=== PATIENT | female | born 1950 | race Caucasian/White ===

== ENCOUNTER → 2017-06-19 | Outpatient (CLI) | payer MEDICARE ==
[~2017-06-19] MED LIST: BONIVA; CALCIUM/MAG/ZINC PO; DICL-86 PO; FAMO1TAB36 PO; FIBER PO; FISH1000 PO; FOLI1TAB PO; INFL100P IV; LEVE500 PO; LEVE750T8 PO; METH-60 IM; TAB-TAB PO; VITA100T55 OR; VITA200017 OR; [UNRECOGNIZED DRUG - OTHER] PO
--- NOTE | 2017-06-21 09:41 | RSPPFT ---
DATE OF PROCEDURE: 06/19/17 COMMENTS: VOLUMES DYNAMIC: FVC and FEV1 moderately reduced. STATIC: TLC and FRC mildly reduced; RV normal. FLOWS: FEV1% normal, FEF 25-75 severely reduced. DIFFUSION: Severely reduced. FLOW VOLUME LOOP: Pattern of variable intrathoracic airways obstruction. IMPRESSION: Moderate obstructive ventilatory defect with reduction in diffusion consistent with emphysema. Airways resistance is increased. There is minimal change post-bronchodilator.
== END ==
LOC: HRSP 09:01
PROVIDERS: ATTEND Internal Medicine
DX: J44.9 Chronic obstructive pulmonary disease, unspecified (principal)
CPT/HCPCS: 94060; 94620; 94726; 94729; 95012

== ENCOUNTER 2017-08-13 18:56 | Inpatient (IN) | payer MEDICARE ==
[~2017-08-13] VITALS: Ht 167.6 cm; Wt 68.6 kg
[2017-08-13 19:05] VITALS: BP 136/78; PULSE 99; RESP 20; TEMP 98.1; O2SAT 94
--- NOTE | 2017-08-13 19:27 | PD ---
HPI . Altered mental status Chief Complaint: Altered Mental Status Time Seen by Provider: 19:07 Travel History International Travel<30 days: No Contact w/Intl Traveler<30days: No Traveled to known affect area: No History of Present Illness HPI 67-year-old female sent in via EMS secondary to altered mental status. EMS said they may have seen a brief 5 second seizure with overall body rigidity and patient has been having a preferential rightward gaze and did not voluntarily moving her left side of her body including left upper and left lower extremity. Patient does spontaneously move all 4 extremities however, and does look to her left spontaneously. Patient is a poor historian. As per discussion with nurse, family was contacted and stated that this is the patient's normal level of activity. Unclear if the patient's partial focal exam above was communicated to the family. [facility] Past Medical History Narrative Medical Past medical history reviewed Cancer: No Diabetes: No Hepatitis: No Hiatal Hernia: No Thyroid Disease: No Past Surgical History Oral Surgery: Yes (AGE 15 T&A) Pacemaker: No Social History Alcohol Use: No Tobacco Use: No Substance Use: No Allergies-Medications (Allergen,Severity, Reaction): Coded Allergies: bertholletia excelsa (Unverified Allergy, Intermediate, MOUTH SWELLING; RESP PROBLEMS, 08/13/17) diatrizoate meglumine (Unverified Allergy, Intermediate, SEVERE HIVES, 08/13) gadobenic acid (Unverified Allergy, Intermediate, SEVERE HIVES, 08/13/17) gadodiamide (Unverified Allergy, Intermediate, SEVERE HIVES, 08/13/17) gadoteridol (Unverified Allergy, Intermediate, SEVERE HIVES, 08/13/17) iodixanol (Unverified Allergy, Intermediate, SEVERE HIVES, 08/13/17) iohexol (Unverified Allergy, Intermediate, SEVERE HIVES, 08/13/17) risedronate sodium (Unverified Allergy, Intermediate, SEVERE CHILLS, ) tree nut (Unverified Allergy, Intermediate, MOUTH SWELLING; RESP PROBLEMS , 08/13/17) walnut (Unverified Allergy, Intermediate, MOUTH SWELLING; DIFFICULT RESP. , 08/13/17) Reported Meds & Prescriptions Reported Meds & Active Scripts Active Reported [Organic Wheat Grass] PO DAILY [Calcium/Mag/Zinc] 1 Tab PO BID [Fiber Supp] 2 Cap PO BID [Boniva ] DIRECTED I.V. Q 3 MONTHS [Methotrexate] IM WEEKLY 50MG/2ML ; PT USES 0.6 CC ONCE WEEKLY Narrative Medication Allergies and medications reviewed Review of Systems ROS Limitations: Altered Mental Status, Poor Historian Physical Exam Exam Limitations: Altered Mental Status, Poor Historian Narrative GENERAL: Awake and confused, responses slowed SKIN: Warm and dry. HEAD: Atraumatic. Normocephalic. EYES: Pupils equal and round. No scleral icterus. No injection or drainage. ENT: No nasal bleeding or discharge. Mucous membranes pink and moist. NECK: Trachea midline. No JVD. CARDIOVASCULAR: Regular rate and rhythm. RESPIRATORY: No accessory muscle use. Clear to auscultation. Breath sounds equal bilaterally. GASTROINTESTINAL: Abdomen soft, non-tender, nondistended. Hepatic and splenic margins not palpable. MUSCULOSKELETAL: Extremities without clubbing, cyanosis, or edema. No obvious deformities. NEUROLOGICAL: Awake confused. Patient responding more to stimulus on her right side. Patient able to spontaneously and move her left MA left lower extremity, however will not move either to command. No facial droop. Speech is somewhat slurred, difficult to assess for dysarthria or word finding secondary to confusion and probable altered mental status. PSYCHIATRIC: Difficult exam secondary to altered mental status Data Data Last Documented VS Vital Signs Date Time Temp Pulse Resp B/P (MAP) Pulse Ox O2 Delivery O2 Flow Rate FiO2 08/13/17 20:07 110 25 152/81 (104) 96 Nasal Cannula 2.00 08/13/17 19:05 98.1 Orders Orders Electrocardiogram (08/13/17 19:16) Ammonia (08/13/17 19:16) Complete Blood Count With Diff (08/13/17 19:16) Comprehensive Metabolic Panel (08/13/17 19:16) Prothrombin Time / Inr (Pt) (08/13/17 19:16) Act Partial Throm Time (Ptt) (08/13/17 19:16) Troponin I (08/13/17 19:16) Thyroid Stimulating Hormone (08/13/17 19:16) Urinalysis - C+S If Indicated (08/13/17 19:16) Lactic Acid Sepsis Protocol (08/13/17 19:16) Blood Culture (08/13/17 19:16) Chest, Single Ap (08/13/17 19:16) Ct Brain W/O Iv Contrast(Rout) (08/13/17 19:16) Blood Glucose (08/13/17 19:16) Ecg Monitoring (08/13/17 19:16) Iv Access Insert/Monitor (08/13/17 19:16) Oximetry (08/13/17 19:16) Sodium Chloride 0.9% Flush (Ns Flush) (08/13/17 19:30) Drug Screen, Random Urine (08/13/17 19:16) Alcohol (Ethanol) (08/13/17 19:16) Tylenol (Acetaminophen) (08/13/17 19:16) Salicylates (Aspirin) (08/13/17 19:16) Lorazepam Inj (Ativan Inj) (08/13/17 20:00) Lorazepam Inj (Ativan Inj) (08/13/17 19:58) Levetiracetam Inj (Keppra Inj) (08/13/17 20:00) ^ Straight Catheter (08/13/17 20:36) Electrocardiogram (08/13/17 ) Aspirin Supp (Aspirin Supp) (08/13/17 20:45) Prolactin (08/13/17 20:45) Heparin-D5w 25,000 U/250 Ml (Heparin-D5w (08/13/17 21:00) Cbc No Diff, Includes Plts (08/16/17 06:00) Occult Blood (Hemoccult) Stool (08/13/17 20:51) Urine Culture (08/13/17 20:42) Consult Neurology (08/13/17 ) Consult Cardiology (08/13/17 ) Admit Order (Ed Use Only) (08/13/17 21:29) Labs Laboratory Tests Test 08/13/17 19:25 08/13/17 19:48 08/13/17 20:42 08/13/17 21:05 White Blood Count 21.4 TH/MM3 Red Blood Count 3.78 MIL/MM3 Hemoglobin 12.0 GM/DL Hematocrit 35.2 % Mean Corpuscular Volume 93.2 FL Mean Corpuscular Hemoglobin 31.7 PG Mean Corpuscular Hemoglobin Concent 34.0 % Red Cell Distribution Width 15.2 % Platelet Count 339 TH/MM3 Mean Platelet Volume 7.7 FL Neutrophils (%) (Auto) 83.4 % Lymphocytes (%) (Auto) 7.8 % Monocytes (%) (Auto) 8.6 % Eosinophils (%) (Auto) 0.0 % Basophils (%) (Auto) 0.2 % Neutrophils # (Auto) 17.8 TH/MM3 Lymphocytes # (Auto) 1.7 TH/MM3 Monocytes # (Auto) 1.8 TH/MM3 Eosinophils # (Auto) 0.0 TH/MM3 Basophils # (Auto) 0.0 TH/MM3 CBC Comment DIFF FINAL Differential Comment Prothrombin Time 10.7 SEC Prothromb Time International Ratio 1.1 RATIO Activated Partial Thromboplast Time 23.8 SEC Blood Urea Nitrogen 28 MG/DL Creatinine 1.20 MG/DL Random Glucose 100 MG/DL Total Protein 8.5 GM/DL Albumin 3.5 GM/DL Calcium Level 9.5 MG/DL Alkaline Phosphatase 74 U/L Aspartate Amino Transf (AST/SGOT) 112 U/L Alanine Aminotransferase (ALT/SGPT) 40 U/L Total Bilirubin 0.8 MG/DL Sodium Level 132 MEQ/L Potassium Level 3.4 MEQ/L Chloride Level 98 MEQ/L Carbon Dioxide Level 25.5 MEQ/L Anion Gap 9 MEQ/L Estimat Glomerular Filtration Rate 45 ML/MIN Lactic Acid Level 1.9 mmol/L Ammonia 14 MCMOL/L Troponin I 2.35 NG/ML Thyroid Stimulating Hormone 3rd Gen 0.381 uIU/ML Acetaminophen Level LESS THAN 2.0 MCG/ML Ethyl Alcohol Level LESS THAN 3 MG/DL Salicylates Level LESS THAN 1.7 MG/DL Urine Color YELLOW Urine Turbidity CLEAR Urine pH 6.0 Urine Specific [place] 1.027 Urine Protein 100 mg/dL Urine Glucose (UA) NEG mg/dL Urine Ketones 10 mg/dL Urine Occult Blood SMALL Urine Nitrite NEG Urine Bilirubin NEG Urine Urobilinogen 2.0 MG/DL Urine Leukocyte Esterase TRACE Urine RBC 1 /hpf Urine WBC 5 /hpf Urine Squamous Epithelial Cells <1 /hpf Urine Amorphous Sediment RARE Urine Bacteria RARE /hpf Urine Mucus FEW /lpf Microscopic Urinalysis Comment CATH-CULTURE IND Urine Opiates Screen NEG Urine Barbiturates Screen NEG Urine Amphetamines Screen NEG Urine Benzodiazepines Screen POS Urine Cocaine Screen NEG Urine Cannabinoids Screen NEG MDM Medical Decision Making Medical Screen Exam Complete: Yes Emergency Medical Condition: Yes Medical Record Reviewed: Yes Differential Diagnosis Altered metal status, confusion, metabolic disorder, acute CVA, postictal/Georges' s postictal paralysis resolving. Narrative Course Patient had brief seizure activity in ED, general tonic-clonic for proctoscopy 20 seconds followed by generalized rigidity with rightward turning of head and rightward gaze for approximately 10 seconds afterwards. This is followed by post post ictal confusion with slow resolution over the next few minutes. Patient was given Ativan 1 mg IV push, and loaded with Keppra 1 g IV piggyback. Case was discussed with neurology. CT head read as normal as per radiology. The patient's troponin resulted at over 2, with EKG noted at sinus rhythm at 99 bpm, T-wave inversions in limb leads to 3 aVF, as well as in the precordium V5 and V6. Case discussed with cardiology on-call. Multiservice care plan developed. With patient's possible CVA/TIA and waxing and waning focal neurological results, as well as patient's possible acute non-STEMI, patient was given aspirin 300 mg per rectum, as well as heparin protocol no bolus. Plan is for admission, observation, repeat cardiac enzymes with serial EKGs, repeat patient's white blood cell count which is elevated at 21.5, repeat neurological exam. Cardiology and neurology consult, admitted to hospitalist service. Discussed with Dr. Gary, Dr. Sultana neurology, Dr. Dyson cardiology Diagnosis Primary Impression: Non-STEMI (non-ST elevated myocardial infarction) Additional Impressions: Seizure Acute cerebrovascul insuff, transient focal neurologic signs/symptoms Admitting Information Admitting Physician Requests: Admit Jevon Farrell MD Aug 13, 2017 19:27
[2017-08-13] MEDS ORDERED: SODIUM CHLORIDE 0.9% FLUSH 10 ML FLUSH IV FLUSH PRN ×2 (19:30→22:45)
[2017-08-13 19:39] VITALS: RESP 18; O2SAT 94
[2017-08-13 19:58] LABS: AUTOMATED NEUTROPHIL # 17.8 TH/MM3 (1.8-7.7); BASOPHIL % 0.2 % (0.0-2.0); HEMATOCRIT 35.2 % (35.0-46.0); LYMPH % 7.8 % (9.0-44.0); LYMPHOCYTE # 1.7 TH/MM3 (1.0-4.8); MEAN CELL VOLUME 93.2 FL (80.0-100.0); MEAN CORPUSCULAR HEMOGLOBIN 31.7 PG (27.0-34.0); MEAN PLATELET VOLUME 7.7 FL (7.0-11.0); MONO % 8.6 % (0.0-8.0); MONOCYTE # 1.8 TH/MM3 (0-0.9); NEUT % 83.4 % (16.0-70.0); PLATELET COUNT 339 TH/MM3 (150-450); RED BLOOD COUNT 3.78 MIL/MM3 (4.00-5.30); RED CELL DISTRIBUTION WIDTH 15.2 % (11.6-17.2); WHITE BLOOD COUNT 21.4 TH/MM3 (4.0-11.0)
[2017-08-13] MEDS ORDERED: LORazepam 2 MG/ML VIAL ONE (19:58)
[2017-08-13] MEDS ORDERED: levETIRAcetam INJ 100 ML IV ONE (20:00)
[2017-08-13] MEDS ORDERED: LORazepam 2 MG/ML VIAL IV PUSH ONE (20:00)
--- NOTE | 2017-08-13 20:04 | RADRPT ---
EXAM DATE/TIME: 08/13/2017 19:36 [facility] COMPARISON: No previous studies available for comparison. INDICATIONS : Altered mental status,seizure RADIATION DOSE: 32.58 CTDIvol (mGy) MEDICAL HISTORY : None SURGICAL HISTORY : None. ENCOUNTER: Initial ACUITY: 1 day PAIN SCALE: Non-responsive LOCATION: cranial TECHNIQUE: Multiple contiguous axial images were obtained of the head. Using automated exposure control and adj ustment of the mA and/or kV according to patient size, radiation dose was kept as low as reasonably a chievable to obtain optimal diagnostic quality images. DICOM format image data is available electro nically for review and comparison. FINDINGS: CEREBRUM: The ventricles are normal for age. No evidence of midline shift, mass lesion, hemorrhage or acute in farction. No extra-axial fluid collections are seen. POSTERIOR FOSSA: The cerebellum and brainstem are intact. The 4th ventricle is midline. The cerebellopontine angle i s unremarkable. EXTRACRANIAL: The visualized portion of the orbits is intact. SKULL: The calvaria is intact. No evidence of skull fracture. CONCLUSION: Normal examination for a patient of this age. Delbert Neumann MD on August 13, 2017 at 20:01 Board Certified Radiologist. This report was verified electronically.
--- NOTE | 2017-08-13 20:05 | RADRPT ---
EXAM DATE/TIME: 08/13/2017 19:45 [facility] COMPARISON: No previous studies available for comparison. INDICATIONS : Syncope. MEDICAL HISTORY : Unobtainable. SURGICAL HISTORY : Unobtainable. ENCOUNTER: Initial ACUITY: 1 day PAIN SCORE: Non-responsive. LOCATION: Bilateral chest FINDINGS: A single view of the chest demonstrates some scattered infiltrates in both lung bases suggestive of a telectasis. The upper lung green are grossly clear. There are no pleural effusions or pulmonary jt a. The heart size is within normal limits. The bony structures are grossly intact.. CONCLUSION: Scattered infiltrates in both lung bases suggestive of atelectasis. Delbert Neumann MD on August 13, 2017 at 20:02 Board Certified Radiologist. This report was verified electronically.
[2017-08-13 20:07] VITALS: BP 152/81; PULSE 110; RESP 25; O2SAT 96
[2017-08-13 20:08] LABS: INTERNATIONAL NORMALIZED RATIO 1.1 RATIO; PROTHROMBIN TIME - PATIENT 10.7 SEC (9.8-11.6)
[2017-08-13 20:18] LABS: ALBUMIN 3.5 GM/DL (3.4-5.0); AST (GOT) 112 U/L (15-37); BICARBONATE 25.5 MEQ/L (21.0-32.0); BLOOD UREA NITROGEN 28 MG/DL (7-18); CALCIUM 9.5 MG/DL (8.5-10.1); CHLORIDE 98 MEQ/L (98-107); GLOMERULAR FILTRATION RATE 45 ML/MIN (>89); GLUCOSE,RANDOM 100 MG/DL (74-106); SODIUM (NA) 132 MEQ/L (136-145)
[2017-08-13 20:19] LABS: ALT (GPT) 40 U/L (10-53)
[2017-08-13 20:22] LABS: ACETAMINOPHEN LESS THAN 2.0 MCG/ML (10.0-30.0)
[2017-08-13 20:29] LABS: ALKALINE PHOSPHATASE 74 U/L (45-117); TOTAL BILIRUBIN ADULT 0.8 MG/DL (0.2-1.0); TOTAL PROTEIN 8.5 GM/DL (6.4-8.2)
[2017-08-13 20:35] LABS: TROPONIN I 2.35 NG/ML (0.02-0.05)
[2017-08-13] MEDS ORDERED: HEPARIN SODIUM - IV 10,000 UNITS/10 ML VIAL IV PUSH ONE (20:45)
[2017-08-13] MEDS ORDERED: HEPARIN-D5W 25,000 U/250 ML 250 ML IV PRN ×3 (20:45→23:00)
[2017-08-13] MEDS ORDERED: ASPIRIN 300 MG SUPP RECTAL ONE (20:45)
[2017-08-13] MEDS ORDERED: ASPIRIN 325 MG TAB PO ONE (20:45)
[2017-08-13 21:01] LABS: AMORPHOUS SEDIMENT, URINE RARE; BACTERIA, URINE RARE /hpf; BILIRUBIN, URINE NEG (NEG); BLOOD, URINE SMALL (NEG); GLUCOSE,URINE NEG (NEG); KETONE, URINE 10 mg/dL (NEG); MUCUS URINE FEW /lpf (OCC); NITRITE,URINE NEG (NEG); SQUAMOUS EPITHELIAL CELL URINE <1 /hpf (0-5); URINE COLOR YELLOW (YELLW/STRAW); URINE LEUKOCYTE ESTERASE TRACE (NEG)
[2017-08-13 21:47] VITALS: BP 137/79; PULSE 103; RESP 23; O2SAT 97
[2017-08-13] MEDS ORDERED: NALOXONE HCL 0.4 MG/ML AMP IV PUSH PRN (22:45)
[2017-08-13] MEDS ORDERED: HEPARIN SODIUM - IV 10,000 UNITS/10 ML VIAL IV PUSH PRN ×2 (23:00)
--- NOTE | 2017-08-13 23:49 | HHI.HP ---
[facility] Joy Gonzalez M.D. Admission Diagnosis Seizure, CVATIA, Non-STEMI Diagnoses: Travel History International Travel<30 Days: No Contact w/Intl Traveler <30 Da: No Traveled to Known Affected Are: No History of Present Illness 67-year-old female with a past medical history significant for seizure disorder was brought to the emergency department for evaluation of altered mental status. The patient was being evaluated in the emergency department when she was noted to have a generalized clonic tonic seizure lasting approximately 30 seconds. She was started on Keppra and given Ativan. At the time of her interview, the patient arouses only to sternal rub and does not answer questions. Review of Systems ROS Limitations: Clinical Condition Unable to obtain secondary to clinical condition Past Family Social History Past Medical History Seizure disorder Past Surgical History Unable to obtain Reported Medications Reported Meds & Active Scripts Active Reported [Organic Wheat Grass] PO DAILY [Calcium/Mag/Zinc] 1 Tab PO BID [Fiber Supp] 2 Cap PO BID [Boniva ] DIRECTED I.V. Q 3 MONTHS [Methotrexate] IM WEEKLY 50MG/2ML ; PT USES 0.6 CC ONCE WEEKLY Allergies: Coded Allergies: bertholletia excelsa (Unverified Allergy, Intermediate, MOUTH SWELLING; RESP PROBLEMS, 08/13/17) diatrizoate meglumine (Unverified Allergy, Intermediate, SEVERE HIVES, 08/13) gadobenic acid (Unverified Allergy, Intermediate, SEVERE HIVES, 08/13/17) gadodiamide (Unverified Allergy, Intermediate, SEVERE HIVES, 08/13/17) gadoteridol (Unverified Allergy, Intermediate, SEVERE HIVES, 08/13/17) iodixanol (Unverified Allergy, Intermediate, SEVERE HIVES, 08/13/17) iohexol (Unverified Allergy, Intermediate, SEVERE HIVES, 08/13/17) risedronate sodium (Unverified Allergy, Intermediate, SEVERE CHILLS, ) tree nut (Unverified Allergy, Intermediate, MOUTH SWELLING; RESP PROBLEMS , 08/13/17) walnut (Unverified Allergy, Intermediate, MOUTH SWELLING; DIFFICULT RESP. , 08/13/17) Family History Unable to obtain Social History Unable to obtain Physical Exam Vital Signs Vital Signs Date Time Temp Pulse Resp B/P (MAP) Pulse Ox O2 Delivery O2 Flow Rate FiO2 08/13/17 21:47 103 23 137/79 (98) 97 Nasal Cannula 2.00 08/13/17 20:07 110 25 152/81 (104) 96 Nasal Cannula 2.00 08/13/17 19:39 18 94 Room Air 08/13/17 19:28 99 18 94 Room Air 08/13/17 19:05 98.1 99 20 136/78 (97) 94 Physical Exam GENERAL: female lying in bed, snoring. Arouses only to sternal rub. SKIN: No rashes, ecchymoses or lesions. Cool and dry. HEAD: Atraumatic. Normocephalic. EYES: Pupils pinpoint. No injection or drainage. ENT: Nose without bleeding, purulent drainage or septal hematoma. Airway patent. NECK: Trachea midline. No JVD or lymphadenopathy. CARDIOVASCULAR: Regular rate and rhythm without murmurs, gallops, or rubs. RESPIRATORY: Clear to auscultation. Breath sounds equal bilaterally in the anterior green. No wheezes, rales, or rhonchi. GASTROINTESTINAL: Abdomen soft, nondistended. No hepato-splenomegaly, or palpable masses. MUSCULOSKELETAL: Extremities without clubbing, cyanosis, or edema. NEUROLOGICAL: Unable to assess secondary to patient's clinical condition Laboratory Laboratory Tests Test 08/13/17 19:25 08/13/17 19:48 08/13/17 20:42 08/13/17 21:05 White Blood Count 21.4 Red Blood Count 3.78 Hemoglobin 12.0 Hematocrit 35.2 Mean Corpuscular Volume 93.2 Mean Corpuscular Hemoglobin 31.7 Mean Corpuscular Hemoglobin Concent 34.0 Red Cell Distribution Width 15.2 Platelet Count 339 Mean Platelet Volume 7.7 Neutrophils (%) (Auto) 83.4 Lymphocytes (%) (Auto) 7.8 Monocytes (%) (Auto) 8.6 Eosinophils (%) (Auto) 0.0 Basophils (%) (Auto) 0.2 Neutrophils # (Auto) 17.8 Lymphocytes # (Auto) 1.7 Monocytes # (Auto) 1.8 Eosinophils # (Auto) 0.0 Basophils # (Auto) 0.0 CBC Comment DIFF FINAL Differential Comment Prothrombin Time 10.7 Prothromb Time International Ratio 1.1 Activated Partial Thromboplast Time 23.8 Blood Urea Nitrogen 28 Creatinine 1.20 Random Glucose 100 Total Protein 8.5 Albumin 3.5 Calcium Level 9.5 Alkaline Phosphatase 74 Aspartate Amino Transf (AST/SGOT) 112 Alanine Aminotransferase (ALT/SGPT) 40 Total Bilirubin 0.8 Sodium Level 132 Potassium Level 3.4 Chloride Level 98 Carbon Dioxide Level 25.5 Anion Gap 9 Estimat Glomerular Filtration Rate 45 Lactic Acid Level 1.9 Ammonia 14 Troponin I 2.35 Thyroid Stimulating Hormone 3rd Gen 0.381 Acetaminophen Level LESS THAN 2.0 Ethyl Alcohol Level LESS THAN 3 Salicylates Level LESS THAN 1.7 Urine Color YELLOW Urine Turbidity CLEAR Urine pH 6.0 Urine Specific [place] 1.027 Urine Protein 100 Urine Glucose (UA) NEG Urine Ketones 10 Urine Occult Blood SMALL Urine Nitrite NEG Urine Bilirubin NEG Urine Urobilinogen 2.0 Urine Leukocyte Esterase TRACE Urine RBC 1 Urine WBC 5 Urine Squamous Epithelial Cells <1 Urine Amorphous Sediment RARE Urine Bacteria RARE Urine Mucus FEW Microscopic Urinalysis Comment CATH-CULTURE IND Urine Opiates Screen NEG Urine Barbiturates Screen NEG Urine Amphetamines Screen NEG Urine Benzodiazepines Screen POS Urine Cocaine Screen NEG Urine Cannabinoids Screen NEG Date/Time Source Procedure Growth Status 08/13/17 19:25 Blood Peripheral Aerobic Blood Culture Pending Received 08/13/17 19:25 Blood Peripheral Anaerobic Blood Culture Pending Received 08/13/17 20:42 Urine Catheterized Urine Urine Culture Pending Received Result Diagram: 08/13/17192408/13/171924 Caprini VTE Risk Assessment Caprini VTE Risk Assessment: Mod/High Risk (score >= 2) Caprini Risk Assessment Model Point Value = 1 Point Value = 2 Point Value = 3 Point Value = 5 Age 41-60 Minor surgery BMI > 25 kg/m2 Swollen legs Varicose veins or History of unexplained or recurrent spontaneous Oral contraceptives or hormone replacement Sepsis (< 1 month) Serious lung disease, including pneumonia (< 1 month) Abnormal pulmonary function Acute myocardial infarction Congestive heart failure (< 1 month) History of inflammatory bowel disease Medical patient at bed rest Age 61-74 Arthroscopic surgery Major open surgery (> 45 min) Laparoscopic surgery (> 45 min) Malignancy Confined to bed (> 72 hours) Immobilizing plaster cast Central venous access Age >= 75 History of VTE Family history of VTE Factor V Leiden Prothrombin [id number] Lupus anticoagulant Anticardiolipin antibodies Elevated serum homocysteine Heparin-induced thrombocytopenia Other congenital or acquired thrombophilia Stroke (< 1 month) Elective arthroplasty Hip, pelvis, or leg fracture Acute spinal cord injury (< 1 month) Prophylaxis Regimen Total Risk Factor Score Risk Level Prophylaxis Regimen 0-1 Low Early ambulation 2 Moderate Order ONE of the following: *Sequential Compression Device (SCD) *Heparin 5000 units SQ BID 3-4 Higher Order ONE of the following medications: *Heparin 5000 units SQ TID *Enoxaparin/Lovenox 40 mg SQ daily (WT < 150 kg, CrCl > 30 mL/min) *Enoxaparin/Lovenox 30 mg SQ daily (WT < 150 kg, CrCl > 10-29 mL/min) *Enoxaparin/Lovenox 30 mg SQ BID (WT < 150 kg, CrCl > 30 mL/min) AND/OR *Sequential Compression Device (SCD) 5 or more Highest Order ONE of the following medications: *Heparin 5000 units SQ TID (Preferred with Epidurals) *Enoxaparin/Lovenox 40 mg SQ daily (WT < 150 kg, CrCl > 30 mL/min) *Enoxaparin/Lovenox 30 mg SQ daily (WT < 150 kg, CrCl > 10-29 mL/min) *Enoxaparin/Lovenox 30 mg SQ BID (WT < 150 kg, CrCl > 30 mL/min) AND *Sequential Compression Device (SCD) Assessment and Plan Assessment and Plan Assessment/plan: 1. NSTEMI Troponin 2.35 EKG significant for T-wave inversion in II, III, aVF and V6, personally reviewed. No ST segment elevations or depressions Heparin drip Cardiology consulted, appreciate assistance 2. Seizure disorder Patient status post Ativan and loaded with Keppra Continue Keppra Unclear what home medications the patient takes Neurology consulted, appreciate recommendations EEG pending 3. UTI UA significant for rare bacteria, trace leukocyte esterase Rocephin Or culture pending FEN NPO Electrolytes: monitor and replete prn Heparin ggt Physician Certification 2 Midnight Certification Type: Admission for Inpatient Services Order for Inpatient Services The services are ordered in accordance with Medicare regulations or non- Medicare payer requirements, as applicable. In the case of services not specified as inpatient-only, they are appropriately provided as inpatient services in accordance with the 2-midnight benchmark. Estimated LOS (days): 2 2 days is the estimated time the patient will need to remain in the hospital, assuming treatment plan goals are met and no additional complications. Post-Hospital Plan: Not yet determined Tory Gary MD Aug 13, 2017 23:49
[2017-08-14] VITALS (8 sets, daily range): BP systolic 110–138; BP diastolic 67–82; PULSE 87–100; RESP 16–21; TEMP 98–98.6; O2SAT 94–98
[2017-08-14] MEDS: HEPARIN-D5W 25,000 U/250 ML 250 ML IV PRN (00:03)
[2017-08-14] MEDS: cefTRIAXone INJ 1,000 MG in SODIUM CHLORIDE 0.9% INJ 100 ML IV SCH ×2 (01:03→23:19)
[2017-08-14 02:57] LABS: TROPONIN I 1.52 NG/ML (0.02-0.05)
[2017-08-14] MEDS ORDERED: HEPARIN SODIUM - IV 10,000 UNITS/10 ML VIAL IV PUSH PRN ×2 (05:00)
--- NOTE | 2017-08-14 07:51 | PD.CONS ---
HPI Service cardiology Consult Requested By Reason for Consult NSTEMI Primary Care Physician Joy Gonzalez M.D. History of Present Illness This is a 67 yo WF who was brought to ED last night for altered mental status and apparently had a witnessed seizure in by medics. patient currently is arousable but is a poor historian. she does state she's had a seizure disorder since her 20's and denies cardiac history. Troponin levels are elevated as high as 2.35 with ECG showing T wave inversion inferiorly. She denies chest pain or sob. (Radha Russo) Review of Systems Consitutional: DENIES: Fatigue, Fever, Chills, Weight gain, Weight loss Respiratory: DENIES: Cough, Snoring, Shortness of breath, Wheezing, Sputum production Cardiovascular: DENIES: Chest pain, Palpitations, Syncope, Tachycardia Gastrointestinal: DENIES: Nausea, Vomiting, Change in bowel habits, Reflux, Bloody stools, Melena (Radha Russo) Past Family Social History Allergies: Coded Allergies: bertholletia excelsa (Unverified Allergy, Intermediate, MOUTH SWELLING; RESP PROBLEMS, 08/13/17) diatrizoate meglumine (Unverified Allergy, Intermediate, SEVERE HIVES, 08/13) gadobenic acid (Unverified Allergy, Intermediate, SEVERE HIVES, 08/13/17) gadodiamide (Unverified Allergy, Intermediate, SEVERE HIVES, 08/13/17) gadoteridol (Unverified Allergy, Intermediate, SEVERE HIVES, 08/13/17) iodixanol (Unverified Allergy, Intermediate, SEVERE HIVES, 08/13/17) iohexol (Unverified Allergy, Intermediate, SEVERE HIVES, 08/13/17) risedronate sodium (Unverified Allergy, Intermediate, SEVERE CHILLS, ) tree nut (Unverified Allergy, Intermediate, MOUTH SWELLING; RESP PROBLEMS , 08/13/17) walnut (Unverified Allergy, Intermediate, MOUTH SWELLING; DIFFICULT RESP. , 08/13/17) Past Medical History seizure disorder Past Surgical History unknown Reported Medications Reported Meds & Active Scripts Active Reported [Organic Wheat Grass] PO DAILY [Calcium/Mag/Zinc] 1 Tab PO BID [Fiber Supp] 2 Cap PO BID [Boniva ] DIRECTED I.V. Q 3 MONTHS [Methotrexate] IM WEEKLY 50MG/2ML ; PT USES 0.6 CC ONCE WEEKLY Active Ordered Medications Current Medications Medications (Trade) Dose Ordered Sig/Zander Route Start Time Stop Time Status Last Admin (NS Flush) 2 ml UNSCH PRN IV FLUSH 08/13/17 22:45 (NS Flush) 2 ml BID IV FLUSH 08/14/17 09:00 (Narcan Inj) 0.4 mg UNSCH PRN IV PUSH 08/13/17 22:45 Heparin Sodium/ Dextrose 250 ml @ 8 mls/hr TITRATE PRN IV 08/13/17 23:00 08/14/17 00:03 (Heparin Inj) 5,000 units UNSCH PRN IV PUSH 08/13/17 23:00 (Heparin Inj) 2,500 units UNSCH PRN IV PUSH 08/13/17 23:00 Ceftriaxone Sodium 1000 mg/ Sodium Chloride 100 ml @ 200 mls/hr Q24H IV 08/13/17 23:45 08/14/17 01:03 Levetriacetam 500 mg/Sodium Chloride 105 ml @ 420 mls/hr Q12HR IV 08/14/17 09:00 Family History non-contributory Social History former smoker, denies etoh use (Radha Russo) Physical Exam Vital Signs Vital Signs Date Time Temp Pulse Resp B/P (MAP) Pulse Ox O2 Delivery O2 Flow Rate FiO2 08/14/17 04:00 87 08/14/17 04:00 98.4 93 18 122/70 (87) 98 08/14/17 00:15 08/14/17 00:00 98.6 95 21 132/74 (93) 98 08/13/17 21:47 103 23 137/79 (98) 97 Nasal Cannula 2.00 08/13/17 20:07 110 25 152/81 (104) 96 Nasal Cannula 2.00 08/13/17 19:39 18 94 Room Air 08/13/17 19:28 99 18 94 Room Air 08/13/17 19:05 98.1 99 20 136/78 (97) 94 Physical Exam GENERAL: SKIN: Warm and dry. HEAD: Atraumatic. Normocephalic. EYES: Pupils equal and round. No scleral icterus. No injection or drainage. ENT: No nasal bleeding or discharge. Mucous membranes pink and moist. NECK: Trachea midline. No JVD. CARDIOVASCULAR: Regular rate and rhythm. no murmurs RESPIRATORY: No accessory muscle use. Clear to auscultation. Breath sounds equal bilaterally. GASTROINTESTINAL: Abdomen soft, non-tender, nondistended. Hepatic and splenic margins not palpable. MUSCULOSKELETAL: Extremities without clubbing, cyanosis, or edema. No obvious deformities. NEUROLOGICAL: Awake and alert but appears sedated. Normal speech. PSYCHIATRIC: Appropriate mood, Laboratory Laboratory Tests Test 08/13/17 19:25 08/13/17 19:48 08/13/17 20:42 08/13/17 21:05 White Blood Count 21.4 Red Blood Count 3.78 Hemoglobin 12.0 Hematocrit 35.2 Mean Corpuscular Volume 93.2 Mean Corpuscular Hemoglobin 31.7 Mean Corpuscular Hemoglobin Concent 34.0 Red Cell Distribution Width 15.2 Platelet Count 339 Mean Platelet Volume 7.7 Neutrophils (%) (Auto) 83.4 Lymphocytes (%) (Auto) 7.8 Monocytes (%) (Auto) 8.6 Eosinophils (%) (Auto) 0.0 Basophils (%) (Auto) 0.2 Neutrophils # (Auto) 17.8 Lymphocytes # (Auto) 1.7 Monocytes # (Auto) 1.8 Eosinophils # (Auto) 0.0 Basophils # (Auto) 0.0 CBC Comment DIFF FINAL Differential Comment Prothrombin Time 10.7 Prothromb Time International Ratio 1.1 Activated Partial Thromboplast Time 23.8 Blood Urea Nitrogen 28 Creatinine 1.20 Random Glucose 100 Total Protein 8.5 Albumin 3.5 Calcium Level 9.5 Alkaline Phosphatase 74 Aspartate Amino Transf (AST/SGOT) 112 Alanine Aminotransferase (ALT/SGPT) 40 Total Bilirubin 0.8 Sodium Level 132 Potassium Level 3.4 Chloride Level 98 Carbon Dioxide Level 25.5 Anion Gap 9 Estimat Glomerular Filtration Rate 45 Lactic Acid Level 1.9 Ammonia 14 Troponin I 2.35 Thyroid Stimulating Hormone 3rd Gen 0.381 Acetaminophen Level LESS THAN 2.0 Ethyl Alcohol Level LESS THAN 3 Salicylates Level LESS THAN 1.7 Urine Color YELLOW Urine Turbidity CLEAR Urine pH 6.0 Urine Specific Anton 1.027 Urine Protein 100 Urine Glucose (UA) NEG Urine Ketones 10 Urine Occult Blood SMALL Urine Nitrite NEG Urine Bilirubin NEG Urine Urobilinogen 2.0 Urine Leukocyte Esterase TRACE Urine RBC 1 Urine WBC 5 Urine Squamous Epithelial Cells <1 Urine Amorphous Sediment RARE Urine Bacteria RARE Urine Mucus FEW Microscopic Urinalysis Comment CATH-CULTURE IND Urine Opiates Screen NEG Urine Barbiturates Screen NEG Urine Amphetamines Screen NEG Urine Benzodiazepines Screen POS Urine Cocaine Screen NEG Urine Cannabinoids Screen NEG Test 08/14/17 01:52 08/14/17 05:25 Total Creatine Kinase 3345 Creatine Kinase MB 3.8 Creatine Kinase MB % 0.1 Troponin I 1.52 Activated Partial Thromboplast Time 24.0 Date/Time Source Procedure Growth Status 08/13/17 19:25 Blood Peripheral Aerobic Blood Culture Pending Received 08/13/17 19:25 Blood Peripheral Anaerobic Blood Culture Pending Received 08/13/17 20:42 Urine Catheterized Urine Urine Culture Pending Received (Radha Russo) Result Diagram: 08/13/17192408/13/171924 Imaging Last [address] 08/13/171915 Signed Impressions: Service Date/Time: Sunday, August 13, 2017 19:36 - CONCLUSION: Normal examination for a patient of this age. Delbert Neumann MD Chest X-Ray 08/13/171915 Signed Impressions: Service Date/Time: Sunday, August 13, 2017 19:45 - CONCLUSION: Scattered infiltrates in both lung bases suggestive of atelectasis. Delbert Neumann MD (Radha Russo) Assessment and Plan Problem List: (1) Non-STEMI (non-ST elevated myocardial infarction) ICD Codes: I21.4 - Non-ST elevation (NSTEMI) myocardial infarction Status: Acute Assessment and Plan This is a 67 yo WF who was brought to ED last night for altered mental status and apparently had a witnessed seizure in by medics. patient currently is arousable but is a poor historian and appears sedated. she does state she's had a seizure disorder since her 20's and denies cardiac history. Troponin levels are elevated as high as 2.35 with ECG showing T wave inversion inferiorly. NSTEMI- will require cardiac catheterization once mental status improves. (Radha Russo) Assessment and Plan Mental status seems to be improved can compared to yesterday. Electrocardiogram and troponin both suggest acute coronary syndrome although the patient has been chest pain-free. We discussed several options, I think cardiac catheterization would likely be the most appropriate and definitive test. At this point given the patient's just made a mental recovery will hold off doing anything invasive. Potentially plan for possible cardiac catheterization tomorrow if the patient continues to show improvement in her mental status and is agreeable. Does look like she has a potential dye allergy and so we may need to proceed with pretreatment. Alternatively it could entertain the thought of stress test given that she has been asymptomatic to determine the severity of ischemic defect (Saturnino Dyson MD) Radha Russo Aug 14, 2017 07:51 Saturnino Dyson MD Aug 14, 2017 13:52
[2017-08-14] MEDS: SODIUM CHLORIDE 0.9% FLUSH 10 ML FLUSH IV FLUSH SCH ×2 (07:54→20:55)
[2017-08-14] MEDS: levETIRAcetam INJ 500 MG in SODIUM CHLORIDE 0.9% INJ 100 ML IV SCH ×2 (07:54→20:55)
[2017-08-14 08:29] LABS: ALBUMIN 2.8 GM/DL (3.4-5.0); AST (GOT) 79 U/L (15-37); BICARBONATE 23.9 MEQ/L (21.0-32.0); BLOOD UREA NITROGEN 26 MG/DL (7-18); CALCIUM 8.7 MG/DL (8.5-10.1); CHLORIDE 103 MEQ/L (98-107); CREATININE 0.91 MG/DL (0.50-1.00); GLOMERULAR FILTRATION RATE 61 ML/MIN (>89); GLUCOSE,RANDOM 91 MG/DL (74-106); SODIUM (NA) 137 MEQ/L (136-145)
[2017-08-14 08:34] LABS: ALKALINE PHOSPHATASE 62 U/L (45-117); ALT (GPT) 33 U/L (10-53); TOTAL BILIRUBIN ADULT 0.5 MG/DL (0.2-1.0); TOTAL PROTEIN 7.1 GM/DL (6.4-8.2)
--- NOTE | 2017-08-14 12:29 | MB ---
cc: DAGMAR JOHNSON M.D. DATE OF CONSULTATION 08/14/2017 REASON FOR CONSULTATION This is a 67-year-old seen in neurological consultation. She follows with Dr. Sultana and apparently takes Briviact for seizures. She had been doing well, but yesterday apparently had multiple seizures. In the emergency room, she was treated with Keppra and Ativan. She admits to missing some of her seizure medication recently. The patient has been lethargic, but awakens and seems to be reasonably oriented overall here in the hospital. I spoke with her nurse. She had a CT brain yesterday showing no abnormalities. PHYSICAL EXAM Exam shows the patient to be alert intermittently, she was able to remain alert for the exam. She was oriented and grossly though initially had difficulty with the specific date. She knew the initial level of her seizure medication and through further discussion, we discovered what medications she has been taking at home. She is moving all four extremities without any focal deficits. The ocular movements and visual green were full. The neck is supple. Reflexes were diminished, nearly absent throughout. Plantar responses were flexor. LABORATORY DATA White count 21.4, hemoglobin 12.0, platelets 339. BUN 26, glucose 91, sodium and potassium normal. CPK elevated to 3345. ASSESSMENT Multiple seizures yesterday. She may have missed her medication. She seemed to be doing well on the Briviact and she may have had problems with Keppra in the past. We are checking to see if her Briviact is available to resume medication and if not we will continue the Keppra for the time being and then this could be switched back on an outpatient basis. She follows with Dr. Sultana. We will monitor and if she remains stable, she might be discharged tomorrow. Thank you for asking us to assist in her care. MD MICAELA Cerna/CARMELINA /12:04 PM /12:18 PM
[2017-08-14] MEDS ORDERED: CALCIUM CARBONATE 500 MG CHEWABLE TAB CHEW PRN (12:45)
[2017-08-14] MEDS ORDERED: ONDANSETRON HCL 4 MG/2 ML VIAL IV PUSH PRN (12:45)
[2017-08-14] MEDS ORDERED: ACETAMINOPHEN 325 MG TAB PO PRN (12:45)
--- NOTE | 2017-08-14 12:47 | HHI.PR ---
Subjective Remarks Follow-up non-ST elevation ND/seizure disorder 08/14/17-patient seen and examined, alert and oriented 2. Denies any chest pain or shortness of breath. No seizure activity since admission. Decreased urine output Objective Vitals Vital Signs Date Time Temp Pulse Resp B/P (MAP) Pulse Ox O2 Delivery O2 Flow Rate FiO2 08/14/17 11:00 95 08/14/17 09:42 89 08/14/17 08:00 98.6 93 16 116/68 (84) 96 08/14/17 04:00 87 08/14/17 04:00 98.4 93 18 122/70 (87) 98 08/14/17 00:15 08/14/17 00:00 98.6 95 21 132/74 (93) 98 08/13/17 21:47 103 23 137/79 (98) 97 Nasal Cannula 2.00 08/13/17 20:07 110 25 152/81 (104) 96 Nasal Cannula 2.00 08/13/17 19:39 18 94 Room Air 08/13/17 19:28 99 18 94 Room Air 08/13/17 19:05 98.1 99 20 136/78 (97) 94 I/O 08/13/17 08/13/17 08/13/17 08/14/17 08/14/17 08/14/17 07:00 15:00 23:00 07:00 15:00 23:00 Intake Total 100 ml 105 ml Balance 100 ml 105 ml Intake IV Total 100 ml 105 ml Result Diagram: 08/13/17192408/14/17 0741 Imaging Last Impressions Head CT 08/13/171915 Signed Impressions: Service Date/Time: Sunday, August 13, 2017 19:36 - CONCLUSION: Normal examination for a patient of this age. Delbert Neumann MD Chest X-Ray 08/13/171915 Signed Impressions: Service Date/Time: Sunday, August 13, 2017 19:45 - CONCLUSION: Scattered infiltrates in both lung bases suggestive of atelectasis. Delbert Neumann MD Objective Remarks GENERAL: NAD SKIN: Warm and dry. HEAD: Normocephalic. EYES: No scleral icterus. No injection or drainage. NECK: Supple, trachea midline. No JVD or lymphadenopathy. CARDIOVASCULAR: Regular rate and rhythm without murmurs, gallops, or rubs. RESPIRATORY: Breath sounds equal bilaterally. No accessory muscle use. GASTROINTESTINAL: Abdomen soft, non-tender, nondistended. MUSCULOSKELETAL: No cyanosis, or edema. BACK: Nontender without obvious deformity. No CVA tenderness. A/P Problem List: (1) Non-STEMI (non-ST elevated myocardial infarction) ICD Code: I21.4 - Non-ST elevation (NSTEMI) myocardial infarction Status: Acute (2) Seizure ICD Code: R56.9 - Unspecified convulsions Status: Acute Assessment and Plan 67-year-old female with Non-ST elevation ND Appreciate input from cardiology Plan for possible nuclear stress test versus left heart catheterization pending improvement of encephalopathy Continue heparin drip, ASA 2D echo pending Seizure disorder Head CT noted and reviewed by me without any intracranial abnormality Check EEG Neurology consultation pending Currently on Keppra Seizure precaution Abnormal UA Leukocytosis CXR noted and reviewed by me with finding of atelectasis Currently on Rocephin pending urine culture Decreased urine output Bladder scan ordered NS with IVF DVT prophylaxis: Bilateral SCDs Chilo Galvan MD Aug 14, 2017 12:47
[2017-08-14 13:47] LABS: TROPONIN I 0.72 NG/ML (0.02-0.05)
--- NOTE | 2017-08-14 14:18 | MG ---
cc: RUTH SULTANA M.D., JENNIFER L. MD Lab No: [id number] Date: 08/14/2017 : 1950 Age: 67 Sex: F Room 1509. Photic stimulation only. Awake, drowsy, asleep study. CT normal. INDICATION Admitted with possible seizure, change in mental status, history of epilepsy. Current medicines are ceftriaxone and heparin listed. DESCRIPTION OF RECORD Eyes are closed. There is some background of 6-8 Hz at times. She tends to drift off. There is some minor attenuation in the background. The EKG looks sinus. There is a lot of eye movement artifact unfortunately. At times it almost appears that there is some beta frequency. Photic stimulation with minimal driving response, more myogenic artifact from eye movement. There is no epileptiform features in this recording. IMPRESSION Overall there is normal background rhythm with some beta frequency, may be medicine effect. However, no appreciable epileptiform features are seen. Clinical correlation. Ruth Sultana MD DF/MIR /1:53 PM /2:06 PM
--- NOTE | 2017-08-14 14:31 | EKG ---
Date Performed: 08/13/2017 Time Performed: 20:00:26 PTAGE: 67 years EKG: SINUS TACHYCARDIA INFERIOR MYOCARDIAL INFARCTION ACUTE NE Compared to PREVIOUS TRACING there is now an acute inferior infarction PREVIOUS TRACIN10/07/10 DOCTOR: Edilberto Juárez Interpretating Date/Time 08/14/2017 14:29:31
--- NOTE | 2017-08-14 14:36 | EKG ---
Date Performed: 08/13/2017 Time Performed: 20:45:00 PTAGE: 67 years EKG: SINUS TACHYCARDIA ST DEVIATION AND MODERATE T-WAVE ABNORMALITY, CONSIDER LATERAL ISCHEMIA S T DEVIATION AND MODERATE T-WAVE ABNORMALITY, CONSIDER INFERIOR ISCHEMIA ABNORMAL ECG Compared to PREVIOUS TRACING inferior infarction changes continue to evolve PREVIOUS TRACIN2017 20.01 DOCTOR: Edilberto Juárez Interpretating Date/Time 08/14/2017 14:30:50
--- NOTE | 2017-08-14 14:38 | EKG ---
Date Performed: 08/14/2017 Time Performed: 07:09:37 PTAGE: 67 years EKG: ECTOPIC ATRIAL RHYTHM LEFT ATRIAL ENLARGEMENT INFERIOR MYOCARDIAL INFARCTION , OF INDETERMI KYLE AGE ABNORMAL ECG Compared to PREVIOUS TRACING inferior infarction continues to evolve PREVIOUS TRACIN08/13/2017 20 .45 DOCTOR: Edilberto Juárez Interpretating Date/Time 08/14/2017 14:31:17
[2017-08-15] VITALS (9 sets, daily range): BP systolic 116–137; BP diastolic 63–81; PULSE 74–100; RESP 18–20; TEMP 97–98.9; O2SAT 94–97
[2017-08-15] MEDS ORDERED: HYDR50TA94 PO (00:36)
[2017-08-15] MEDS ORDERED: DOXY100C PO (00:40)
[2017-08-15] MEDS ORDERED: BENZ1CAP54 PO (00:40)
[2017-08-15] MEDS ORDERED: LAMO200T PO (00:40)
[2017-08-15 03:08] LABS: AUTOMATED NEUTROPHIL # 12.4 TH/MM3 (1.8-7.7); BASOPHIL # 0.1 TH/MM3 (0-0.2); BASOPHIL % 0.6 % (0.0-2.0); EOSINOPHIL # 0.2 TH/MM3 (0-0.4); EOSINOPHIL % 1.2 % (0.0-4.0); HEMATOCRIT 31.3 % (35.0-46.0); HEMOGLOBIN 10.4 GM/DL (11.6-15.3); LYMPH % 15.1 % (9.0-44.0); LYMPHOCYTE # 2.5 TH/MM3 (1.0-4.8); MEAN CELL VOLUME 93.9 FL (80.0-100.0); MEAN CORPUSCULAR HEMOGLOBIN 31.2 PG (27.0-34.0); MEAN CORPUSCULAR HGB CONC 33.2 % (32.0-36.0); MEAN PLATELET VOLUME 7.4 FL (7.0-11.0); MONOCYTE # 1.3 TH/MM3 (0-0.9); NEUT % 75.1 % (16.0-70.0); PLATELET COUNT 265 TH/MM3 (150-450); RED BLOOD COUNT 3.34 MIL/MM3 (4.00-5.30); RED CELL DISTRIBUTION WIDTH 15.1 % (11.6-17.2); WHITE BLOOD COUNT 16.6 TH/MM3 (4.0-11.0)
[2017-08-15] MEDS: HEPARIN-D5W 25,000 U/250 ML 250 ML IV PRN (03:28)
[2017-08-15 03:32] LABS: CHOLESTEROL 143 MG/DL (120-200); TRIGLYCERIDES 93 MG/DL (42-150)
[2017-08-15 03:34] LABS: HDL CHOLESTEROL 57.1 MG/DL (40.0-60.0); LDL CHOLESTEROL 67 MG/DL (0-99)
[2017-08-15] MEDS: levETIRAcetam INJ 500 MG in SODIUM CHLORIDE 0.9% INJ 100 ML IV SCH ×2 (07:59→21:35)
[2017-08-15] MEDS: SODIUM CHLORIDE 0.9% FLUSH 10 ML FLUSH IV FLUSH SCH ×2 (07:59→21:00)
[2017-08-15] MEDS: ASPIRIN EC 81 MG TABEC PO SCH (07:59)
--- NOTE | 2017-08-15 08:38 | HHI.PR ---
Review/Management Daily Summary 08/15 doing well looks well possibly d/c to resume breviact home dose and follow with dr Sultana Subjective Subjective Comments No acute events reported No headache No chest pain No dyspnea Active Medications Current Medications Medications (Trade) Dose Ordered Sig/Zander Route Start Time Stop Time Status Last Admin (NS Flush) 2 ml UNSCH PRN IV FLUSH 08/13/17 22:45 (NS Flush) 2 ml BID IV FLUSH 08/14/17 09:00 08/15/17 07:59 (Narcan Inj) 0.4 mg UNSCH PRN IV PUSH 08/13/17 22:45 Heparin Sodium/ Dextrose 250 ml @ 8 mls/hr TITRATE PRN IV 08/13/17 23:00 08/15/17 03:28 (Heparin Inj) 5,000 units UNSCH PRN IV PUSH 08/13/17 23:00 (Heparin Inj) 2,500 units UNSCH PRN IV PUSH 08/13/17 23:00 08/15/17 03:53 Ceftriaxone Sodium 1000 mg/ Sodium Chloride 100 ml @ 200 mls/hr Q24H IV 08/13/17 23:45 08/14/17 23:19 Levetriacetam 500 mg/Sodium Chloride 105 ml @ 420 mls/hr Q12HR IV 08/14/17 09:00 08/15/17 07:59 (Ecotrin Ec) 81 mg DAILY PO 08/15/17 09:00 08/15/17 07:59 (Tylenol) 650 mg Q4H PRN PO 08/14/17 12:45 08/15/17 03:36 (Zofran Inj) 4 mg Q6H PRN IV PUSH 08/14/17 12:45 (Tums Chew) 1,000 mg TID PRN CHEW 08/14/17 12:45 Allergies Allergies Coded Allergies bertholletia excelsa (Unverified Allergy, Intermediate, MOUTH SWELLING; RESP PROBLEMS, 08/13/17) diatrizoate meglumine (Unverified Allergy, Intermediate, SEVERE HIVES, 08/13/17) gadobenic acid (Unverified Allergy, Intermediate, SEVERE HIVES, 08/13/17) gadodiamide (Unverified Allergy, Intermediate, SEVERE HIVES, 08/13/17) gadoteridol (Unverified Allergy, Intermediate, SEVERE HIVES, 08/13/17) iodixanol (Unverified Allergy, Intermediate, SEVERE HIVES, 08/13/17) iohexol (Unverified Allergy, Intermediate, SEVERE HIVES, 08/13/17) risedronate sodium (Unverified Allergy, Intermediate, SEVERE CHILLS, 08/13/17) tree nut (Unverified Allergy, Intermediate, MOUTH SWELLING; RESP PROBLEMS, 08/13) walnut (Unverified Allergy, Intermediate, MOUTH SWELLING; DIFFICULT RESP., 08/13) Exam I&O / VS Vital Signs Date Time Temp Pulse Resp B/P (MAP) Pulse Ox O2 Delivery O2 Flow Rate FiO2 08/15/17 08:01 98.3 76 19 116/64 (81) 95 08/15/17 04:00 98.9 74 20 121/63 (82) 95 08/15/17 01:00 97.0 87 20 134/81 (98) 97 08/15/17 00:00 98 08/14/17 20:00 98 08/14/17 20:00 98.4 100 18 138/82 (100) 96 08/14/17 16:00 98.0 90 16 110/67 (81) 94 08/14/17 12:00 98.3 92 16 134/72 (92) 96 08/14/17 11:00 95 08/14/17 09:42 89 Objective Micro and Labs Laboratory Tests Test 08/14/17 12:23 08/14/17 12:25 08/14/17 20:15 08/15/17 02:52 Total Creatine Kinase 2641 Creatine Kinase MB 2.3 Creatine Kinase MB % 0.1 Troponin I 0.72 Activated Partial Thromboplast Time 27.8 32.2 36.4 White Blood Count 16.6 Red Blood Count 3.34 Hemoglobin 10.4 Hematocrit 31.3 Mean Corpuscular Volume 93.9 Mean Corpuscular Hemoglobin 31.2 Mean Corpuscular Hemoglobin Concent 33.2 Red Cell Distribution Width 15.1 Platelet Count 265 Mean Platelet Volume 7.4 Neutrophils (%) (Auto) 75.1 Lymphocytes (%) (Auto) 15.1 Monocytes (%) (Auto) 8.0 Eosinophils (%) (Auto) 1.2 Basophils (%) (Auto) 0.6 Neutrophils # (Auto) 12.4 Lymphocytes # (Auto) 2.5 Monocytes # (Auto) 1.3 Eosinophils # (Auto) 0.2 Basophils # (Auto) 0.1 CBC Comment DIFF FINAL Differential Comment Triglycerides Level 93 Cholesterol Level 143 LDL Cholesterol 67 HDL Cholesterol 57.1 Cholesterol/HDL Ratio 2.50 Date/Time Source Procedure Growth Status 08/13/17 19:25 Blood Peripheral Aerobic Blood Culture - Preliminary NO GROWTH IN 1 DAY Resulted 08/13/17 19:25 Blood Peripheral Anaerobic Blood Culture - Preliminary NO GROWTH IN 1 DAY Resulted 08/13/17 20:42 Urine Catheterized Urine Urine Culture - Preliminary NO GROWTH IN 24 HOURS. Resulted Lorraine Ellis MD Aug 15, 2017 08:38
--- NOTE | 2017-08-15 09:44 | PD.CARD.PN ---
Subjective Subjective Remarks No chest pain. Awake and alert. Confused as to date Objective Medications Current Medications Medications (Trade) Dose Ordered Sig/Zander Route Start Time Stop Time Status Last Admin (NS Flush) 2 ml UNSCH PRN IV FLUSH 08/13/17 22:45 (NS Flush) 2 ml BID IV FLUSH 08/14/17 09:00 08/15/17 07:59 (Narcan Inj) 0.4 mg UNSCH PRN IV PUSH 08/13/17 22:45 Heparin Sodium/ Dextrose 250 ml @ 8 mls/hr TITRATE PRN IV 08/13/17 23:00 08/15/17 03:28 (Heparin Inj) 5,000 units UNSCH PRN IV PUSH 08/13/17 23:00 (Heparin Inj) 2,500 units UNSCH PRN IV PUSH 08/13/17 23:00 08/15/17 03:53 Ceftriaxone Sodium 1000 mg/ Sodium Chloride 100 ml @ 200 mls/hr Q24H IV 08/13/17 23:45 08/14/17 23:19 Levetriacetam 500 mg/Sodium Chloride 105 ml @ 420 mls/hr Q12HR IV 08/14/17 09:00 08/15/17 07:59 (Ecotrin Ec) 81 mg DAILY PO 08/15/17 09:00 08/15/17 07:59 (Tylenol) 650 mg Q4H PRN PO 08/14/17 12:45 08/15/17 03:36 (Zofran Inj) 4 mg Q6H PRN IV PUSH 08/14/17 12:45 (Tums Chew) 1,000 mg TID PRN CHEW 08/14/17 12:45 Vital Signs / I&O Vital Signs Date Time Temp Pulse Resp B/P (MAP) Pulse Ox O2 Delivery O2 Flow Rate FiO2 08/15/17 08:01 98.3 76 19 116/64 (81) 95 08/15/17 04:00 98.9 74 20 121/63 (82) 95 08/15/17 01:00 97.0 87 20 134/81 (98) 97 08/15/17 00:00 98 08/14/17 20:00 98 08/14/17 20:00 98.4 100 18 138/82 (100) 96 08/14/17 16:00 98.0 90 16 110/67 (81) 94 08/14/17 12:00 98.3 92 16 134/72 (92) 96 08/14/17 11:00 95 I/O 08/14/17 08/14/17 08/14/17 08/15/17 08/15/17 08/15/17 07:00 15:00 23:00 07:00 15:00 23:00 Intake Total 159 ml 105 ml 225 ml 244 ml Output Total 550 ml Balance 159 ml -445 ml 225 ml 244 ml Intake IV Total 159 ml 105 ml 225 ml 244 ml Output Urine Total 550 ml # Voids 2 Physical Exam Lungs clear RRR no murmur Laboratory Laboratory Tests Test 08/14/17 12:23 08/14/17 12:25 08/14/17 20:15 08/15/17 02:52 Total Creatine Kinase 2641 U/L Creatine Kinase MB 2.3 NG/ML Creatine Kinase MB % 0.1 % Troponin I 0.72 NG/ML Activated Partial Thromboplast Time 27.8 SEC 32.2 SEC 36.4 SEC White Blood Count 16.6 TH/MM3 Red Blood Count 3.34 MIL/MM3 Hemoglobin 10.4 GM/DL Hematocrit 31.3 % Mean Corpuscular Volume 93.9 FL Mean Corpuscular Hemoglobin 31.2 PG Mean Corpuscular Hemoglobin Concent 33.2 % Red Cell Distribution Width 15.1 % Platelet Count 265 TH/MM3 Mean Platelet Volume 7.4 FL Neutrophils (%) (Auto) 75.1 % Lymphocytes (%) (Auto) 15.1 % Monocytes (%) (Auto) 8.0 % Eosinophils (%) (Auto) 1.2 % Basophils (%) (Auto) 0.6 % Neutrophils # (Auto) 12.4 TH/MM3 Lymphocytes # (Auto) 2.5 TH/MM3 Monocytes # (Auto) 1.3 TH/MM3 Eosinophils # (Auto) 0.2 TH/MM3 Basophils # (Auto) 0.1 TH/MM3 CBC Comment DIFF FINAL Differential Comment Triglycerides Level 93 MG/DL Cholesterol Level 143 MG/DL LDL Cholesterol 67 MG/DL HDL Cholesterol 57.1 MG/DL Cholesterol/HDL Ratio 2.50 RATIO Assessment and Plan Problem List: (1) Non-STEMI (non-ST elevated myocardial infarction) ICD Codes: I21.4 - Non-ST elevation (NSTEMI) myocardial infarction Status: Acute Plan: Dr. Dyson has planned cath for tomorrow. Will premedicate with prednisone tonight and tomorrow AM Sam Figueroa MD Aug 15, 2017 09:44
--- NOTE | 2017-08-15 13:04 | HHI.PR ---
Subjective Remarks awake and alert feeling better moving joints better awake and alert History of RA- on Methotrexate and Remicaide History of sounds like Interstitial lung disease from RA vs suspected Pulmonary fibrosis- work up in progress by Dr. Macias- per family was supposed to go for a test tomorrow- unusre what it is Objective Vitals Vital Signs Date Time Temp Pulse Resp B/P (MAP) Pulse Ox O2 Delivery O2 Flow Rate FiO2 08/15/17 11:56 97.9 100 20 122/69 (86) 96 08/15/17 10:11 77 08/15/17 08:01 98.3 76 19 116/64 (81) 95 08/15/17 04:00 98.9 74 20 121/63 (82) 95 08/15/17 01:00 97.0 87 20 134/81 (98) 97 08/15/17 00:00 98 08/14/17 20:00 98 08/14/17 20:00 98.4 100 18 138/82 (100) 96 08/14/17 16:00 98.0 90 16 110/67 (81) 94 I/O 08/14/17 08/14/17 08/14/17 08/15/17 08/15/17 08/15/17 07:00 15:00 23:00 07:00 15:00 23:00 Intake Total 159 ml 105 ml 225 ml 244 ml 105 ml Output Total 550 ml Balance 159 ml -445 ml 225 ml 244 ml 105 ml Intake IV Total 159 ml 105 ml 225 ml 244 ml 105 ml Output Urine Total 550 ml # Voids 2 Result Diagram: 08/15/17 0252 08/14/17 0741 Imaging Last Impressions Head CT 08/13/171915 Signed Impressions: Service Date/Time: Sunday, August 13, 2017 19:36 - CONCLUSION: Normal examination for a patient of this age. Delbert Neumann MD Chest X-Ray 08/13/171915 Signed Impressions: Service Date/Time: Sunday, August 13, 2017 19:45 - CONCLUSION: Scattered infiltrates in both lung bases suggestive of atelectasis. Delbert Neumann MD Objective Remarks awake and alert oral cavity- dry sores- tongue no rales regular rhythm abdomen soft extremities no edema A/P Problem List: (1) Non-STEMI (non-ST elevated myocardial infarction) ICD Code: I21.4 - Non-ST elevation (NSTEMI) myocardial infarction Status: Acute (2) Seizure ICD Code: R56.9 - Unspecified convulsions Status: Acute Assessment and Plan 67-year-old female with Non-ST elevation NC Appreciate input from cardiology plan for cath tomorrow Continue heparin drip, ASA 2D echo pending Seizure disorder Head CT noted and reviewed by me without any intracranial abnormality Check EEG Neurology ff Currently on Keppra IV Seizure precaution ? Interstitial lung disease Recent Flu as OP consult Dr. Tono Macias- known to him- work up in progress History of RA on Remicaide and Mtx as OP- was recently held due to Flu Leukocytosis- ? ff CBC- patient states she is not on any chornic steroids for RA DVT prophylaxis: Bilateral SCDs Stewart Marx MD Aug 15, 2017 13:04
[2017-08-15] MEDS: ACETAMINOPHEN/HYDROcodone 325 MG/5 MG TAB PO PRN ×2 (14:47→22:13)
[2017-08-15] MEDS: NYSTATIN SUSP 500,000 U/5 ML CUP SWISH-SWAL SCH ×2 (17:02→21:42)
--- NOTE | 2017-08-15 19:33 | ECHRPT ---
Indication: CONCLUSIONS The left ventricular systolic function is normal with an estimated ejection fraction in the range of 60-65%. Doppler parameters are consistent with impaired left ventricular relaxtion (grade 1 diastolic dysfun ction). There is mild tricuspid valve regurgitation. Trivial pulmonary valve regurgitation. BP: 134 / 72 HR: 92 Rhythm: Sinus MEASUREMENTS (Male / Female) Normal Values Technical Quality:Good 2D ECHO LV Diastolic Diameter PLAX 4.3 cm 4.2 - 5.9 / 3.9 - 5.3 cm LV Systolic Diameter PLAX 2.9 cm IVS Diastolic Thickness 1.1 cm 0.6 - 1.0 / 0.6 - 0.9 cm LVPW Diastolic Thickness 0.8 cm 0.6 - 1.0 / 0.6 - 0.9 cm LV Relative Wall Thickness 0.4 RV Internal Dim ED PLAX 2.1 cm LA Systolic Diameter LX 3.5 cm 3.0 - 4.0 / 2.7 - 3.8 cm M-MODE Aortic Root Diameter MM 3.5 cm AV Cusp Separation MM 1.8 cm DOPPLER Mitral E Point Velocity 56.5 cm/s Mitral A Point Velocity 84.5 cm/s Mitral E to A Ratio 0.7 TR Peak Velocity 331.0 cm/s TR Peak Gradient 43.8 mmHg FINDINGS LEFT VENTRICLE The left ventricular systolic function is normal with an estimated ejection fraction in the range of 60-65%. Normal left ventricular size. Wall thickness is normal. No regional wall motion abnormalities are present. Doppler parameters are consistent with impaired left ventricular relaxtion (grade 1 diastolic dysfun ction). RIGHT VENTRICLE Normal right ventricular size and systolic function. LEFT ATRIUM The left atrial size is normal. RIGHT ATRIUM The right atrial size is normal. ATRIAL SEPTUM Normal atrial septal thickness without atrial level shunting by limited color doppler interrogation. AORTA The aortic root and proximal ascending aorta are normal in size on limited imaging. MITRAL VALVE Structurally normal mitral valve. No mitral valve stenosis or regurgitation. AORTIC VALVE Trileaflet aortic valve. Aortic valve sclerosis is present. No aortic valve stenosis. TRICUSPID VALVE Structurally normal tricuspid valve. There is mild tricuspid valve regurgitation. The estimated pulmonary arterial pressure is 54 mmHg. PULMONARY VALVE Trivial pulmonary valve regurgitation. VESSELS The inferior vena cava is normal in size. PERICARDIUM No pericardial effusion. Kurt Hirsch DO (Electronically Signed) Final Date:15 August 2017 19:32
[2017-08-15] MEDS ORDERED: predniSONE 50 MG TAB PO ONE (20:00)
[2017-08-16 00:44] VITALS: BP 128/64; PULSE 79; RESP 18; TEMP 98.3; O2SAT 93
[2017-08-16] MEDS: cefTRIAXone INJ 1,000 MG in SODIUM CHLORIDE 0.9% INJ 100 ML IV SCH (02:03)
[2017-08-16] MEDS: HEPARIN-D5W 25,000 U/250 ML 250 ML IV PRN (02:05)
[2017-08-16 04:56] VITALS: BP 135/70; PULSE 76; RESP 18; TEMP 98; O2SAT 93
[2017-08-16] MEDS ORDERED: predniSONE 50 MG TAB PO ONE (06:00)
[2017-08-16] MEDS: ACETAMINOPHEN/HYDROcodone 325 MG/5 MG TAB PO PRN ×3 (06:07→17:55)
[2017-08-16 08:12] VITALS: PULSE 77
[2017-08-16] MEDS: SODIUM CHLORIDE 0.9% FLUSH 10 ML FLUSH IV FLUSH SCH (08:15)
[2017-08-16] MEDS: ASPIRIN EC 81 MG TABEC PO SCH (08:15)
[2017-08-16] MEDS: NYSTATIN SUSP 500,000 U/5 ML CUP SWISH-SWAL SCH ×3 (08:15→17:55)
--- NOTE | 2017-08-16 08:15 | PD.CARD.PN ---
Subjective Subjective Remarks denies chest pain or sob, resting comfortably (Radha Russo) Objective Medications Current Medications Medications (Trade) Dose Ordered Sig/Zander Route Start Time Stop Time Status Last Admin (NS Flush) 2 ml UNSCH PRN IV FLUSH 08/13/17 22:45 (NS Flush) 2 ml BID IV FLUSH 08/14/17 09:00 08/15/17 21:00 (Narcan Inj) 0.4 mg UNSCH PRN IV PUSH 08/13/17 22:45 Heparin Sodium/ Dextrose 250 ml @ 8 mls/hr TITRATE PRN IV 08/13/17 23:00 08/16/17 02:05 (Heparin Inj) 5,000 units UNSCH PRN IV PUSH 08/13/17 23:00 (Heparin Inj) 2,500 units UNSCH PRN IV PUSH 08/13/17 23:00 08/15/17 03:53 Ceftriaxone Sodium 1000 mg/ Sodium Chloride 100 ml @ 200 mls/hr Q24H IV 08/13/17 23:45 08/16/17 02:03 Levetriacetam 500 mg/Sodium Chloride 105 ml @ 420 mls/hr Q12HR IV 08/14/17 09:00 08/15/17 21:35 (Ecotrin Ec) 81 mg DAILY PO 08/15/17 09:00 08/15/17 07:59 (Tylenol) 650 mg Q4H PRN PO 08/14/17 12:45 08/15/17 03:36 (Zofran Inj) 4 mg Q6H PRN IV PUSH 08/14/17 12:45 (Tums Chew) 1,000 mg TID PRN CHEW 08/14/17 12:45 ([place] 5-325 Mg) 1 tab Q4H PRN PO 08/15/17 14:45 08/16/17 06:07 (Protonix) 40 mg DAILY PO 08/16/17 09:00 (Mycostatin Liq) 5 ml QID SWISH-SWAL 08/15/17 18:00 08/15/17 21:42 Vital Signs / I&O Vital Signs Date Time Temp Pulse Resp B/P (MAP) Pulse Ox O2 Delivery O2 Flow Rate FiO2 08/16/17 04:56 98.0 76 18 135/70 (91) 93 08/16/17 00:44 98.3 79 18 128/64 (85) 93 08/15/17 20:48 98.0 94 18 137/76 (96) 94 08/15/17 15:39 97.3 98 20 131/64 (86) 95 08/15/17 12:00 96 08/15/17 11:56 97.9 100 20 122/69 (86) 96 08/15/17 10:11 77 I/O 08/15/17 08/15/17 08/15/17 08/16/17 08/16/17 08/16/17 07:00 15:00 23:00 07:00 15:00 23:00 Intake Total 244 ml 105 ml 600 ml 100 ml Balance 244 ml 105 ml 600 ml 100 ml Intake Oral 600 ml IV Total 244 ml 105 ml 100 ml # Voids 2 2 2 # Bowel Movements 1 Physical Exam GENERAL: SKIN: Warm and dry. HEAD: Atraumatic. Normocephalic. EYES: Pupils equal and round. No scleral icterus. No injection or drainage. ENT: No nasal bleeding or discharge. Mucous membranes pink and moist. NECK: Trachea midline. No JVD. CARDIOVASCULAR: Regular rate and rhythm. no murmurs RESPIRATORY: No accessory muscle use. Clear to auscultation. Breath sounds equal bilaterally. GASTROINTESTINAL: Abdomen soft, non-tender, nondistended. Hepatic and splenic margins not palpable. MUSCULOSKELETAL: Extremities without clubbing, cyanosis, or edema. No obvious deformities. NEUROLOGICAL: Awake and alert. No obvious cranial nerve deficits. Normal speech. PSYCHIATRIC: Appropriate mood and affect; insight and judgment normal. Laboratory Laboratory Tests Test 08/15/17 11:36 08/15/17 20:53 08/16/17 03:49 Activated Partial Thromboplast Time 39.0 SEC 38.5 SEC 44.0 SEC (Radha Russo) Assessment and Plan Problem List: (1) Non-STEMI (non-ST elevated myocardial infarction) ICD Codes: I21.4 - Non-ST elevation (NSTEMI) myocardial infarction Status: Acute Assessment and Plan 67 yo WF with history of seizure disorder admitted for altered mental status and apparently had a witnessed seizure by medics. Troponin levels continues to increase with ECG abnormal EKG. echo shows normal EF. leukocytosis improving NSTEMI- plan for [facility] this morning. . (Radha Russo) Assessment and Plan C - mild-mod nonobstructive CAD. med mgt normal ef demand mediated NSTEMI asa statin OK for DC from cardio standpoint call with questions will sign off (Saturnino Dyson MD) Radha Russo Aug 16, 2017 08:15 Saturnino Dyson MD Aug 16, 2017 10:26
[2017-08-16] MEDS: levETIRAcetam INJ 500 MG in SODIUM CHLORIDE 0.9% INJ 100 ML IV SCH (08:16)
[2017-08-16 08:19] VITALS: BP 137/72; PULSE 83; RESP 18; TEMP 98.1; O2SAT 96
[2017-08-16] MEDS ORDERED: PANTOPRAZOLE SOD 40 MG DELAYED RELEASE TAB PO SCH (09:00)
--- NOTE | 2017-08-16 09:40 | MB ---
cc: Brynn SANTIAGO M.D. DATE OF CONSULTATION: 08/16/2017 HISTORY OF PRESENT ILLNESS Ms. Pierre is a 66-year-old white female with a history of pulmonary fibrosis. I have followed her on several occasions since 2014 and recent follow-up revealed no progression in disease by CT scan but her pulmonary functions were diminishing. It is complicated by the fact that she has been on methotrexate, has underlying rheumatoid arthritis and the precise etiology of the fibrosis is not clear. She actually had an appointment to be seen in the [facility] at [facility] in [place] today but she was admitted with seizures and possible coronary ischemia. I saw her this morning, she is awake, alert, comfortable. She is having no respiratory difficulty and her chest x-ray is really unchanged. Seizures have been controlled. She has been seen by neurology. She has had seizures for years but not one recently. There is also a question of whether or not she had a non ST-segment myocardial event, so she is being catheterized today. I spoke to Dr. Marx, the hospitalist, there really is no further intervention necessary with her lung at this point. We called and notified the [facility], she will not be able to make the appointment today and we can reschedule that when she is stable and discharged from the hospital. I will not see her routinely here in the hospital but if I can be of any further assistance during this hospitalization, please reconsult me. RMD ALEJANDRA Ojeda/JOCE /9:02 AM /9:24 AM
[2017-08-16] MEDS ORDERED: NITROGLYCERIN INJ 5 ML ONE (09:45)
[2017-08-16] MEDS ORDERED: MIDAZOLAM HCL 2 MG/2 ML VIAL ONE (09:45)
[2017-08-16] MEDS ORDERED: HEPARIN SODIUM - IV 10,000 UNITS/10 ML VIAL ONE (09:45)
[2017-08-16] MEDS ORDERED: MISC INFORMATION XX ONE (10:30)
--- NOTE | 2017-08-16 10:32 | CATHPROC ---
[facility] HIS Report Study Information Study Number Admission Scheduled Start Study Start [id number] Aug 13 2017 9:31PM 08/16/2017 Aug 16 2017 9:45AM [place] Service Cardiac Catheterization Admit Source Facility Department Other [facility] Physician and Clinical Staff Initial Saturnino Sal Commander Internal Affairs Tory Mari,RN Other cathlab, cathlab Recorder Muna Cho,RT(R) Scrub Ray Rodriguez RCIS(BS) Procedures Performed Procedure Location (Site) Vessel Name Coronary Angiograms LCA Left Coronary Coronary Angiograms RCA Right Coronary L Heart Cath Wire insertion Radial (right) Radial Art. Equipment Time Make Up Girl Description Size Mfg Part Number Used/Scraped TRANSDUCER, TRUWAVE [id number] 09:52 PENA ANGLIN * Used W/STOCKCOCK *[id number] *[id number] *[id number] 09:52 [employer] PACK, CCL CUSTOM * Used *[id number] 09:52 [employer] SUPPORT, ARTERIAL ADULT 14404 *[id number] Used [id number] 09:52 [employer] PACER PEN, SKIN DUAL W/ RULER * Used *[id number] BAND, RADIAL COMPRESSION TR [id number] 10:23 [employer] MEDICAL 24CM Used SHORT 24 *[id number] SHEATH, FR6 RADIAL PRELUDE 09:52 [employer] FR 6 [id number] Used EASE 11CM [id number] 09:52 [employer] WIRE, EXCHANGE 260CM 3MMJ 260CM Used *[id number] 09:46 [employer] OMNIPAQUE, 350 MG, 150ML 150ML [id number] Used 09:52 [employer] OMNIPAQUE, 350 MG, 150ML 150ML [id number] Used [id number] 09:52 [place] [employer] BLANKET,WARM AIR CCL * Used *[id number] History: Current Medications Medication Dosage/Unit Route Frequency Last Date/Time Taken ASA HEPARIN History: Allergies Allergy Reaction iohexol SEVERE HIVES diatrizoate meglumine SEVERE HIVES gadoteridol SEVERE HIVES gadodiamide SEVERE HIVES iodixanol SEVERE HIVES risedronate sodium SEVERE CHILLS gadobenic acid SEVERE HIVES tree nut MOUTH SWELLING; RESP PROBLEMS bertholletia excelsa MOUTH SWELLING; RESP PROBLEMS walnut MOUTH SWELLING; DIFFICULT RESP. History: Risk Factors Family History of Hypertension Dyslipidemia Previous NV Previous Heart Failure Premature CAD No No Yes No No Prior Valve Prior PCI Prior CABG Surgery No No No Cerebrovascular Peripheral Artery Chronic Lung On Dialysis Diabetes Disease Disease Disease No No No Yes No History: Symptoms/Diagnosis Selection Items SOB History: Stress Tests Stress or Imaging Studies Performed No History: Other Current Smoker Method Quit No Cigarettes 13 Years Ago Labs Hgb (g/dl) Hct (%) WBC (l/cumm) Platelets (thousands) 11.60-17.00 35.00-51.00 4.00-11.00 150.00-450.00 10.4 31.3 16.6 265 Glucose (mg/dl) BUN (mg/dl) Creatinine (mg/dl) BUN:Creatinine (1:x) 74.00-106.00 7.00-18.00 0.50-1.30 10.00-20.00 91 26 0.9 28.9 Na (meq/l) K (meq/l) 136.00-145.00 3.50-5.10 137 3.6 INR (PTT:PT) 0.90-1.10 1.1 Troponin I (ng/ml) CPK (u/l) CPK-MB (ng/ML) 0.02-0.05 26.00-308.00 0.50-3.60 0.72 2641 2.3 Medication Medication Total Dose (Bolus/Oral) Medication Total Dosage/Unit 1% XYLOCAINE 20 mL FENTANYL 50 mcg HEPARIN 3000 units OXYGEN 2 l/min RADIAL COCKTAIL 5 mL (Bolus) VERSED 2 mg Medications (Bolus/Oral) Medication Time Given Dosage/Unit Administered By Reason OXYGEN 08/16/2017 9:58:40 AM 2 l/min Tory Mari 2 l/min OXYGEN given in lab by Tory Mari, WILLY via Nasal. VERSED 08/16/2017 10:11:50 AM 2 mg Tory Mari 2 mg VERSED given in lab by Tory Mari, WILLY via Peripheral IV. FENTANYL 08/16/2017 10:12:58 AM 50 mcg Tory Mari 50 mcg FENTANYL given in lab by Tory Mari, WILLY via Peripheral IV. 1% XYLOCAINE 08/16/2017 10:15:27 AM 20 mL Saturnino Dyson 20 mL 1% XYLOCAINE given in lab by Saturnino Dyson in Right Radial via Subcutaneous. HEPARIN 08/16/2017 10:16:45 AM 3000 units Tory Mari 3000 units HEPARIN given in lab by Tory Mari, WILLY via Peripheral IV. RADIAL COCKTAIL 08/16/2017 10:16:50 AM 5 mL (Bolus) Tory Mari 5 mL (Bolus) RADIAL COCKTAIL given in lab by Tory Mari, WILLY via Radial. Using [Solution Name]. 1 000 nitro Medication (Drip) Medication Time Given Dosage/Unit Concentration/Unit Diluent (ml) Solutio n IV Solutions 08/16/2017 9:47:03 AM 0 mL (IV) 500 NaCl .9 Patient arrived on IV Solutions in Right Antecubital via Peripheral IV. Pump/Drip Flow = 20 ml/hr usi ng NaCl .9. Initial Case Assessment Cardiovascular HR Rhythm NIBP Chest Pain 87 REG 163/91 0 Edema Present Skin color Skin None Normal Warm Circulatory - Right Pulses Dorsalis Pedis Femoral 1 2 Scale (0,1,2,3,4,d) Circulatory - Left Pulses Dorsalis Pedis Femoral 1 2 Scale (0,1,2,3,4,d) Circulatory - Lower Extremities Color Lower Right Color Lower Left Normal Normal Neurological State Oriented to time-place- Alert Moves all extremities person Respiration - General Respiration Rate SpO2 (%) (B/min) 22 96 Final Case Assessment Cardiovascular HR Rhythm NIBP Chest Pain 85 reg 134/72 0 Edema Present Skin color Skin None Normal Warm Circulatory - Right Pulses Dorsalis Pedis Femoral 1 2 Scale (0,1,2,3,4,d) Circulatory - Left Pulses Dorsalis Pedis Femoral 1 2 Scale (0,1,2,3,4,d) Circulatory - Lower Extremities Color Lower Right Color Lower Left Normal Normal Neurological State Oriented to time-place- Alert Moves all extremities person Respiration - General Respiration Rate SpO2 (%) O2 (lpm) (B/min) 12 95 2 Chronological Log Time Study Chronological Log 9:44:38 Patient arrived via Bed. 9:44:39 Patient Name, D.O.B, / Armband Verified By R.N. 9:44:40 Consent signed by the physician and the patient and verified by the [facility] staff. 9:44:41 Pre-op and post- op instructions given; patient acknowledges understanding of instructions. 9:44:42 Verbal Stimulation=2 Physical Stimulation=2 Airway=2 Respiration=2 TOTAL=8. (0=absent, 1=li mited, 2=present) 9:46:48 Patient has been NPO for More than 6Hrs. 9:46:51 Allens test performed on the right radial and ulnar artery. 9:46:57 Skin Breakdown-NONE 9:46:59 Louie Prominences Protected 9:47:02 A # 20 IV was noted in the Antecubital (right). Grade = 0 9:47:03 Patient arrived on IV Solutions in Right Antecubital via Peripheral IV. Pump/Drip Flow = 20 ml/hr using NaCl .9. 9:47:04 History and physical on the chart or being dictated. 9:47:32 A # 20 IV was noted in the Antecubital (left). Grade = 0 Vitals capture started with the following parameters, Patient=Adult, Interval=5 min, Initial Pr vamtlz=390 mmHg, 9:48:00 Deflation Rate=5 mmHg, Cuff placed on Left Arm 9:49:10 HR=92 bpm, RFZQ=356/91 mmhg, SpO2=95.0 %, Resp=20 B/min, Pain=0, Christa=10, Molina=2 9:50:08 Reference ECG taken Assessment: Initial Case, HR=87 BPM, Rhythm=REG, ZVRY=337/91 mmhg, Chest Pain=0, Edema=None, Color=Normal, Skin = Warm Right Pulses: Madi Ped=1, Femoral=2 Left Pulses: Madi Ped=1, Femoral=2 9:51:05 Lower Right Extremities: Color=Normal Lower Left Extremities: Color=Normal Neurological: State=Alert, Ox3, DONG Respiration: Resp=22 B/min, SpO2=96 % 9:51:35 Bilateral groins prepped with 2% chlorhexidine, and draped after a 3 minute waiting time. 9:51:39 MD paged 9:53:39 HR=91 bpm, AXWA=448/84 mmhg, SpO2=95.0 %, Resp=20 B/min, Pain=0, Christa=10, Molina=2 9:56:50 Pressure channel 1 zeroed. 9:58:36 HR=86 bpm, JJHG=073/79 mmhg, SpO2=93.0 %, Resp=18 B/min, Pain=0, Christa=10, Molina=2 9:58:40 2 l/min OXYGEN given in lab by Tory Mari RN via Nasal. 10:03:35 HR=79 bpm, PNRM=130/87 mmhg, SpO2=96.0 %, Resp=17 B/min, Pain=0, Christa=10, Molina=2 10:08:32 HR=86 bpm, IDMF=887/93 mmhg, SpO2=96 %, Resp=18 B/min, Pain=0, Christa=10, Molina=2 10:11:30 MD arrived. 10:11:50 2 mg VERSED given in lab by Tory Mari RN via Peripheral IV. 10:12:58 50 mcg FENTANYL given in lab by Tory Mari RN via Peripheral IV. 10:13:35 HR=84 bpm, DBJG=189/79 mmhg, SpO2=94.0 %, Resp=15 B/min, Pain=0, Christa=10, Molina=2 Time Out. Correct patient, correct procedure, correct physician, power injector not loaded with contrast with surgical 10:14:37 team present. Time Out Concurred by MD and individual staff in procedure. 10:14:48 Case Start 10:14:52 pt premedicated for iodine allergy with multiple doses of prednisone 10:15:27 20 mL 1% XYLOCAINE given in lab by Saturnino Dyson in Right Radial via Subcutaneous. 10:16:04 Access site was Radial [email or web address].rt 10:16:10 A wire was inserted via Radial (right). 10:16:45 3000 units HEPARIN given in lab by Tory Mari RN via Peripheral IV. 10:16:50 5 mL (Bolus) RADIAL COCKTAIL given in lab by Tory Mari RN via Radial. Using [Solutio n Name]. 1000 nitro Recorded Pressure: LV, HR=86, Condition=Condition 1 10:18:11 (Left Ventricle) LV 130/4/9 Recorded Pressure: LV, Ao, HR=86, Condition=Condition 1 10:18:21 (Left Ventricle) LV 133/8/10, (Aorta) Ao 129/71/96 10:18:32 HR=84 bpm, MUHW=918/85 mmhg, SpO2=90.0 %, Resp=17 B/min, Pain=0, Christa=10, Molina=2 Recorded Pressure: Ao, HR=86, Condition=Condition 1 10:18:45 (Aorta) Ao 126/70/96 10:19:11 The RCA was injected and visualized at various angles. OMNIPAQUE, 350 MG, 150ML 150ML used . After removing the current catheter a JL 3.5 INFINITI CATHETER FR 5 was advanced over a WIRE, E XCHANGE 260CM 10:20:02 3MMJ 260CM. 10:21:15 The LCA was injected and visualized at various angles. OMNIPAQUE, 350 MG, 150ML 150ML used . 10:22:59 Catheter was removed 10:23:01 Case End 10:23:03 Sterile dressing applied to site 10:23:04 No case complications noted. 10:23:04 Cine recording checked. 10:23:06 Bedside Report will be given. 10:23:10 Contrast Scanned 10:23:14 A Left Heart Cath was performed. 10:23:[facility] Clinical correlaton risk stratification. 10:23:37 HR=82 bpm, WGUP=378/72 mmhg, SpO2=89.0 %, Resp=17 B/min, Pain=0, Christa=10, Molina=2 Assessment: Final Case, HR=85 BPM, Rhythm=reg, KVEB=551/72 mmhg, Chest Pain=0, Edema=None, Col or=Normal, Skin = Warm Right Pulses: Madi Ped=1, Femoral=2 Left Pulses: Madi Ped=1, Femoral=2 10:23:47 Lower Right Extremities: Color=Normal Lower Left Extremities: Color=Normal Neurological: State=Alert, Ox3, DONG Respiration: Resp=12 B/min, SpO2=95 %, O2=2 lpm 10:28:36 UCGV=522/80 mmhg, SpO2=97.0 %, Pain=0, Christa=10, Molina=2 10:28:55 Vitals capture stopped. End Study - Contrast Media Used In Study Contrast Total Opened (mL) Total Used (mL) Total Wasted (mL) Omnipaque 25 25 0 End Study - Maximum Contrast Load Max Contrast Load (mL) 381.1 End Study - Radiation Exposure Fluoro Time (minutes) 1.8 End Study - Sheaths Sheaths Pulled By Sheath Hold Time (min) Ray Rodriguez End Study - Patient Disposition Complications Transferred To No [facility]
--- NOTE | 2017-08-16 11:06 | MA ---
cc: BRYAN LOGAN MD DATE: 08/16/2017 INDICATION [id number] myocardial infarction. PROCEDURE PERFORMED 1. Fluoroscopy with interpretation. 2. Coronary angiography. 3. Left heart catheterization. METHOD The risks, benefits and alternatives were discussed with the patient. The patient understood and consented to the procedure. The patient was brought into the catheterization lab and placed on the catheterization table. Right wrist was prepped and draped in sterile fashion. Right wrist was anesthetized with 2% lidocaine. Right radial artery was cannulated and a 6-Amharic 7 cm sheath was placed without difficulty. LEFT HEART CATHETERIZATION Intraventricular hemodynamics is 133/8 mmHg. CORONARY ANGIOGRAPHY 1. Left main coronary is long but angiographically normal. 2. Left anterior descending coronary has moderate calcium present in the mid segment with 30-40% stenosis. There is a steep angulated takeoff of a diagonal branch with a 50% ostial stenosis, small to moderate caliber size. Remainder of left anterior descending coronary has minor luminal irregularities. 3. Left circumflex gives rise to a small obtuse marginal branch, angiographically normal. 4. Right coronary is a dominant vessel giving rise to a posterior descending branch. Mid-right coronary has 30% stenosis present. CONCLUSION 1. Mild to moderate nonobstructive branch vessel coronary artery disease. 2. Normal left-sided filling pressure. PLAN The patient's elevated troponin is demand mediated. There is no fixed severe obstructive coronary disease requiring intervention. Will continue with medical management. The patient's echocardiogram shows normal left ventricular systolic function. Okay for discharge from a cardiovascular perspective. Call with any further questions. MD THIEN Ramos/TLL /10:27 AM /10:34 AM
[2017-08-16] MEDS ORDERED: IOHEXOL 350 MG/ML 50 ML BTL (for Cath Lab) OTHER ONE (12:37)
--- NOTE | 2017-08-16 13:46 | HHI.PR ---
Subjective Remarks back from cath- no complains po 100% no headaches Objective Vitals Vital Signs Date Time Temp Pulse Resp B/P (MAP) Pulse Ox O2 Delivery O2 Flow Rate FiO2 08/16/17 10:44 92 Room Air 08/16/17 08:19 98.1 83 18 137/72 (93) 96 08/16/17 08:12 77 08/16/17 08:11 16 08/16/17 04:56 98.0 76 18 135/70 (91) 93 08/16/17 00:44 98.3 79 18 128/64 (85) 93 08/15/17 20:48 98.0 94 18 137/76 (96) 94 08/15/17 15:39 97.3 98 20 131/64 (86) 95 I/O 08/15/17 08/15/17 08/15/17 08/16/17 08/16/17 08/16/17 07:00 15:00 23:00 07:00 15:00 23:00 Intake Total 244 ml 105 ml 600 ml 100 ml Balance 244 ml 105 ml 600 ml 100 ml Intake Oral 600 ml IV Total 244 ml 105 ml 100 ml # Voids 2 2 2 # Bowel Movements 1 Result Diagram: 08/15/17 0252 08/14/17 0741 Imaging Last Impressions Head CT 08/13/171915 Signed Impressions: Service Date/Time: Sunday, August 13, 2017 19:36 - CONCLUSION: Normal examination for a patient of this age. Delbert Neumann MD Chest X-Ray 08/13/171915 Signed Impressions: Service Date/Time: Sunday, August 13, 2017 19:45 - CONCLUSION: Scattered infiltrates in both lung bases suggestive of atelectasis. Delbert Neumann MD Objective Remarks awake and alert oral cavity- dry sores- tongue no rales regular rhythm abdomen soft extremities no edema, no calf tenderness wrist- cath site- no hematoma Procedures 08/16- cardiac cath- non obstructive CAD A/P Problem List: (1) Non-STEMI (non-ST elevated myocardial infarction) ICD Code: I21.4 - Non-ST elevation (NSTEMI) myocardial infarction Status: Acute (2) Seizure ICD Code: R56.9 - Unspecified convulsions Status: Acute Assessment and Plan 67-year-old female with Non-ST elevation PA- no significant CAD on cath- ASA echo- good EF Seizure disorder Head CT noted and review-without any intracranial abnormality Neurology ff Currently on Keppra IV - change to po Seizure precaution OP ff up with Dr. Sultana Interstitial lung disease Recent Flu as OP d/w Dr. Macias - OP referral to [facility] History of RA on Remicaide and Mtx as OP- was recently held due to Flu Leukocytosis- on empiric rocephin- change to po levaquin on DC rhabdomyolysis- from SZ advised - encourage po fluids DVT prophylaxis: Bilateral SCDs DC home planning Stewart Marx MD Aug 16, 2017 13:46
[2017-08-16 14:33] VITALS: RESP 16
[2017-08-16] MEDS ORDERED: Nystatin Liq SWISH-SWAL (14:51)
[2017-08-16] MEDS ORDERED: LEVA500T33 PO (14:52)
--- NOTE | 2017-08-16 14:56 | HHI.DS ---
Discharge Summary Admission Date Aug 13, 2017 at 21:31 Discharge Date: Aug 16, 2017 Admitting Diagnosis Seizure, CVATIA, Non-STEMI (1) Non-STEMI (non-ST elevated myocardial infarction) ICD Code: I21.4 - Non-ST elevation (NSTEMI) myocardial infarction Diagnosis: Principal Status: Acute (2) Seizure ICD Code: R56.9 - Unspecified convulsions Diagnosis: Principal Status: Acute (3) ILD (interstitial lung disease) ICD Code: J84.9 - Interstitial pulmonary disease, unspecified Diagnosis: Secondary Status: Chronic Procedures 08/16- cardiac cath- non obstructive CAD Brief History - From Admission 67-year-old female with a past medical history significant for seizure disorder was brought to the emergency department for evaluation of altered mental status. The patient was being evaluated in the emergency department when she was noted to have a generalized clonic tonic seizure lasting approximately 30 seconds. She was started on Keppra and given Ativan. At the time of her interview, the patient arouses only to sternal rub and does not answer questions. CBC/BMP: 08/15/17 0252 08/14/17 0741 Significant Findings Laboratory Tests Test 08/13/17 19:25 08/13/17 19:48 08/13/17 20:42 08/13/17 21:05 White Blood Count 21.4 TH/MM3 (4.0-11.0) Red Blood Count 3.78 MIL/MM3 (4.00-5.30) Neutrophils (%) (Auto) 83.4 % (16.0-70.0) Lymphocytes (%) (Auto) 7.8 % (9.0-44.0) Monocytes (%) (Auto) 8.6 % (0.0-8.0) Neutrophils # (Auto) 17.8 TH/MM3 (1.8-7.7) Monocytes # (Auto) 1.8 TH/MM3 (0-0.9) Activated Partial Thromboplast Time 23.8 SEC (24.3-30.1) Blood Urea Nitrogen 28 MG/DL (7-18) Creatinine 1.20 MG/DL (0.50-1.00) Total Protein 8.5 GM/DL (6.4-8.2) Aspartate Amino Transf (AST/SGOT) 112 U/L (15-37) Sodium Level 132 MEQ/L (136-145) Potassium Level 3.4 MEQ/L (3.5-5.1) Estimat Glomerular Filtration Rate 45 ML/MIN (>89) Troponin I 2.35 NG/ML (0.02-0.05) Acetaminophen Level LESS THAN 2.0 MCG/ML Salicylates Level LESS THAN 1.7 MG/DL Urine Protein 100 mg/dL (NEG-TRACE) Urine Ketones 10 mg/dL (NEG) Urine Occult Blood SMALL (NEG) Urine Leukocyte Esterase TRACE (NEG) Urine Bacteria RARE /hpf (NONE) Urine Mucus FEW /lpf (OCC) Urine Benzodiazepines Screen POS (NEG) Test 08/14/17 01:52 08/14/17 05:25 08/14/17 07:41 08/14/17 12:23 Total Creatine Kinase 3345 U/L (26-192) 2641 U/L (26-192) Creatine Kinase MB 3.8 NG/ML (0.5-3.6) Troponin I 1.52 NG/ML (0.02-0.05) 0.72 NG/ML (0.02-0.05) Activated Partial Thromboplast Time 24.0 SEC (24.3-30.1) Blood Urea Nitrogen 26 MG/DL (7-18) Albumin 2.8 GM/DL (3.4-5.0) Aspartate Amino Transf (AST/SGOT) 79 U/L (15-37) Estimat Glomerular Filtration Rate 61 ML/MIN (>89) Test 08/14/17 12:25 08/14/17 20:15 08/15/17 02:52 08/15/17 11:36 Activated Partial Thromboplast Time 32.2 SEC (24.3-30.1) 36.4 SEC (24.3-30.1) 39.0 SEC (24.3-30.1) White Blood Count 16.6 TH/MM3 (4.0-11.0) Red Blood Count 3.34 MIL/MM3 (4.00-5.30) Hemoglobin 10.4 GM/DL (11.6-15.3) Hematocrit 31.3 % (35.0-46.0) Neutrophils (%) (Auto) 75.1 % (16.0-70.0) Neutrophils # (Auto) 12.4 TH/MM3 (1.8-7.7) Monocytes # (Auto) 1.3 TH/MM3 (0-0.9) Test 08/15/17 20:53 08/16/17 03:49 Activated Partial Thromboplast Time 38.5 SEC (24.3-30.1) 44.0 SEC (24.3-30.1) Imaging Last Impressions Head CT 08/13/171915 Signed Impressions: Service Date/Time: Sunday, August 13, 2017 19:36 - CONCLUSION: Normal examination for a patient of this age. Delbert Neumann MD Chest X-Ray 08/13/171915 Signed Impressions: Service Date/Time: Sunday, August 13, 2017 19:45 - CONCLUSION: Scattered infiltrates in both lung bases suggestive of atelectasis. Delbert Neumann MD PE at Discharge awake and alert oral cavity- dry sores- tongue- improved no rales regular rhythm abdomen soft extremities no edema, no calf tenderness wrist- cath site- no hematoma gait steady Pt update on day of discharge awake and alert, afebrile good po no headaches gait steady Hospital Course 67-year-old female with Non-ST elevation NH- no significant CAD on cath- ASA echo- good EF Seizure disorder Head CT noted and review-without any intracranial abnormality Neurology ff Currently on Keppra IV - change to po Seizure precaution OP ff up with Dr. Sultana Interstitial lung disease Recent Flu as OP d/w Dr. Macias - OP referral to [facility] History of RA on Remicaide and Mtx as OP- was recently held due to Flu Leukocytosis- on empiric rocephin- change to po levaquin on DC Rhabdomyolysis from SZ encrouage po fluids DVT prophylaxis: Bilateral SCDs DC home advise- no driving for 6 months, avoid heights, adequate sleep, med compliance Pt Condition on Discharge: Stable Discharge Disposition: Discharge Home Discharge Time: > 30 minutes Discharge Instructions DIET: Follow Instructions for: Heart Healthy Diet Speech Therapy-Diet Recommends: Regular Activities you can perform: Weight Bearing as Valente Activities to Avoid: Strenuous Activity, Driving Other Activity Instructions: no driving for 6 months Follow up Referrals: Neurology - 1 Week with Kayy PCP Follow-up - 2-3 Days with [facility] Pulmonology - 2 Weeks with Brynn Macias MD New Medications: Levofloxacin (Levaquin) 500 Mg Tablet 500 MG PO DAILY for Infection for 5 Days, #5 TAB 0 Refills [Nystatin Liq] () 5 ML SUSP 5 ML SWISH-SWAL QID for oral for 5 Days Continued Medications: Hydroxyzine HCl (Hydroxyzine HCl) 50 Mg Tab 50 MG PO TID, TAB 0 Refills Lamotrigine (Lamotrigine) 200 Mg Tab 200 MG PO BID for Control Seizures, #60 TAB 0 Refills [Boniva ] () DIRECTED I.V. Q 3 MONTHS [Calcium/Mag/Zinc] () 1 TAB PO BID [Fiber Supp] () 2 CAP PO BID [Methotrexate] () IM WEEKLY 50MG/2ML ; PT USES 0.6 CC ONCE WEEKLY [Organic Wheat Grass] () PO DAILY Discontinued Medications: Benzonatate (Benzonatate) 100 Mg Cap 100 MG PO TID PRN for COUGH, CAP 0 Refills Stewart Marx MD Aug 16, 2017 14:56
[2017-08-16 16:52] LABS: HEMOGLOBIN A1C 5.4 % (4.3-6.0)
[2017-08-16 17:57] VITALS: O2SAT 92
[2017-08-16] MEDS ORDERED: levETIRAcetam 500 MG TAB PO SCH (21:00)
== END 2017-08-16 19:30 | disposition home or self-care (01) | DRG 281 ==
LOC: NEPC 18:56 → NEDA 21:31 → N05A 23:36
PROVIDERS: ADMIT Internal Medicine; ATTEND Internal Medicine
PROC: B2111ZZ Fluoroscopy of Multiple Coronary Arteries using Low Osmolar Contrast (ICD-10-PCS; 2017-08-16)
PROC: 4A023N7 Measurement of Cardiac Sampling and Pressure, Left Heart, Percutaneous Approach (ICD-10-PCS; principal; 2017-08-16 09:30)
DX: I21.4 Non-ST elevation (NSTEMI) myocardial infarction (principal); N39.0 Urinary tract infection, site not specified; J84.9 Interstitial pulmonary disease, unspecified; M62.82 Rhabdomyolysis; J98.11 Atelectasis; I25.10 Atherosclerotic heart disease of native coronary artery without angina pectoris; G40.909 Epilepsy, unspecified, not intractable, without status epilepticus; M06.9 Rheumatoid arthritis, unspecified; Z87.891 Personal history of nicotine dependence
CPT/HCPCS: 70450; 71045; 80053; 80061; 80307; 81001; 82140; 82550; 82552; 83036; 83605; 84146; 84443; 84484; 85025; 85610; 85730; 87040; 87086; 93005; 93306; 93458; 95819; 96365; 96375; 99152; C1769; C1893; J0696; J1644; J1953; J2060; J2250; J3010; J7512; Q9967

== ENCOUNTER 2017-12-02 16:30 | Inpatient (IN) | payer MEDICARE ==
[~2017-12-02] VITALS: Ht 154.9 cm; Wt 74.0 kg
[~2017-12-02 16:30] MED LIST changes: -DICL-86 PO; +DOXY100C PO; -FAMO1TAB36 PO; -FISH1000 PO; -FOLI1TAB PO; +HYDR50TA94 PO; -INFL100P IV; +LAMO200T PO; +LEVA500T33 PO; -LEVE500 PO; -LEVE750T8 PO; +Nystatin Liq SWISH-SWAL; -TAB-TAB PO; -VITA100T55 OR; -VITA200017 OR
[2017-12-02] MEDS ORDERED: SODIUM CHLOR 0.9% 1000 ML INJ 1,000 ML IV ONE ×3 (16:45→20:45)
[2017-12-02] MEDS ORDERED: PIPERACIL-TAZO 3.375 GM PREMIX 50 ML IV ONE (16:45)
[2017-12-02] MEDS ORDERED: VANCOMYCIN INJ 1,000 MG in SODIUM CHLOR 0.9% 250 ML INJ 250 ML IV ONE (16:45)
[2017-12-02 16:50] VITALS: BP 143/75; PULSE 125; RESP 24; TEMP 101.2; O2SAT 97
[2017-12-02] MEDS ORDERED: ACETAMINOPHEN 325 MG TAB PO ONE (17:00)
[2017-12-02] MEDS ORDERED: KETOROLAC TROMETHAMINE 30 MG/ML (IVP) VIAL IV PUSH ONE (17:00)
--- NOTE | 2017-12-02 17:26 | RADRPT ---
EXAM DATE: 12/02/2017 5:08 PM EDT AGE/SEX: 67 years / Female INDICATIONS: Shortness of breath and fever. CLINICAL DATA: This is the patient's initial encounter. Patient reports that signs and symptoms have been present for 2 days and indicates a pain score of 0/10. MEDICAL/SURGICAL HISTORY: None. None. COMPARISON: Chest x-ray September 02, 2017. FINDINGS: A single portable frontal view of the chest shows chronic interstitial markings. Intra-alveolar opaci ties are seen within both lung bases. No effusions. Heart is normal in size. Prominence of the pulmon breanne outflow tract suggesting pulmonary hypertension. Prior cement augmentation involving thoracic lawson tebral body. 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 CONCLUSION: Bibasilar pulmonary infiltrates with suspected pulmonary hypertension. Electronically signed by: Brad Reyes MD 12/02/2017 5:25 PM EDT
[2017-12-02 17:30] LABS: AUTOMATED NEUTROPHIL # 9.2 TH/MM3 (1.8-7.7); BASOPHIL % 0.3 % (0.0-2.0); EOSINOPHIL % 0.3 % (0.0-4.0); HEMATOCRIT 30.7 % (35.0-46.0); HEMOGLOBIN 10.3 GM/DL (11.6-15.3); LYMPHOCYTE # 0.4 TH/MM3 (1.0-4.8); MEAN CELL VOLUME 95.6 FL (80.0-100.0); MEAN CORPUSCULAR HEMOGLOBIN 31.9 PG (27.0-34.0); MEAN CORPUSCULAR HGB CONC 33.4 % (32.0-36.0); MEAN PLATELET VOLUME 7.8 FL (7.0-11.0); MONO % 5.1 % (0.0-8.0); MONOCYTE # 0.5 TH/MM3 (0-0.9); NEUT % 90.3 % (16.0-70.0); PLATELET COUNT 304 TH/MM3 (150-450); RED BLOOD COUNT 3.22 MIL/MM3 (4.00-5.30); WHITE BLOOD COUNT 10.2 TH/MM3 (4.0-11.0)
[2017-12-02] MEDS ORDERED: LORazepam 2 MG/ML VIAL IV PUSH ONE (17:30)
[2017-12-02] MEDS ORDERED: LORA-474 PO (17:32)
[2017-12-02] MEDS ORDERED: BENZ100 PO (17:32)
[2017-12-02] MEDS ORDERED: BRIV1TAB4 PO (17:32)
[2017-12-02 17:52] LABS: ALBUMIN 3.1 GM/DL (3.4-5.0); ALT (GPT) 13 U/L (10-53); AST (GOT) 15 U/L (15-37); BICARBONATE 19.6 MEQ/L (21.0-32.0); BLOOD UREA NITROGEN 23 MG/DL (7-18); CALCIUM 8.1 MG/DL (8.5-10.1); CHLORIDE 109 MEQ/L (98-107); CREATININE 1.48 MG/DL (0.50-1.00); GLOMERULAR FILTRATION RATE 35 ML/MIN (>89); GLUCOSE,RANDOM 109 MG/DL (74-106); MAGNESIUM 1.6 MG/DL (1.5-2.5); SODIUM (NA) 138 MEQ/L (136-145)
[2017-12-02 18:02] LABS: ALKALINE PHOSPHATASE 66 U/L (45-117); TOTAL BILIRUBIN ADULT 0.5 MG/DL (0.2-1.0); TOTAL PROTEIN 7.9 GM/DL (6.4-8.2); TROPONIN I LESS THAN 0.02 NG/ML (0.02-0.05)
[2017-12-02 18:18] VITALS: PULSE 112; RESP 24; TEMP 100.7; O2SAT 94
[2017-12-02] MEDS ORDERED: VANCOMYCIN INJ 1,000 MG in SODIUM CHLOR 0.9% 250 ML INJ 250 ML IV SCH (18:30)
[2017-12-02] MEDS ORDERED: BISACODYL 10 MG SUPP RECTAL PRN (18:30)
[2017-12-02] MEDS ORDERED: SODIUM CHLORIDE 0.9% FLUSH 10 ML FLUSH IV FLUSH PRN (18:30)
[2017-12-02] MEDS ORDERED: METOCLOPRAMIDE HCL 10 MG/2 ML VIAL IV PUSH PRN (18:30)
[2017-12-02] MEDS ORDERED: NALOXONE HCL 0.4 MG/ML AMP IV PUSH PRN (18:30)
[2017-12-02] MEDS ORDERED: LACTULOSE SYRUP 20 GM/30 ML CUP PO PRN (18:30)
[2017-12-02] MEDS ORDERED: Vancomycin Consult Pharmacy 1 EA OTHER SCH (18:30)
[2017-12-02] MEDS ORDERED: SENNOSIDES 8.6 MG TAB PO PRN (18:30)
[2017-12-02] MEDS ORDERED: MAGNESIUM HYDROXIDE SUSP 30 ML CUP PO PRN (18:30)
--- NOTE | 2017-12-02 18:44 | PD ---
HPI Chief Complaint: Altered Mental Status Time Seen by Provider: 16:36 Travel History International Travel<30 days: No Contact w/Intl Traveler<30days: No Traveled to known affect area: No History of Present Illness HPI 67-year-old female that presents to the ED for evaluation of altered mental status and fever. Patient came here by ambulance for evaluation of this. Patient was apparently at home and family noticed that she was been very out there. They noted that she complained of being very cold. She actually had a heater as well as multiple blankets on her. The noted that she had a high temperature 104. She states that she was having some cough ongoing for a couple of weeks. She states that this morning she was doing fine until she started developing "coldness." History is a little bit limited from the patient as she does appear to be somewhat confused. She is able to answer some questions but then goes back into what appears to be delirium. She denies any chest pain. No shortness of breath. She does states that she has rheumatoid arthritis and takes medications for this. She takes methotrexate as well as a biologic. She states that she has pain all over her joints. She denies any back or neck pain. No urinary or bowel movement issues. No diarrhea. Nausea or vomiting. No headache. No ear pain. No sore throat. She has been coughing multiple times during my examination is the only positive finding that I can get from her other than the body aches. She was given IV fluids by ambulance but no Tylenol given. PFSH Past Medical History Arthritis: Yes Anxiety: Yes Cancer: No Diabetes: No Hepatitis: No Hiatal Hernia: No Medical other: Yes (GASTRIC ULCERS; RHEUMATOID ARTHRITIS;SEIZURE) Respiratory: No Seizures: Yes Thyroid Disease: No Past Surgical History Oral Surgery: Yes (AGE 15 T&A) Pacemaker: No Other Surgery: Yes Social History Alcohol Use: No Tobacco Use: No Substance Use: Yes Allergies-Medications (Allergen,Severity, Reaction): Coded Allergies: bertholletia excelsa (Unverified Allergy, Intermediate, MOUTH SWELLING; RESP PROBLEMS, 12/02/17) diatrizoate meglumine (Unverified Allergy, Intermediate, SEVERE HIVES, ) gadobenic acid (Unverified Allergy, Intermediate, SEVERE HIVES, 12/02/17) gadodiamide (Unverified Allergy, Intermediate, SEVERE HIVES, 12/02/17) gadoteridol (Unverified Allergy, Intermediate, SEVERE HIVES, 12/02/17) iodixanol (Unverified Allergy, Intermediate, SEVERE HIVES, 12/02/17) iohexol (Unverified Allergy, Intermediate, SEVERE HIVES, 12/02/17) risedronate sodium (Unverified Allergy, Intermediate, SEVERE CHILLS, ) tree nut (Unverified Allergy, Intermediate, MOUTH SWELLING; RESP PROBLEMS , 12/02/17) walnut (Unverified Allergy, Intermediate, MOUTH SWELLING; DIFFICULT RESP. , 12/02/17) Reported Meds & Prescriptions Reported Meds & Active Scripts Active Reported Ativan (Lorazepam) 1 Mg Tab 1 Mg PO HS Tessalon Perles (Benzonatate) 100 Mg Cap 100 Mg PO TID PRN Briviact (Brivaracetam) 50 Mg Tab 50 Mg PO HS Hydroxyzine HCl 50 Mg Tab 50 Mg PO TID Review of Systems Except as stated in HPI: all other systems reviewed are Neg Physical Exam Narrative GENERAL: Well-nourished, well-developed patient in no apparent distress. SKIN: Warm and dry. HEAD: Atraumatic. Normocephalic. EYES: Pupils equal and round reactive to light and accommodation. No scleral icterus. No injection or drainage. ENT: No nasal bleeding or discharge. Mucous membranes pink and moist. TMs are clear with no sign of infection or perforation. No mastoid tenderness. Ear canals are intact bilaterally. No lymphadenopathy. Nostril mucosa is red and moist with clear mucus noted. No sinus tenderness to palpation noted. Tonsils are not enlarged or swollen. No ulvua Deviation. Tongue is midline. NECK: Trachea midline. No JVD. No meningeal signs noted CARDIOVASCULAR: Regular rate and rhythm. RESPIRATORY: No accessory muscle use. Clear to auscultation. Breath sounds equal bilaterally. GASTROINTESTINAL: Abdomen soft, non-tender, nondistended. Hepatic and splenic margins not palpable. MUSCULOSKELETAL: Extremities without clubbing, cyanosis, or edema. No obvious deformities. Full range of motion of the upper and lower extremities. 2+ pulses bilaterally. NEUROLOGICAL: Awake and alert. No obvious cranial nerve deficits. Motor grossly within normal limits. Five out of 5 muscle strength in the arms and legs. Normal speech. PSYCHIATRIC: Appropriate mood and affect; insight and judgment normal. Data Data Last Documented VS Vital Signs Date Time Temp Pulse Resp B/P (MAP) Pulse Ox O2 Delivery O2 Flow Rate FiO2 12/02/17 18:18 100.7 112 24 94 Room Air Orders Orders Electrocardiogram (12/02/17 16:43) Complete Blood Count With Diff (12/02/17 16:43) Comprehensive Metabolic Panel (12/02/17 16:43) Troponin I (12/02/17 16:43) Blood Culture (12/02/17 16:43) Lipase (12/02/17 16:43) Urinalysis - C+S If Indicated (12/02/17 16:43) Cath For Specimen (12/02/17 16:43) Magnesium (Mg) (12/02/17 16:43) Thyroid Stimulating Hormone (12/02/17 16:43) Chest, Single Ap (12/02/17 16:43) Iv Access Insert/Monitor (12/02/17 16:43) Ecg Monitoring (12/02/17 16:43) Oximetry (12/02/17 16:43) Ct Brain W/O Iv Contrast(Rout) (12/02/17 ) Influenzae A/B Antigen (12/02/17 16:43) Sodium Chlor 0.9% 1000 Ml Inj (Ns 1000 M (12/02/17 16:45) Piperacil-Tazo 3.375 Gm Premix (Zosyn 3. (12/02/17 16:45) Vancomycin Inj (Vancomycin Inj) (12/02/17 16:45) Ketorolac Inj (Toradol Inj) (12/02/17 17:00) Acetaminophen (Tylenol) (12/02/17 17:00) Sodium Chlor 0.9% 1000 Ml Inj (Ns 1000 M (12/02/17 17:00) Lorazepam Inj (Ativan Inj) (12/02/17 17:30) Sepsis Workup Initiated (12/02/17 ) Lactic Acid Sepsis Protocol (12/02/17 17:26) Admit Order (Ed Use Only) (12/02/17 18:33) Admit To Inpatient (12/02/17 ) Vital Signs (Adult) Q4H (12/02/17 18:30) Neuro Checks Q4H (12/02/17 18:30) Activity Oob With Assistance (12/02/17 18:30) Intake + Output ZANE.QSHIFT (12/02/17 18:30) Diet Heart Healthy (12/02/17 Dinner) Sodium Chlor 0.9% 1000 Ml Inj (Ns 1000 M (12/02/17 18:30) Sodium Chloride 0.9% Flush (Ns Flush) (12/02/17 18:30) Sodium Chloride 0.9% Flush (Ns Flush) (12/02/17 21:00) Metoclopramide Inj (Reglan Inj) (12/02/17 18:30) Basic Metabolic Panel (Bmp) (12/03/17 06:00) Complete Blood Count With Diff (12/03/17 06:00) Naloxone Inj (Narcan Inj) (12/02/17 18:30) Docusate Sodium-Senna (Caren-Colace) (12/02/17 21:00) Magnesium Hydroxide Liq (Milk Of Magnesi (12/02/17 18:30) Sennosides (Senokot) (12/02/17 18:30) Bisacodyl Supp (Dulcolax Supp) (12/02/17 18:30) Lactulose Liq (Lactulose Liq) (12/02/17 18:30) Inpatient Certification (12/02/17 ) Heparin Inj (Heparin Inj) (12/02/17 21:00) Vancomycin Inj (Vancomycin Inj) (12/02/17 18:30) Piperacil-Tazo 3.375 Gm Premix (Zosyn 3. (12/02/17 18:30) Vancomycin Consult Pharmacy (Vancomycin (12/02/17 18:30) Labs Laboratory Tests Test 12/02/17 17:00 12/02/17 17:45 White Blood Count 10.2 TH/MM3 Red Blood Count 3.22 MIL/MM3 Hemoglobin 10.3 GM/DL Hematocrit 30.7 % Mean Corpuscular Volume 95.6 FL Mean Corpuscular Hemoglobin 31.9 PG Mean Corpuscular Hemoglobin Concent 33.4 % Red Cell Distribution Width 14.0 % Platelet Count 304 TH/MM3 Mean Platelet Volume 7.8 FL Neutrophils (%) (Auto) 90.3 % Lymphocytes (%) (Auto) 4.0 % Monocytes (%) (Auto) 5.1 % Eosinophils (%) (Auto) 0.3 % Basophils (%) (Auto) 0.3 % Neutrophils # (Auto) 9.2 TH/MM3 Lymphocytes # (Auto) 0.4 TH/MM3 Monocytes # (Auto) 0.5 TH/MM3 Eosinophils # (Auto) 0.0 TH/MM3 Basophils # (Auto) 0.0 TH/MM3 CBC Comment DIFF FINAL Differential Comment Blood Urea Nitrogen 23 MG/DL Creatinine 1.48 MG/DL Random Glucose 109 MG/DL Total Protein 7.9 GM/DL Albumin 3.1 GM/DL Calcium Level 8.1 MG/DL Magnesium Level 1.6 MG/DL Alkaline Phosphatase 66 U/L Aspartate Amino Transf (AST/SGOT) 15 U/L Alanine Aminotransferase (ALT/SGPT) 13 U/L Total Bilirubin 0.5 MG/DL Sodium Level 138 MEQ/L Potassium Level 3.8 MEQ/L Chloride Level 109 MEQ/L Carbon Dioxide Level 19.6 MEQ/L Anion Gap 9 MEQ/L Estimat Glomerular Filtration Rate 35 ML/MIN Troponin I LESS THAN 0.02 NG/ML Lipase 113 U/L Thyroid Stimulating Hormone 3rd Gen 0.332 uIU/ML Lactic Acid Level 1.0 mmol/L [facility] Medical Decision Making Medical Screen Exam Complete: Yes Emergency Medical Condition: Yes Medical Record Reviewed: Yes Interpretation(s) CBC & BMP Diagram 12/02/17 17:00 Total Protein 7.9, Albumin 3.1 L, Calcium Level 8.1 L, Magnesium Level 1.6, Alkaline Phosphatase 66, Aspartate Amino Transf (AST/SGOT) 15, Alanine Aminotransferase (ALT/SGPT) 13, Total Bilirubin 0.5 Last Impressions Chest X-Ray 12/02/17 1643 Signed Impressions: CONCLUSION: Bibasilar pulmonary infiltrates with suspected pulmonary hypertension. Differential Diagnosis Pneumonia versus sepsis versus altered mental status versus tachycardia versus infection versus interstitial lung disease versus syncope Narrative Course 67-year-old female that presents to the ED for evaluation of altered mental status and fever. Patient was properly examined and was found to have signs and symptoms which appear to be consistent with sepsis. History is limited because patient does appear to be somewhat delirious likely from the sepsis. Patient was given IV fluids and I started patient on Zosyn and vancomycin as there is no obvious source at this time I suspect that it could be related to pneumonia versus upper respiratory infection. She complains of being very cold but she does have a high fever 102 by ambulance. Patient was started on Tylenol , Toradol, IV fluids labs and imaging were ordered. Labs and imaging did show what appears to be possible pneumonia on chest x-ray with infiltrates noted. She also has interstitial lung disease per report. Case was discussed with my attending Dr. Salamanca who agrees the patient should be admitted. Case discussed with Dr. Ordoñez who agrees to admission for sepsis. Sepsis Criteria SIRS Criteria (2 or more): Temp > 100.9 or < 96.8, Heart rate over 90 Sepsis Criteria (SIRS+source): Infect source susp/known Criteria Outcome: Meets sepsis criteria Diagnosis Primary Impression: Sepsis Qualified Codes: A41.9 - Sepsis, unspecified organism Additional Impressions: Pneumonia Qualified Codes: J18.1 - Lobar pneumonia, unspecified organism Altered mental status Qualified Codes: R41.82 - Altered mental status, unspecified Admitting Information Admitting Physician Requests: Admit Arolod Thornton December 02, 2017 18:44
--- NOTE | 2017-12-02 19:00 | HHI.HP ---
HPI Service [facility] Primary Care Physician Joy Gonzalez M.D. Admission Diagnosis acute sespis, pneumonia, altered mental status Diagnoses: (1) Sepsis Diagnosis: Principal (2) PNA (pneumonia) Diagnosis: Principal (3) Encephalopathy Diagnosis: Principal (4) BARB (acute kidney injury) Diagnosis: Principal Travel History International Travel<30 Days: No Contact w/Intl Traveler <30 Da: No Traveled to Known Affected Are: No History of Present Illness This is a 67-year-old female with a PMH of Rheumatoid Arthritis, Seizure Disorder and Anxiety was brought to the ER by EMS for AMS and fever. Per report , patient was noted to be confused w/ temp of 104. On arrival, patient significantly agitated, not answering questions appropriately, requiring Ativan 0.5mg IV. On arrival, BP 143/75, HR 125, O2 sat 97% on RA, Temp 101.2. WBC 10.2. Creatinine 1.48, previously 0.91 on 08/14/2017. Troponin negative. Lactic Acid 1.0. UA with small LE. CXR with bibasilar pulmonary infiltrates with suspected pulmonary hypertension. CT Head with no acute findings. S/p Vanc/Zosyn in ER. While in ER, pt w/ improved mentation, now states she had gone for a walk and when she returned home felt dizzy, took her BP which was in the 80's systolic. Pt w/ episode of hypotension in the ER requiring IVF bolus. No mental status change. Review of Systems Except as stated in HPI: all other systems reviewed are Neg ROS: 14 point review of systems otherwise negative. Past Family Social History Past Medical History PMH: Rheumatoid Arthritis, Seizure Disorder and Anxiety Past Surgical History PAST SURGICAL HISTORY: Right Wrist ORIF, Tonsillectomy Allergies: Coded Allergies: bertholletia excelsa (Unverified Allergy, Intermediate, MOUTH SWELLING; RESP PROBLEMS, 12/02/17) diatrizoate meglumine (Unverified Allergy, Intermediate, SEVERE HIVES, ) gadobenic acid (Unverified Allergy, Intermediate, SEVERE HIVES, 12/02/17) gadodiamide (Unverified Allergy, Intermediate, SEVERE HIVES, 12/02/17) gadoteridol (Unverified Allergy, Intermediate, SEVERE HIVES, 12/02/17) iodixanol (Unverified Allergy, Intermediate, SEVERE HIVES, 12/02/17) iohexol (Unverified Allergy, Intermediate, SEVERE HIVES, 12/02/17) risedronate sodium (Unverified Allergy, Intermediate, SEVERE CHILLS, ) tree nut (Unverified Allergy, Intermediate, MOUTH SWELLING; RESP PROBLEMS , 12/02/17) walnut (Unverified Allergy, Intermediate, MOUTH SWELLING; DIFFICULT RESP. , 12/02/17) Family History PAST FAMILY HISTORY: Reviewed. No h/o DM or CAD Social History PAST SOCIAL HISTORY: Negative for alcohol, tobacco or drugs Physical Exam Vital Signs Vital Signs Date Time Temp Pulse Resp B/P (MAP) Pulse Ox O2 Delivery O2 Flow Rate FiO2 12/02/17 18:18 100.7 112 24 94 Room Air 12/02/17 16:50 101.2 125 24 143/75 (97) 97 Room Air 12/02/17 16:49 Room Air 12/02/17 16:45 125 24 95 Room Air Physical Exam PE: GENERAL: Middle-aged white female in no acute distress. HEENT: PERRLA, EOMI. No scleral icterus or conjunctival pallor. No lid lag or facial droop. CARDIOVASCULAR: Regular rate and rhythm. No obvious murmurs to auscultation. No chest tenderness to palpation. RESPIRATORY: No obvious rhonchi or wheezing. Clear to auscultation. Breath sounds equal bilaterally. GASTROINTESTINAL: Abdomen soft, non-tender, nondistended. BS normal. MUSCULOSKELETAL: Extremities without clubbing, cyanosis, or edema. No obvious deformities. NEUROLOGICAL: Awake, alert and oriented x4. No focal neurologic deficits. Moving both upper and lower extremities spontaneously. Laboratory Laboratory Tests Test 12/02/17 17:00 12/02/17 17:45 White Blood Count 10.2 Red Blood Count 3.22 Hemoglobin 10.3 Hematocrit 30.7 Mean Corpuscular Volume 95.6 Mean Corpuscular Hemoglobin 31.9 Mean Corpuscular Hemoglobin Concent 33.4 Red Cell Distribution Width 14.0 Platelet Count 304 Mean Platelet Volume 7.8 Neutrophils (%) (Auto) 90.3 Lymphocytes (%) (Auto) 4.0 Monocytes (%) (Auto) 5.1 Eosinophils (%) (Auto) 0.3 Basophils (%) (Auto) 0.3 Neutrophils # (Auto) 9.2 Lymphocytes # (Auto) 0.4 Monocytes # (Auto) 0.5 Eosinophils # (Auto) 0.0 Basophils # (Auto) 0.0 CBC Comment DIFF FINAL Differential Comment Blood Urea Nitrogen 23 Creatinine 1.48 Random Glucose 109 Total Protein 7.9 Albumin 3.1 Calcium Level 8.1 Magnesium Level 1.6 Alkaline Phosphatase 66 Aspartate Amino Transf (AST/SGOT) 15 Alanine Aminotransferase (ALT/SGPT) 13 Total Bilirubin 0.5 Sodium Level 138 Potassium Level 3.8 Chloride Level 109 Carbon Dioxide Level 19.6 Anion Gap 9 Estimat Glomerular Filtration Rate 35 Troponin I LESS THAN 0.02 Lipase 113 Thyroid Stimulating Hormone 3rd Gen 0.332 Lactic Acid Level 1.0 Date/Time Source Procedure Growth Status 12/02/17 17:00 Blood Peripheral Aerobic Blood Culture Pending Received 12/02/17 17:00 Blood Peripheral Anaerobic Blood Culture Pending Received 12/02/17 17:10 Nasal Washing Influenza Types A,B Antigen (LIZ) Pending Received Result Diagram: 12/02/17 1700 12/02/17 1700 Caprini VTE Risk Assessment Caprini VTE Risk Assessment: No/Low Risk (score <= 1) Caprini Risk Assessment Model Point Value = 1 Point Value = 2 Point Value = 3 Point Value = 5 Age 41-60 Minor surgery BMI > 25 kg/m2 Swollen legs Varicose veins or History of unexplained or recurrent spontaneous Oral contraceptives or hormone replacement Sepsis (< 1 month) Serious lung disease, including pneumonia (< 1 month) Abnormal pulmonary function Acute myocardial infarction Congestive heart failure (< 1 month) History of inflammatory bowel disease Medical patient at bed rest Age 61-74 Arthroscopic surgery Major open surgery (> 45 min) Laparoscopic surgery (> 45 min) Malignancy Confined to bed (> 72 hours) Immobilizing plaster cast Central venous access Age >= 75 History of VTE Family history of VTE Factor V Leiden Prothrombin [id number] Lupus anticoagulant Anticardiolipin antibodies Elevated serum homocysteine Heparin-induced thrombocytopenia Other congenital or acquired thrombophilia Stroke (< 1 month) Elective arthroplasty Hip, pelvis, or leg fracture Acute spinal cord injury (< 1 month) Prophylaxis Regimen Total Risk Factor Score Risk Level Prophylaxis Regimen 0-1 Low Early ambulation 2 Moderate Order ONE of the following: *Sequential Compression Device (SCD) *Heparin 5000 units SQ BID 3-4 Higher Order ONE of the following medications: *Heparin 5000 units SQ TID *Enoxaparin/Lovenox 40 mg SQ daily (WT < 150 kg, CrCl > 30 mL/min) *Enoxaparin/Lovenox 30 mg SQ daily (WT < 150 kg, CrCl > 10-29 mL/min) *Enoxaparin/Lovenox 30 mg SQ BID (WT < 150 kg, CrCl > 30 mL/min) AND/OR *Sequential Compression Device (SCD) 5 or more Highest Order ONE of the following medications: *Heparin 5000 units SQ TID (Preferred with Epidurals) *Enoxaparin/Lovenox 40 mg SQ daily (WT < 150 kg, CrCl > 30 mL/min) *Enoxaparin/Lovenox 30 mg SQ daily (WT < 150 kg, CrCl > 10-29 mL/min) *Enoxaparin/Lovenox 30 mg SQ BID (WT < 150 kg, CrCl > 30 mL/min) AND *Sequential Compression Device (SCD) Assessment and Plan Problem List: (1) Sepsis ICD Code: A41.9 - Sepsis, unspecified organism Status: Acute (2) PNA (pneumonia) ICD Code: J18.9 - Pneumonia, unspecified organism (3) Encephalopathy ICD Code: G93.40 - Encephalopathy, unspecified (4) BARB (acute kidney injury) ICD Code: N17.9 - Acute kidney failure, unspecified Assessment and Plan A/P: 1. Sepsis: Severe, w/ hypotension, BP 80's systolic while in ER requiring IVF bolus, s/p 2L IVF w/ BP now 90's, will monitor closely, admit to IMC, discussed w/ patient possibility of central line/pressors should she have persistent hypotension, she is agreeable. Temp 101.2, HR 125, Source-PNA, continue w/ IV Vanc/Zosyn, follow up cultures. 2. PNA: CXR w/ bilateral infiltrates, s/p Vanc/Zosyn, will continue w/ IV Abx , follow up cultures, DuoNeb prn. 3. Encephalopathy: secondary to Sepsis, now resolved, CT Head w/ no acute findings, images reviewed by me. 4. BARB: Creatinine 1.48, previously 0.91 on 08/14/2017. IVF for hydration, repeat labs in a.m., monitor I/O closely. 5. DVT Prophylaxis: SCD/Teds 6. Social work for d/c planning as needed 7. Case discussed w/ ER physician at length, labs/records/imaging reviewed by me. Physician Certification 2 Midnight Certification Type: Admission for Inpatient Services Order for Inpatient Services The services are ordered in accordance with Medicare regulations or non- Medicare payer requirements, as applicable. In the case of services not specified as inpatient-only, they are appropriately provided as inpatient services in accordance with the 2-midnight benchmark. Estimated LOS (days): 2 days is the estimated time the patient will need to remain in the hospital, assuming treatment plan goals are met and no additional complications. Post-Hospital Plan: Not yet determined Problem Qualifiers (1) Sepsis: Qualified Codes: A41.9 - Sepsis, unspecified organism Jada Zamora MD December 02, 2017 19:00
[2017-12-02 19:22] LABS: BILIRUBIN, URINE NEG (NEG); BLOOD, URINE NEG (NEG); GLUCOSE,URINE NEG (NEG); HYALINE CAST, URINE 3 /lpf (RARE); KETONE, URINE 10 mg/dL (NEG); MUCUS URINE FEW /lpf (OCC); NITRITE,URINE NEG (NEG); PH, URINE 5.5 (5.0-8.5); URINE COLOR YELLOW (YELLW/STRAW); URINE LEUKOCYTE ESTERASE SMALL (NEG)
--- NOTE | 2017-12-02 19:28 | RADRPT ---
EXAM DATE: 12/02/2017 7:25 PM EDT AGE/SEX: 67 years / Female INDICATIONS: Altered mental status and general weakness today. CLINICAL DATA: This is the patient's initial encounter. Patient reports that signs and symptoms have been present for 1 day and indicates a pain score of 0/10. MEDICAL/SURGICAL HISTORY: Rheumatoid arthritis. None. RADIATION DOSE: 41.02 CTDI (mGy) COMPARISON: [facility] [place], 08/13/2017. . TECHNIQUE: CT of the head without contrast. Using automated exposure control and adjustment of the mA and/or kV according to patient size, radiation dose was kept as low as reasonably achievable to ob tain optimal diagnostic quality images. FINDINGS: Cerebrum: The ventricles are normal for age. No evidence of midline shift, mass lesion, hemorrhage or acute infarction. No extraaxial fluid collections are seen. Posterior Fossa: The cerebellum and brainstem are intact. The 4th ventricle is midline. The cerebe llopontine angle is unremarkable. Extracranial: The visualized portion of the orbits is intact. Skull: The calvaria is intact. No evidence of skull fracture. CONCLUSION: 1. Stable exam 2. No evidence of acute infarct, hemorrhage, mass or edema. Electronically signed by: Gennaro Castorena MD 12/02/2017 7:27 PM EDT
[2017-12-02] MEDS: SODIUM CHLOR 0.9% 1000 ML INJ 1,000 ML IV SCH (19:40)
[2017-12-02 19:43] VITALS: BP 99/52; PULSE 93; RESP 16; TEMP 99.7; O2SAT 95
[2017-12-02] MEDS ORDERED: VANCOMYCIN INJ 750 MG in SODIUM CHLOR 0.9% 250 ML INJ 250 ML IV ONE (20:00)
[2017-12-02] MEDS ORDERED: SODIUM CHLOR 0.9% 250 ML INJ 250 ML IV ONE ×2 (20:15→21:00)
[2017-12-02] MEDS ORDERED: SODIUM CHLORID 0.9% 500 ML INJ 500 ML IV ONE (20:15)
[2017-12-02] MEDS ORDERED: NURSING INFORMATION XX SCH (20:45)
[2017-12-02] MEDS ORDERED: CHLORHEXIDINE GLUCONATE 2 % 1 PACK (2 CLOTHS) TOP PRN (20:45)
[2017-12-02] MEDS: SODIUM CHLORIDE 0.9% FLUSH 10 ML FLUSH IV FLUSH SCH (21:00)
[2017-12-02] MEDS ORDERED: HEPARIN SODIUM - SQ 10,000 UNITS/ML VIAL SQ SCH (21:00)
[2017-12-02 21:20] VITALS: BP 94/54; PULSE 92; RESP 16; O2SAT 98
--- NOTE | 2017-12-02 21:28 | EKG ---
Date Performed: 12/02/2017 Time Performed: 17:09:16 PTAGE: 67 years EKG: SINUS TACHYCARDIA POSSIBLE RIGHT VENTRICULAR CONDUCTION DELAY ABNORMAL RHYTHM ECG PREVIOUS TRACING : 08/14/2017 07.09 Compared to previous tracing, inferior T wave inversion is no longer evident. DOCTOR: Sandeep Reynoso Interpretating Date/Time 12/02/2017 21:26:54
[2017-12-02 22:00] VITALS: BP 94/53; PULSE 82; RESP 20; TEMP 98; O2SAT 99
[2017-12-02] MEDS: DOCUSATE SODIUM 50 MG/SENNA 8.6 MG TAB PO SCH (22:32)
[2017-12-03] VITALS (17 sets, daily range): BP systolic 90–149; BP diastolic 52–72; PULSE 65–101; RESP 18–44; TEMP 97.5–98.4; O2SAT 93–100
[2017-12-03] MEDS: PIPERACIL-TAZO 3.375 GM PREMIX 50 ML IV SCH ×3 (01:00→16:21)
[2017-12-03] MEDS: CHLORHEXIDINE GLUCONATE 2 % 1 PACK (2 CLOTHS) TOP SCH (04:00)
[2017-12-03] MEDS: SODIUM CHLOR 0.9% 1000 ML INJ 1,000 ML IV SCH (04:30)
[2017-12-03 08:07] LABS: AUTOMATED NEUTROPHIL # 9.3 TH/MM3 (1.8-7.7); BASOPHIL # 0.1 TH/MM3 (0-0.2); BASOPHIL % 0.5 % (0.0-2.0); EOSINOPHIL # 0.1 TH/MM3 (0-0.4); EOSINOPHIL % 0.6 % (0.0-4.0); HEMATOCRIT 25.9 % (35.0-46.0); HEMOGLOBIN 8.5 GM/DL (11.6-15.3); LYMPH % 12.1 % (9.0-44.0); LYMPHOCYTE # 1.4 TH/MM3 (1.0-4.8); MEAN CELL VOLUME 95.6 FL (80.0-100.0); MEAN CORPUSCULAR HEMOGLOBIN 31.2 PG (27.0-34.0); MEAN CORPUSCULAR HGB CONC 32.7 % (32.0-36.0); MEAN PLATELET VOLUME 7.7 FL (7.0-11.0); MONO % 8.2 % (0.0-8.0); NEUT % 78.6 % (16.0-70.0); PLATELET COUNT 257 TH/MM3 (150-450); RED BLOOD COUNT 2.71 MIL/MM3 (4.00-5.30); RED CELL DISTRIBUTION WIDTH 14.5 % (11.6-17.2); WHITE BLOOD COUNT 11.8 TH/MM3 (4.0-11.0)
[2017-12-03] MEDS: HEPARIN SODIUM - SQ 10,000 UNITS/ML VIAL SQ SCH ×2 (08:38→19:34)
[2017-12-03] MEDS: DOCUSATE SODIUM 50 MG/SENNA 8.6 MG TAB PO SCH ×2 (08:38→19:32)
[2017-12-03] MEDS: SODIUM CHLORIDE 0.9% FLUSH 10 ML FLUSH IV FLUSH SCH ×2 (08:38→19:33)
[2017-12-03 08:44] LABS: BICARBONATE 19.3 MEQ/L (21.0-32.0); CREATININE 1.09 MG/DL (0.50-1.00)
[2017-12-03 09:13] LABS: TOTAL PROTEIN 6.3 GM/DL (6.4-8.2)
[2017-12-03 09:20] LABS: CALCIUM-PROTEIN CORRECTED 7.4 MG/DL (8.5-10.1)
[2017-12-03] MEDS: RESP: ALBUTEROL 2.5 MG/IPRATROPIUM 0.5 MG NEB (SCH) NEB ×3 (09:30→20:07)
[2017-12-03] MEDS ORDERED: CALCIUM GLUCONATE INJ 2 GM in DEXTROSE 5% IN WATER 100ML INJ 100 ML IV ONE ×2 (09:45)
--- NOTE | 2017-12-03 09:54 | HHI.PR ---
Subjective Remarks The patient said she was feeling a lot better and wanted to go home. She said that her right great toe has been infected for the past 3 days. She says that there has been pus coming out of it. She says she has interstitial lung disease and her breathing is always poor but she is not on home oxygen. 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 She has pain from broken ribs and broken vertebrae. Discussed with nursing. Objective Vitals Vital Signs Date Time Temp Pulse Resp B/P (MAP) Pulse Ox O2 Delivery O2 Flow Rate FiO2 12/03/17 08:00 97.7 85 44 127/67 (87) 99 12/03/17 08:00 85 12/03/17 07:00 73 12/03/17 06:00 65 12/03/17 04:05 96 Nasal Cannula 4.00 12/03/17 04:00 69 12/03/17 04:00 97.8 69 19 90/54 (66) 97 12/03/17 02:00 65 12/03/17 00:00 97.5 66 19 91/52 (65) 100 12/03/17 00:00 66 12/02/17 22:00 82 12/02/17 22:00 98.0 82 20 94/53 (67) 99 12/02/17 21:55 12/02/17 21:20 92 16 94/54 (67) 98 Nasal Cannula 3.00 12/02/17 19:43 99.7 93 16 99/52 (68) 95 Nasal Cannula 2.00 12/02/17 18:18 100.7 112 24 94 Room Air 12/02/17 16:50 101.2 125 24 143/75 (97) 97 Room Air 12/02/17 16:49 Room Air 12/02/17 16:45 125 24 95 Room Air I/O 12/02/17 12/02/17 12/02/17 12/03/17 12/03/17 12/03/17 06:59 14:59 22:59 06:59 14:59 22:59 Intake Total 2300 ml Balance 2300 ml Intake IV Total 2300 ml # Voids 0 # Bowel Movements 0 Result Diagram: 12/03/17 0715 12/03/17 0715 Imaging Last Impressions Chest X-Ray 12/02/17 1643 Signed Impressions: CONCLUSION: Bibasilar pulmonary infiltrates with suspected pulmonary hypertension. Head CT 12/02/17 0000 Signed Impressions: CONCLUSION: 1. Stable exam 2. No evidence of acute infarct, hemorrhage, mass or edema. Objective Remarks GENERAL: No distress. HEENT: PERRLA, EOMI. No scleral icterus or conjunctival pallor. No lid lag or facial droop. CARDIOVASCULAR: Regular rate and rhythm. No obvious murmurs to auscultation. No chest tenderness to palpation. RESPIRATORY: Bilateral coarse breath sounds. GASTROINTESTINAL: Abdomen soft, non-tender, nondistended. BS normal. MUSCULOSKELETAL: Extremities without clubbing, cyanosis, or edema. No obvious deformities. NEUROLOGICAL: Awake, alert and oriented x4. No focal neurologic deficits. Moving both upper and lower extremities spontaneously. A/P Problem List: (1) Sepsis ICD Code: A41.9 - Sepsis, unspecified organism Status: Acute (2) PNA (pneumonia) ICD Code: J18.9 - Pneumonia, unspecified organism (3) Encephalopathy ICD Code: G93.40 - Encephalopathy, unspecified (4) BARB (acute kidney injury) ICD Code: N17.9 - Acute kidney failure, unspecified Assessment and Plan Sepsis Severe, w/ hypotension. BP 80's systolic while in ER requiring IVF boluses. Temp 101.2, HR 125. Source-PNA vs. right foot infection. - continue w/ IV Vanc/Zosyn. - follow blood and toe cultures. - IVFs. - telemetry. - x ray right foot to rule out infection. Acute on chronic respiratory failure The pt has ILD/ COPD. She is not on home oxygen. CXR w/ bilateral infiltrates. - will continue w/ IV Abx. - standing DuoNebs. - short course of prednisone. - encourage ambulation. - home oxygen walk test prior to discharge. Encephalopathy Secondary to sepsis, now resolved. CT Head w/ no acute findings. - treatment as above. BARB Creatinine 1.48 on admission. S/t sepsis. Improved. - IVF for hydration. - avoid nephrotoxins. RA On Remicade and methotrexate as an outpt. - continue outpt regimen. Broken ribs/ vertebrae The pt has osteoporosis. The pt recently had a kyphoplasty and is in chronic pain. - pain control. - PT eval. Anemia S/t RA. - follow CBC and transfuse as needed. DVT Prophylaxis: SCD/Teds Discharge Planning Transfer to floor. Anticipate d/c in 1 day if remains afebrile. Problem Qualifiers (1) Sepsis: Qualified Codes: A41.9 - Sepsis, unspecified organism Thomas Campos DO December 03, 2017 09:54
[2017-12-03] MEDS: ACETAMINOPHEN/HYDROcodone 325 MG/7.5 MG TAB PO PRN ×2 (11:43→19:42)
[2017-12-03] MEDS: predniSONE 20 MG TAB PO SCH (11:48)
[2017-12-03] MEDS: SODIUM CHLOR 0.45% 1000 ML INJ 1,000 ML IV SCH ×2 (13:15→19:45)
--- NOTE | 2017-12-03 14:27 | RADRPT ---
EXAM DATE: 12/03/2017 2:25 PM EDT AGE/SEX: 67 years / Female INDICATIONS: Evaluate inflammation in right foot 1st digit. CLINICAL DATA: This is the patient's subsequent encounter. Patient reports that signs and symptoms h ave been present for 2 days and indicates a pain score of 0/10. MEDICAL/SURGICAL HISTORY: None. None. COMPARISON: No prior [place] [facility] exams available for comparison. FINDINGS: Views of the right foot obtained. Severe arthritic changes of the first metatarsophalangeal joint. Th ere are erosions. Soft tissue prominence. No fracture or periosteal reaction. No radiopaque foreign bodies seen. CONCLUSION: Extensive erosive arthritic changes first metatarsophalangeal joint, likely gout. Electronically signed by: Chilo Estrada MD 12/03/2017 2:26 PM EDT
[2017-12-03] MEDS: VANCOMYCIN INJ 1,250 MG in SODIUM CHLOR 0.9% 250 ML INJ 250 ML IV SCH (19:33)
[2017-12-03] MEDS: LORazepam 1 MG TAB PO PRN (19:41)
[2017-12-03] MEDS: BRIVARACETAM PO SCH (21:17)
[2017-12-04] VITALS (8 sets, daily range): BP systolic 128–160; BP diastolic 62–80; PULSE 85–110; RESP 18–28; TEMP 97.4–98.2; O2SAT 94–98
[2017-12-04] MEDS: PIPERACIL-TAZO 3.375 GM PREMIX 50 ML IV SCH ×2 (00:45→07:35)
[2017-12-04] MEDS: CHLORHEXIDINE GLUCONATE 2 % 1 PACK (2 CLOTHS) TOP SCH (04:00)
[2017-12-04] MEDS: ACETAMINOPHEN/HYDROcodone 325 MG/7.5 MG TAB PO PRN ×2 (06:03→16:15)
[2017-12-04] MEDS: HEPARIN SODIUM - SQ 10,000 UNITS/ML VIAL SQ SCH ×2 (07:29→21:00)
[2017-12-04] MEDS: SODIUM CHLORIDE 0.9% FLUSH 10 ML FLUSH IV FLUSH SCH ×2 (07:29→21:00)
[2017-12-04] MEDS: predniSONE 20 MG TAB PO SCH (07:34)
[2017-12-04] MEDS: DOCUSATE SODIUM 50 MG/SENNA 8.6 MG TAB PO SCH ×2 (07:36→21:00)
[2017-12-04] MEDS: RESP: ALBUTEROL 2.5 MG/IPRATROPIUM 0.5 MG NEB (SCH) NEB ×3 (08:09→19:52)
[2017-12-04] MEDS: BENZONATATE 100 MG CAP PO SCH ×2 (12:31→21:00)
[2017-12-04 12:59] LABS: HEMATOCRIT 26.3 % (35.0-46.0); HEMOGLOBIN 8.7 GM/DL (11.6-15.3); MEAN CELL VOLUME 95.2 FL (80.0-100.0); MEAN CORPUSCULAR HEMOGLOBIN 31.6 PG (27.0-34.0); MEAN CORPUSCULAR HGB CONC 33.2 % (32.0-36.0); MEAN PLATELET VOLUME 7.9 FL (7.0-11.0); PLATELET COUNT 314 TH/MM3 (150-450); RED BLOOD COUNT 2.76 MIL/MM3 (4.00-5.30); RED CELL DISTRIBUTION WIDTH 14.6 % (11.6-17.2); WHITE BLOOD COUNT 11.3 TH/MM3 (4.0-11.0)
--- NOTE | 2017-12-04 16:00 | HHI.PR ---
Subjective Remarks RN reports pt wanting to go home. she is obviouly dyspneic even conversively and she does admit she's more winded then at the time of admission but she say thinks it's due to her hb begin at 8.5; when offered a transfusion she says she wants to go home and get this done as an outpatient. She's also very worried about missing her pulm and rheumatology appts both of which are tomorwo. RN denies any medical deterioration since last night. lab called to report MRSA on blood culture. Objective Vital Signs Date Time Temp Pulse Resp B/P (MAP) Pulse Ox O2 Delivery O2 Flow Rate FiO2 12/04/17 12:00 97.4 98 20 128/70 (89) 98 12/04/17 08:00 97.6 99 24 130/72 (91) 96 12/04/17 04:07 85 12/04/17 04:00 98.2 109 19 133/67 (89) 96 12/04/17 00:00 98.0 110 19 135/62 (86) 97 12/03/17 23:55 96 12/03/17 20:42 17 12/03/17 20:08 93 12/03/17 20:00 98.1 101 19 137/66 (89) 96 12/03/17 16:00 97.6 95 18 149/72 (97) 93 I/O 12/03/17 12/03/17 12/03/17 12/04/17 12/04/17 12/04/17 07:00 15:00 23:00 07:00 15:00 23:00 Intake Total 620 ml 552.5 ml 290 ml 50 ml Output Total 250 ml 900 ml Balance 620 ml 302.5 ml -610 ml 50 ml Intake Oral 240 ml 240 ml IV Total 620 ml 312.5 ml 50 ml 50 ml Output Urine Total 250 ml 900 ml # Voids 0 2 # Bowel Movements 0 0 0 Result Diagram: 12/04/17 1240 12/03/17 0715 Objective Remarks obvious dyspnea at rest and conversive dyspnea slightly diminshed BS at the bases, no wheezing well nourished elderly female who appears wide awake, very histrionic, and talkative A/P Assessment and Plan Sepsis - 2/2 PNA and likely bacteremia -sepsis element resolved - x ray right foot suggestive of gout PNA -continue vanc/zosyn MRSA bacteremia -/ bottles so far; - will consult ID - continue w/ IV Vanc Acute on chronic respiratory failure The pt has ILD/ COPD. She is not on home oxygen. CXR w/ bilateral infiltrates. 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 - short course of prednisone. - encourage ambulation. - home oxygen walk test prior to discharge. Encephalopathy resolved BARB -improving w/ IVFs RA On Remicade and methotrexate as an outpt. - continue outpt regimen. Broken ribs/ vertebrae The pt has osteoporosis. The pt recently had a kyphoplasty and is in chronic pain. - pain control. - PT eval. Anemia S/t RA. -holding stable Dylan Smith MD December 04, 2017 16:00
--- NOTE | 2017-12-04 16:15 | MB ---
cc: Brynn Macias MD DATE: 12/04/2017 HISTORY OF PRESENT ILLNESS: Ms. Pierre is a 67-year-old white female known to me with interstitial fibrosis related to several different co-factors including a prior smoking history, rheumatoid disease and the use of methotrexate. She also has chronic reflux, which may be a contributing factor. She has been recently seen at the [facility] because of the complexity of the problems and they agree with the current diagnosis of the interstitial lung disease. The patient is followed by a sample taker operator. She was admitted to the hospital with probable MRSA sepsis. One aerobic blood culture was positive. She had toenail work done and actually had an infection in the toenail of her great toe. She had expressed some purulent material over the course of 2-3 days before admission. She thought it was getting better, but then she developed a temperature to 104. She had shaking chills and became confused and her family brought her to the emergency room. Initial chest x-ray revealed chronic interstitial changes at the bases, really nothing that appeared significantly different than previous. One aerobic blood culture was positive for MRSA. Influenza A and B were negative. White count was 10,000. O2 saturations were low on presentation, but today she insists that they have been in the 90s even when she walks around in the hallway. I do not see that she has had a formal walk test. She had no cough or congestion or shortness of breath out of the ordinary leading up to this admission and she says her lungs are back at baseline, although she is a little weaker than usual. ADDITIONAL PAST MEDICAL HISTORY: 1. Seizure disorder. 2. Right wrist surgery. ALLERGIES: LISTED IN THE EMR. CURRENT MEDICATIONS: Listed in the EMR. SOCIAL HISTORY: She is not currently a smoker nor does she drink alcohol. REVIEW OF SYSTEMS: She has had no chest pain, no hemoptysis. No change in bowel habits. No swelling in her legs. PHYSICAL EXAMINATION: GENERAL: She is awake, alert, comfortable at rest, in no distress, 97 degrees, respirations 16-18, pulse is 90, O2 saturation 98%. HEENT: Sclerae are anicteric. Mucous membranes are moist. NECK: Neck veins are not distended. CHEST: Fine basilar rales, but no congestion or wheezing. HEART: Regular rhythm. No harsh murmur. ABDOMEN: Soft. EXTREMITIES: No peripheral edema. The toe that she said was infected looks slightly inflammatory, but not terribly so. DISCUSSION: Ms. Pierre presents with a chronic interstitial lung disease/fibrosis related to multiple factors as noted above. That appears to be currently stable. Current problem appears to have been due to an infection in her toe. Infectious Disease has been consulted. I will order a walk test to ensure that her O2 saturations are normal. If so, her pulmonary status would be stable for discharge. As I explained to her, however, the important thing is to be certain that she treats this infection correctly and well, particularly because she is immunocompromised with her medications. R. MD ALEJANDRA Boone/AKANKSHA , 03:52 PM , 04:14 PM
[2017-12-04] MEDS ORDERED: PIPERACIL-TAZO 2.25 GM PREMIX 50 ML IV SCH (17:00)
--- NOTE | 2017-12-04 17:49 | PD.ID.CON ---
History of Present Illness Service ID Consult Requested By Dr Hutson Reason for Consult sepsis Primary Care Physician Joy Gonzalez M.D. Diagnoses: History of Present Illness 67 yo female with RA, immunosuppressed, on remicade presented yday with 1 day of fever up to 103-104 and altered mental status Blood clx with MRSA growth in 1/4 bottles , @ 48 hrs Also had some R hallux paranichium CXR with some infiltrates Review of Systems Constitutional: COMPLAINS OF: Fever, Chills Respiratory: COMPLAINS OF: Cough, Shortness of breath Cardiovascular: COMPLAINS OF: Dyspnea on Exertion Musculoskeletal: COMPLAINS OF: Joint pain, Back pain Except as stated in HPI: all other systems reviewed are Neg Past Family Social History Allergies: Coded Allergies: bertholletia excelsa (Unverified Allergy, Intermediate, MOUTH SWELLING; RESP PROBLEMS, 12/02/17) diatrizoate meglumine (Unverified Allergy, Intermediate, SEVERE HIVES, ) gadobenic acid (Unverified Allergy, Intermediate, SEVERE HIVES, 12/02/17) gadodiamide (Unverified Allergy, Intermediate, SEVERE HIVES, 12/02/17) gadoteridol (Unverified Allergy, Intermediate, SEVERE HIVES, 12/02/17) iodixanol (Unverified Allergy, Intermediate, SEVERE HIVES, 12/02/17) iohexol (Unverified Allergy, Intermediate, SEVERE HIVES, 12/02/17) risedronate sodium (Unverified Allergy, Intermediate, SEVERE CHILLS, ) tree nut (Unverified Allergy, Intermediate, MOUTH SWELLING; RESP PROBLEMS , 12/02/17) walnut (Unverified Allergy, Intermediate, MOUTH SWELLING; DIFFICULT RESP. , 12/02/17) Past Medical History Rheumatoid Arthritis, Seizure Disorder and Anxiety Past Surgical History sp kyphoplast T 7-8 Right Wrist ORIF, Tonsillectomy R total knee arthroplasty Active Ordered Medications Medications where reviewed in EMR Antibiotics Include: zosyn vancomycion Family History Reviewed. No h/o DM or CAD Social History Negative for alcohol, tobacco or drugs Physical Exam Vital Signs Vital Signs Date Time Temp Pulse Resp B/P (MAP) Pulse Ox O2 Delivery O2 Flow Rate FiO2 12/04/17 16:00 97.9 99 28 160/80 (106) 98 12/04/17 12:00 97.4 98 20 128/70 (89) 98 12/04/17 08:00 97.6 99 24 130/72 (91) 96 12/04/17 04:07 85 12/04/17 04:00 98.2 109 19 133/67 (89) 96 12/04/17 00:00 98.0 110 19 135/62 (86) 97 12/03/17 23:55 96 12/03/17 20:42 17 12/03/17 20:08 93 12/03/17 20:00 98.1 101 19 137/66 (89) 96 Physical Exam CONSTITUTIONAL/GENERAL: This is an adequately nourished patient, in no apparent distress. TUBES/LINES/DRAINS: SKIN: No jaundice, rashes, or lesions. . Skin temperature appropriate. Not diaphoretic. HEAD: Atraumatic. Normocephalic. EYES: Pupils equal and round and reactive. Extraocular motions intact. No scleral icterus. No injection or drainage. Fundi not examined. ENT: Hearing grossly normal. Nose without bleeding or purulent drainage. Throat without visible erythema, exudates, masses, or lesions. edentulous dentures in place NECK: Trachea midline. Supple, nontender. No palpable thyroid enlargement or nodularity. CARDIOVASCULAR: Regular rate and rhythm without murmurs, gallops, or rubs. No JVD. Peripheral pulses symmetric. RESPIRATORY/CHEST: Symmetric, unlabored respirations. Clear to auscultation. Breath sounds equal bilaterally. + B/b dry crackles GASTROINTESTINAL: Abdomen soft, non-tender, nondistended. No hepato-splenomegaly , or palpable masses. No guarding. Bowel sounds present. GENITOURINARY: Without palpable bladder distension. No CVA tenderness MUSCULOSKELETAL: Extremities without clubbing, cyanosis, or edema. No joint tenderness or effusion noted. No calf tenderness. No mottling or clubbing. Well healed scar over R knee well healed scar over R forearm R hallux with mild edema, no active drainagem, so erythema noted minimla tenderness to palpation LYMPHATICS: No palpable cervical or supraclavicular adenopathy. NEUROLOGICAL: Awake and alert. Motor and sensory grossly within normal limits. Follows commands. Clear speech . Moves all extremities. PSYCHIATRIC: No obvious anxiety/depression. no apparent hallucinations or other psychotic thought process. Laboratory Laboratory Tests Test 12/04/17 12:40 White Blood Count 11.3 Red Blood Count 2.76 Hemoglobin 8.7 Hematocrit 26.3 Mean Corpuscular Volume 95.2 Mean Corpuscular Hemoglobin 31.6 Mean Corpuscular Hemoglobin Concent 33.2 Red Cell Distribution Width 14.6 Platelet Count 314 Mean Platelet Volume 7.9 Date/Time Source Procedure Growth Status 12/02/17 17:00 Blood Peripheral Aerobic Blood Culture - Preliminary NO GROWTH IN 2 DAYS Resulted 12/02/17 17:00 Blood Peripheral Anaerobic Blood Culture - Preliminary NO GROWTH IN 2 DAYS Resulted 12/02/17 17:10 Nasal Washing Influenza Types A,B Antigen (LIZ) - Final NEGATIVE FOR FLU A AND B ANTIGEN.... Complete Result Diagram: 12/04/17 1240 12/03/17 0715 Imaging Last Impressions Foot X-Ray 12/03/17 0000 Signed Impressions: CONCLUSION: Extensive erosive arthritic changes first metatarsophalangeal joint, likely gou t. Chest X-Ray 12/02/17 1643 Signed Impressions: CONCLUSION: Bibasilar pulmonary infiltrates with suspected pulmonary hypertension. Head CT 12/02/17 0000 Signed Impressions: CONCLUSION: 1. Stable exam 2. No evidence of acute infarct, hemorrhage, mass or edema. Assessment and Plan Assessment and Plan Sepsis in immunisuppresdsed pt low grade MRSA bacteremia source: ? R hallux, PNA, vs endovascular R hallux paronichium Immunosuppressed, on Remicade COPD/IPF - cont vancomycin dc zosyn repeat BC MRI w/o gadolinuium to r/o osteo [address] chest w/o contrast Eva Guajardo MD December 04, 2017 17:49
[2017-12-04] MEDS: VANCOMYCIN INJ 1,250 MG in SODIUM CHLOR 0.9% 250 ML INJ 250 ML IV SCH (20:59)
[2017-12-04] MEDS: BRIVARACETAM PO SCH (21:00)
[2017-12-04] MEDS: LORazepam 1 MG TAB PO PRN (21:00)
[2017-12-05] VITALS (10 sets, daily range): BP systolic 149–190; BP diastolic 80–104; PULSE 97–117; RESP 18–20; TEMP 97.1–98.1; O2SAT 92–98
[2017-12-05] MEDS: ACETAMINOPHEN/HYDROcodone 325 MG/7.5 MG TAB PO PRN ×4 (00:28→21:30)
[2017-12-05] MEDS: CHLORHEXIDINE GLUCONATE 2 % 1 PACK (2 CLOTHS) TOP SCH (04:00)
[2017-12-05] MEDS ORDERED: RESP: ALBUTEROL 2.5 MG/IPRATROPIUM 0.5 MG NEB (SCH) NEB ONE (05:30)
[2017-12-05] MEDS: RESP: ALBUTEROL 2.5 MG/IPRATROPIUM 0.5 MG NEB (SCH) NEB ×3 (07:48→15:56)
[2017-12-05] MEDS: HEPARIN SODIUM - SQ 10,000 UNITS/ML VIAL SQ SCH (09:00)
[2017-12-05] MEDS: DOCUSATE SODIUM 50 MG/SENNA 8.6 MG TAB PO SCH ×2 (09:00→21:00)
[2017-12-05] MEDS: BENZONATATE 100 MG CAP PO SCH ×2 (09:11→21:29)
[2017-12-05] MEDS: predniSONE 20 MG TAB PO SCH (09:11)
[2017-12-05] MEDS: SODIUM CHLORIDE 0.9% FLUSH 10 ML FLUSH IV FLUSH SCH ×2 (09:12→21:31)
--- NOTE | 2017-12-05 11:37 | HHI.PR ---
Subjective Remarks The patient is very anxious with pressured speech. She also cannot sleep at night. Is also shortness of breath and she is wheezing. She feels very tired. Denies any chest pain. No lightheadedness. She is not coughing much however she feels her chest is very congested. Objective Vitals Vital Signs Date Time Temp Pulse Resp B/P (MAP) Pulse Ox O2 Delivery O2 Flow Rate FiO2 12/05/17 10:43 103 12/05/17 08:00 98.1 101 19 166/93 (117) 95 12/05/17 07:51 95 Nasal Cannula 21 12/05/17 05:43 95 Nasal Cannula 2.00 12/05/17 04:00 117 20 190/104 (132) 93 12/05/17 00:00 97.8 97 18 149/80 (103) 92 12/04/17 20:00 97.4 107 18 150/78 (102) 94 12/04/17 19:55 94 12/04/17 16:00 97.9 99 28 160/80 (106) 98 12/04/17 12:00 97.4 98 20 128/70 (89) 98 I/O 12/04/17 12/04/17 12/04/17 12/05/17 12/05/17 12/05/17 07:00 15:00 23:00 07:00 15:00 23:00 Intake Total 290 ml 50 ml 1800 ml 500 ml Output Total 900 ml 3000 ml Balance -610 ml 50 ml 1800 ml -2500 ml Intake Oral 240 ml 1800 ml 240 ml IV Total 50 ml 50 ml 260 ml Output Urine Total 900 ml 3000 ml # Voids 2 4 # Bowel Movements 0 Result Diagram: 12/04/17 1240 12/03/17 0715 Imaging Last Impressions Foot X-Ray 12/03/17 0000 Signed Impressions: CONCLUSION: Extensive erosive arthritic changes first metatarsophalangeal joint, likely gou t. Chest X-Ray 12/02/17 1643 Signed Impressions: CONCLUSION: Bibasilar pulmonary infiltrates with suspected pulmonary hypertension. Head CT 12/02/17 0000 Signed Impressions: CONCLUSION: 1. Stable exam 2. No evidence of acute infarct, hemorrhage, mass or edema. Objective Remarks GENERAL: 67 yo F, with some sob, wheezing. Very anxious. Pressured speech. CARDIOVASCULAR: Regular rate and rhythm. RESPIRATORY: No accessory muscle use. With SOB and wheezing. Diminished BS at the bases. GASTROINTESTINAL: Abdomen soft, non-tender, nondistended. Hepatic and splenic margins not palpable. MUSCULOSKELETAL: Extremities without clubbing, cyanosis, or edema. No obvious deformities. NEUROLOGICAL: Awake and alert. No obvious cranial nerve deficits. Normal speech. A/P Problem List: (1) Sepsis ICD Code: A41.9 - Sepsis, unspecified organism Status: Acute (2) PNA (pneumonia) ICD Code: J18.9 - Pneumonia, unspecified organism (3) Encephalopathy ICD Code: G93.40 - Encephalopathy, unspecified (4) BARB (acute kidney injury) ICD Code: N17.9 - Acute kidney failure, unspecified Assessment and Plan Sepsis 2/2 PNA and likely bacteremia Sepsis element resolved X ray right foot suggestive of gout PNA-continue vanc/zosyn MRSA bacteremia 1/4 bottles so far; Cconsult ID, appreciate recs Continue IV Vanc Acute on chronic respiratory failure The pt has ILD/ COPD. She is not on home oxygen. CXR w/ bilateral infiltrates. 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 short course of prednisone. encourage ambulation. Needs home oxygen walk test prior to discharge. Add IS and acapella Encephalopathy resolved BARB-improving w/ IVFs. Monitor kidney function. Avoid nephrotoxins. RA On Remicade and methotrexate as an outpt. continue outpt regimen. Broken ribs/ vertebrae The pt has osteoporosis. The pt recently had a kyphoplasty and is in chronic pain. pain control. PT eval. Anemia S/t RA. HGB so far stable Patient is requesting hematology consult Consult hematology Discussed with the patient, nurse, Dr Kobe ALVARADO specialist Problem Qualifiers (1) Sepsis: Qualified Codes: A41.9 - Sepsis, unspecified organism Amber De MD December 05, 2017 11:37
[2017-12-05] MEDS ORDERED: CALCIUM CARBONATE 500 MG CHEWABLE TAB CHEW ONE (11:45)
--- NOTE | 2017-12-05 12:50 | HHI.IDPN ---
Subjective Subjective Remarks pt c/o SOB, dry cough unable to expectorate afebrile Antibiotics vancomycin Allergies: Coded Allergies: bertholletia excelsa (Unverified Allergy, Intermediate, MOUTH SWELLING; RESP PROBLEMS, 12/02/17) diatrizoate meglumine (Unverified Allergy, Intermediate, SEVERE HIVES, ) gadobenic acid (Unverified Allergy, Intermediate, SEVERE HIVES, 12/02/17) gadodiamide (Unverified Allergy, Intermediate, SEVERE HIVES, 12/02/17) gadoteridol (Unverified Allergy, Intermediate, SEVERE HIVES, 12/02/17) iodixanol (Unverified Allergy, Intermediate, SEVERE HIVES, 12/02/17) iohexol (Unverified Allergy, Intermediate, SEVERE HIVES, 12/02/17) risedronate sodium (Unverified Allergy, Intermediate, SEVERE CHILLS, ) tree nut (Unverified Allergy, Intermediate, MOUTH SWELLING; RESP PROBLEMS , 12/02/17) walnut (Unverified Allergy, Intermediate, MOUTH SWELLING; DIFFICULT RESP. , 12/02/17) Objective . Vital Signs Date Time Temp Pulse Resp B/P (MAP) Pulse Ox O2 Delivery O2 Flow Rate FiO2 12/05/17 12:00 97.6 108 19 174/94 (120) 96 12/05/17 10:43 103 12/05/17 08:00 98.1 101 19 166/93 (117) 95 12/05/17 07:51 95 Nasal Cannula 21 12/05/17 05:43 95 Nasal Cannula 2.00 12/05/17 04:00 117 20 190/104 (132) 93 12/05/17 00:00 97.8 97 18 149/80 (103) 92 12/04/17 20:00 97.4 107 18 150/78 (102) 94 12/04/17 19:55 94 12/04/17 16:00 97.9 99 28 160/80 (106) 98 12/05/17 12/05/17 12/06/17 15:00 23:00 07:00 Output Total 1000 ml Balance -1000 ml Output Urine Total 1000 ml . Laboratory Tests Test 12/04/17 12:40 White Blood Count 11.3 TH/MM3 Red Blood Count 2.76 MIL/MM3 Hemoglobin 8.7 GM/DL Hematocrit 26.3 % Mean Corpuscular Volume 95.2 FL Mean Corpuscular Hemoglobin 31.6 PG Mean Corpuscular Hemoglobin Concent 33.2 % Red Cell Distribution Width 14.6 % Platelet Count 314 TH/MM3 Mean Platelet Volume 7.9 FL Microbiology Date/Time Source Procedure Growth Status 12/05/17 07:00 Blood Peripheral Aerobic Blood Culture Pending Received 12/05/17 07:00 Blood Peripheral Anaerobic Blood Culture Pending Received 12/05/17 06:50 Blood Peripheral Aerobic Blood Culture Pending Received 12/05/17 06:50 Blood Peripheral Anaerobic Blood Culture Pending Received 12/02/17 17:00 Blood Peripheral Aerobic Blood Culture - Preliminary NO GROWTH IN 3 DAYS Resulted 12/02/17 17:00 Blood Peripheral Anaerobic Blood Culture - Preliminary NO GROWTH IN 3 DAYS Resulted 12/02/17 16:55 Blood Peripheral Aerobic Blood Culture - Preliminary S. Aureus Mrsa Resulted 12/02/17 16:55 Blood Peripheral Anaerobic Blood Culture - Preliminary NO GROWTH IN 3 DAYS Resulted 12/02/17 17:10 Nasal Washing Influenza Types A,B Antigen (LIZ) - Final NEGATIVE FOR FLU A AND B ANTIGEN.... Complete Imaging Last Impressions Foot X-Ray 12/03/17 0000 Signed Impressions: CONCLUSION: Extensive erosive arthritic changes first metatarsophalangeal joint, likely gou t. Chest X-Ray 12/02/17 1643 Signed Impressions: CONCLUSION: Bibasilar pulmonary infiltrates with suspected pulmonary hypertension. Head CT 12/02/17 0000 Signed Impressions: CONCLUSION: 1. Stable exam 2. No evidence of acute infarct, hemorrhage, mass or edema. Physical Exam CONSTITUTIONAL/GENERAL: This is an adequately nourished patient, in no apparent distress. TUBES/LINES/DRAINS: SKIN: No jaundice, rashes, or lesions. . Skin temperature appropriate. Not diaphoretic. CARDIOVASCULAR: Regular rate and rhythm without murmurs, gallops, or rubs. No JVD. Peripheral pulses symmetric. RESPIRATORY/CHEST: Symmetric, unlabored respirations. Clear to auscultation. Breath sounds equal bilaterally. + B/b dry crackles GASTROINTESTINAL: Abdomen soft, non-tender, nondistended. No hepato-splenomegaly , or palpable masses. No guarding. Bowel sounds present. GENITOURINARY: Without palpable bladder distension. No CVA tenderness MUSCULOSKELETAL: Extremities without clubbing, cyanosis, or edema. No joint tenderness or effusion noted. No calf tenderness. No mottling or clubbing. Well healed scar over R knee well healed scar over R forearm R hallux with near coplete resolution of edema, no active drainagem, so erythema noted minimla tenderness to palpation NEUROLOGICAL: Awake and alert. Motor and sensory grossly within normal limits. Follows commands. Clear speech . Moves all extremities. PSYCHIATRIC: somewhat agitated Assessment & Plan Remarks Sepsis in immunisuppresdsed pt low grade MRSA bacteremia source: ? R hallux, PNA, vs endovascular R hallux paronichium Immunosuppressed, on Remicade COPD/IPF [place] PNA - cont vancomycin - fu repeat BC - MRI w/o gadolinuium to r/o osteo 2 D echo - CT chest w/o contrast sputum clx if expectorates Eva Guajardo MD December 05, 2017 12:50
[2017-12-05] MEDS: ENOXAPARIN SODIUM 40 MG/0.4 ML SYRINGE SQ SCH (16:25)
--- NOTE | 2017-12-05 17:07 | RADRPT ---
EXAM DATE: 12/05/2017 4:58 PM EDT AGE/SEX: 67 years / Female INDICATIONS: Short of breath. CLINICAL DATA: This is the patient's initial encounter. Patient reports that signs and symptoms have been present for 1 day and indicates a pain score of 0/10. MEDICAL/SURGICAL HISTORY: Rheumatoid arthritis. Seizure None. RADIATION DOSE: 12.51 CTDI (mGy) COMPARISON: [facility] – [place], CHEST SINGLE AP, 12/02/2017. . TECHNIQUE: Multiple contiguous axial images were obtained through the chest without contrast. Image s were obtained in suspended respiration using multiple row detector helical technique. Using automa jovany exposure control and adjustment of the mA and/or kV according to patient size, radiation dose was kept as low as reasonably achievable to obtain optimal diagnostic quality images. FINDINGS: Lungs: The lungs are symmetrically aerated. No nodular densities are seen. There is patchy scarring and/or atelectasis in both lung bases. Mediastinum: The heart size is mildly prominent. There is a small amount of pericardial fluid. There is prominence of the main pulmonary artery in right left branch vessels. Coronary artery calcificati ons are present. There is no definite adenopathy. Pleurae: There is a small right pleural effusion and minimal left pleural effusion. Axillae: Unremarkable. Bony Structures: Osteopenia, degenerative change and scoliosis are present. The patient is status po st kyphoplasty in the lower thoracic spine. There is an old healed left-sided rib fracture. Miscellaneous: The examination was extended to include the upper abdomen, and both adrenal glands ar e normal in size and configuration. CONCLUSION: 1. Small right pleural effusion and minimal left pleural effusion. 2. Scarring and/or atelectasis at the lung bases. 3. Cardiomegaly and small pericardial effusion. 4. The main pulmonary artery and right left branch vessels are prominent which could indicate pulmon breanne hypertension. Electronically signed by: Thomas Del Toro MD 12/05/2017 5:05 PM EDT
[2017-12-05] MEDS: RESP: ALBUTEROL 2.5 MG/IPRATROPIUM 0.5 MG NEB (PRN) NEB (20:13)
[2017-12-05] MEDS ORDERED: PHARMACY ORDERED LAB ONE (20:45)
[2017-12-05] MEDS ORDERED: TEMAZEPAM 15 MG CAP PO PRN (21:00)
[2017-12-05] MEDS: BRIVARACETAM PO SCH (21:29)
[2017-12-05] MEDS: CALCIUM CARBONATE 500 MG CHEWABLE TAB CHEW SCH (21:29)
[2017-12-05] MEDS: LORazepam 1 MG TAB PO PRN (21:30)
[2017-12-05] MEDS: VANCOMYCIN INJ 1,250 MG in SODIUM CHLOR 0.9% 250 ML INJ 250 ML IV SCH ×2 (21:32→23:05)
--- NOTE | 2017-12-05 22:43 | RADRPT ---
EXAM DATE: 12/05/2017 10:35 PM EDT AGE/SEX: 67 years / Female INDICATIONS: Edema. Right great toe infection after a pedicure. CLINICAL DATA: This is the patient's subsequent encounter. Patient reports that signs and symptoms h ave been present for 4 - 6 days and indicates a pain score of 5/10. MEDICAL/SURGICAL HISTORY: . MRSA . Right knee replacement, ORIF external fixator Right Wrist COMPARISON: [facility] [place]OT RIGHT COMPLETE ([id number]), 12/03/2017. . TECHNIQUE: Multiplanar, multisequence MRI examination was performed without contrast. FINDINGS: Bones: There is normal signal intensity within the bony structures of the foot. Specifically, the dis malena phalanx of the first toe demonstrates no bone marrow edema in size the distal phalanx. Joint Spaces: There is prominent osteoarthritis involving the first metatarsal-phalangeal joint. Ther e is some degenerative changes at the first DIP joint. Tendons: The flexor tendons are grossly intact. Soft Tissues: There is some nonspecific edema adjacent to the first toe. No loculated fluid collectio ns are demonstrated. CONCLUSION: 1. There is no evidence of bone marrow edema in the distal phalanx of the first toe to suggest osteo myelitis. 2. There is some nonspecific edema in the soft tissues adjacent to the first toe. 3. There is prominent osteoarthritis involving the first metatarsal-phalangeal joint. Electronically signed by: Delbert Neumann MD 12/05/2017 10:41 PM EDT
[2017-12-06] VITALS (11 sets, daily range): BP systolic 140–176; BP diastolic 85–96; PULSE 99–110; RESP 18–22; TEMP 97–98.1; O2SAT 93–97
--- NOTE | 2017-12-06 00:26 | MB ---
cc: Ally Maldonado MD, Ruby Anne E MD Cosma,Amber SETH DATE: 12/05/2017 REFERRING PHYSICIAN: Dr. Amber De CHIEF COMPLAINT: Dr. De requests a consultation for Ms. Pierre regarding anemia of chronic disease. HISTORY OF PRESENT ILLNESS: Ms. Pierre is a 67-year-old woman, well known patient to Dr. Allen Macias. She has a history of interstitial fibrosis. It is debated whether this is secondary to her medication versus related to her rheumatoid arthritis. She has a history of rheumatoid arthritis and is on chronic immunosuppressive medication. She is quite happy with her response to her medication. She is able to raise her arms. She has no chronic rheumatoid ____ changes in her hands. She has fluid joints. Her course is complicated by seizure disorder managed by Dr. Sultana. She is currently on Briviact . She developed complications from the Briviact, mainly dizziness, fatigue, irritability and ataxia. She has some improvement of these symptoms with lorazepam, which she takes nightly. Her seizures are apparently controlled. She presented to the emergency room on 12/02/2017, brought in with mental status change, high temperature and sepsis picture. Given her chronic immunosuppressive therapy, she was admitted and promptly treated with antibiotic therapy. Source of fever was considered to be her right hallux. She is on immunosuppressive therapy with Remicade and methotrexate. She was treated with antibiotic therapy and recovered from the sepsis syndrome. She is doing well at present. Infectious disease was consulted. She has a low-grade MRSA infection. She is recommended to continue the vancomycin. She is pending an MRI with gadolinium to rule out osteomyelitis and a 2-D echo to rule out vegetation. During hospitalization, she was found to have a baseline hemoglobin 10.3. On the , her hemoglobin came down to 8.5. The day prior to her consultation, her hemoglobin was down to 8.7. She denies any overt bleeding. She has chronic anemia related to her chronic inflammatory disease and immunosuppressive therapy. She is concerned about reversible causes of anemia. For this reason, had requested a hematology consultation. She reports taking vitamin D at home. She had low calcium today, which was replaced. Her renal function has improved since her admission. She reports she has a good life. The rest of her review of systems is negative. PAST MEDICAL HISTORY: Seizure disorder, rheumatoid arthritis, interstitial pulmonary fibrosis, chronic anemia, vitamin D deficiency, anxiety. PAST SURGICAL HISTORY: Right wrist ORIF, tonsillectomy. FAMILY HISTORY: No family history of diabetes or coronary artery disease. SOCIAL HISTORY: Denies any tobacco, alcohol or illicit drug use. ALLERGIES: TO MULTIPLE MEDICATIONS INCLUDING ____, RISEDRONATE , GADODIAMIDE, GADOBENIC ACID. DIATRIZOATE MEGLUMINE CURRENT MEDICATIONS: 1. Seroquel 2. Deltasone 3. Calcium Carbonate 4. Restoril. 5. Enoxaparin. 6. Albuterol. 7. Tessalon Perles 8. Vancomycin 9. Briviact 10. Lorazepam. 11. Duo Nebs 12. [place] p.r.n. PHYSICAL EXAMINATION: VITAL SIGNS: Temperature 97.1, heart rate 104, respiratory rate 20, blood pressure 165/90, saturation 98%. GENERAL: Ms. Pierre is a well-developed, well-nourished, elderly woman in no acute distress at rest. She becomes short of breath with any small activity. HEENT: Pupils are round, reactive to light and accommodation. Oropharynx is clear. NECK: Supple. LUNGS: With diffuse inspiratory and expiratory wheezing. CARDIOVASCULAR: Reveals a tachycardia at baseline. ABDOMEN: Benign. LOWER EXTREMITIES: With slight asymmetry, right leg more prominent than the left. The right knee has a knee replacement surgery scar. LABORATORY DATA: Significant for a calcium of 7.0, albumin is 6.3. CBC: Hemoglobin 8.7. ASSESSMENT AND PLAN: Ms. 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 Hematology/Oncology is consulted for the normocytic anemia, which has worsened during her hospitalization. We discussed checking stool for Hemoccult. We will rule out reversible causes of the iron deficiency, such as nutritional deficiencies B12, folic acid and iron. This seems unlikely. It is more likely that the anemia is due to her chronic immunosuppressive medication. An LDH and reticulocyte count will be obtained. Peripheral smear will be reviewed. Ms. Pierre's questions were answered to her satisfaction. In light of her symptoms due to the anemia from her underlying pulmonary fibrosis, we discussed transfusion of a unit of packed red cells if her hemoglobin falls below 8 or more acute symptoms. MD SEPIDEH Abdul/Shahram , 09:40 PM , 10:23 PM
[2017-12-06] MEDS: ALBUTEROL SULFATE 90 MCG/ACT HFA 8 GM INHALER INH PRN ×4 (01:10→23:29)
[2017-12-06] MEDS: CHLORHEXIDINE GLUCONATE 2 % 1 PACK (2 CLOTHS) TOP SCH (04:00)
[2017-12-06 04:04] LABS: AUTOMATED NEUTROPHIL # 4.6 TH/MM3 (1.8-7.7); BASOPHIL # 0.1 TH/MM3 (0-0.2); BASOPHIL % 0.8 % (0.0-2.0); EOSINOPHIL # 0.1 TH/MM3 (0-0.4); EOSINOPHIL % 1.8 % (0.0-4.0); HEMOGLOBIN 7.5 GM/DL (11.6-15.3); LYMPH % 24.8 % (9.0-44.0); LYMPHOCYTE # 1.8 TH/MM3 (1.0-4.8); MEAN CELL VOLUME 92.5 FL (80.0-100.0); MEAN CORPUSCULAR HEMOGLOBIN 33.1 PG (27.0-34.0); MEAN CORPUSCULAR HGB CONC 35.8 % (32.0-36.0); MEAN PLATELET VOLUME 7.3 FL (7.0-11.0); MONOCYTE # 0.6 TH/MM3 (0-0.9); NEUT % 63.6 % (16.0-70.0); PLATELET COUNT 256 TH/MM3 (150-450); RED BLOOD COUNT 2.27 MIL/MM3 (4.00-5.30); RED CELL DISTRIBUTION WIDTH 14.7 % (11.6-17.2); WHITE BLOOD COUNT 7.2 TH/MM3 (4.0-11.0)
[2017-12-06 04:21] LABS: IRON (FE) 35 MCG/DL (50-170)
[2017-12-06 04:28] LABS: BICARBONATE 21.3 MEQ/L (21.0-32.0); CALCIUM 8.5 MG/DL (8.5-10.1); CREATININE 0.88 MG/DL (0.50-1.00)
[2017-12-06 04:46] LABS: % SATURATION IRON PROFILE 18.9 % (20-50); FERRITIN 468 NG/ML (8-252); FOLATE 13.7 NG/ML (3.1-17.5); TOTAL IRON BINDING CAPACITY 185 MCG/DL (250-450)
[2017-12-06 05:35] LABS: RETIC # 42.8 MIL/L (20.0-150.0); RETIC % 1.8 % (0.4-3.0)
[2017-12-06] MEDS ORDERED: ACETAMINOPHEN 325 MG TAB PO PRN (06:00)
[2017-12-06] MEDS ORDERED: SODIUM CHLOR 0.9% 250 ML INJ 250 ML IV ONE (06:00)
[2017-12-06] MEDS ORDERED: diphenhydrAMINE HCL 25 MG CAP PO PRN (06:00)
[2017-12-06] MEDS: ACETAMINOPHEN/HYDROcodone 325 MG/7.5 MG TAB PO PRN ×3 (06:18→20:49)
[2017-12-06] MEDS: RESP: ALBUTEROL 2.5 MG/IPRATROPIUM 0.5 MG NEB (SCH) NEB ×3 (07:42→19:34)
[2017-12-06] MEDS: BENZONATATE 100 MG CAP PO SCH ×2 (08:49→20:49)
[2017-12-06] MEDS: CALCIUM CARBONATE 500 MG CHEWABLE TAB CHEW SCH ×2 (08:50→20:51)
[2017-12-06] MEDS: predniSONE 20 MG TAB PO SCH (08:50)
[2017-12-06] MEDS: DOCUSATE SODIUM 50 MG/SENNA 8.6 MG TAB PO SCH ×2 (08:51→20:49)
[2017-12-06] MEDS: SODIUM CHLORIDE 0.9% FLUSH 10 ML FLUSH IV FLUSH SCH ×2 (08:51→21:03)
[2017-12-06] MEDS: QUEtiapine FUMARATE 25 MG TAB PO SCH ×2 (08:53→11:52)
--- NOTE | 2017-12-06 09:04 | HHI.PR ---
Subjective Remarks Wants to go home, however patien tis not cleared yet by ID Also plan for blood transfusion today Still with sob with exertion, however sattign well on room air. With anxiety. No n/v/d/c. Denies chest pain Objective Vitals Vital Signs Date Time Temp Pulse Resp B/P (MAP) Pulse Ox O2 Delivery O2 Flow Rate FiO2 12/06/17 08:00 97.6 108 18 161/94 (116) 94 12/06/17 07:47 94 21 12/06/17 04:00 98.0 99 18 146/85 (105) 93 12/06/17 00:00 97.0 101 18 157/96 (116) 97 12/05/17 20:16 98 Nasal Cannula 1.00 12/05/17 20:00 98.0 106 20 176/91 (119) 97 12/05/17 16:00 97.1 104 20 165/90 (115) 95 12/05/17 12:00 97.6 108 19 174/94 (120) 96 12/05/17 10:43 103 I/O 12/05/17 12/05/17 12/05/17 12/06/17 12/06/17 12/06/17 07:00 15:00 23:00 07:00 15:00 23:00 Intake Total 500 ml 2840 ml 240 ml Output Total 3000 ml 1000 ml 2200 ml Balance -2500 ml -1000 ml 640 ml 240 ml Intake Oral 240 ml 2840 ml 240 ml IV Total 260 ml Output Urine Total 3000 ml 1000 ml 2200 ml # Bowel Movements 2 Result Diagram: 12/06/17 0349 12/06/17 0349 Imaging Last Impressions Foot MRI 12/05/17 0000 Signed Impressions: CONCLUSION: 1. There is no evidence of bone marrow edema in the distal phalanx of the firs t toe to suggest osteomyelitis. 2. There is some nonspecific edema in the soft tissues adjacent to the first t oe. 3. There is prominent osteoarthritis involving the first metatarsal-phalangeal joint. Chest CT 12/05/17 0000 Signed Impressions: CONCLUSION: 1. Small right pleural effusion and minimal left pleural effusion. 2. Scarring and/or atelectasis at the lung bases. 3. Cardiomegaly and small pericardial effusion. 4. The main pulmonary artery and right left branch vessels are prominent which could indicate pulmonary hypertension. Foot X-Ray 12/03/17 0000 Signed Impressions: CONCLUSION: Extensive erosive arthritic changes first metatarsophalangeal joint, likely gou t. Chest X-Ray 12/02/17 1643 Signed Impressions: CONCLUSION: Bibasilar pulmonary infiltrates with suspected pulmonary hypertension. Head CT 12/02/17 0000 Signed Impressions: CONCLUSION: 1. Stable exam 2. No evidence of acute infarct, hemorrhage, mass or edema. Objective Remarks GENERAL: 67 yo F, with some sob, wheezing. Very anxious. Pressured speech. CARDIOVASCULAR: Regular rate and rhythm. RESPIRATORY: No accessory muscle use. With SOB and wheezing. Diminished BS at the bases. GASTROINTESTINAL: Abdomen soft, non-tender, nondistended. Hepatic and splenic margins not palpable. MUSCULOSKELETAL: Extremities without clubbing, cyanosis, or edema. No obvious deformities. NEUROLOGICAL: Awake and alert. No obvious cranial nerve deficits. Normal speech. A/P Problem List: (1) Sepsis ICD Code: A41.9 - Sepsis, unspecified organism Status: Acute (2) PNA (pneumonia) ICD Code: J18.9 - Pneumonia, unspecified organism (3) Encephalopathy ICD Code: G93.40 - Encephalopathy, unspecified (4) BARB (acute kidney injury) ICD Code: N17.9 - Acute kidney failure, unspecified Assessment and Plan Sepsis 2/2 PNA and likely bacteremia Sepsis element resolved X ray right foot suggestive of gout PNA-continue vanc/zosyn MRSA bacteremia 1/4 bottles so far; Cconsult ID, appreciate recs Continue IV Vanc Acute on chronic respiratory failure The pt has ILD/ COPD. She is not on home oxygen. CXR w/ bilateral infiltrates. 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 short course of prednisone. encourage ambulation. Needs home oxygen walk test prior to discharge. Add IS and acapella Encephalopathy resolved BARB-improving w/ IVFs. Monitor kidney function. Avoid nephrotoxins. RA On Remicade and methotrexate as an outpt. continue outpt regimen. Broken ribs/ vertebrae The pt has osteoporosis. The pt recently had a kyphoplasty and is in chronic pain. pain control. PT eval. Anemia S/t RA. HGB so far stable Patient is requesting hematology consult. Consult hematology Discussed with the patient, nurse TEVIN pl;an patient with MRSA bacteremia DC when cleared by ID Problem Qualifiers (1) Sepsis: Qualified Codes: A41.9 - Sepsis, unspecified organism Amber De MD December 06, 2017 09:04
--- NOTE | 2017-12-06 10:31 | PD.ONC.PN ---
Subjective Subjective Remarks Afebrile overnight. Patient anxious. wants to know when she can go home. wants to have a blood transfusion. states she feels dizzy. Objective Data Date Time Temp Pulse Resp B/P (MAP) Pulse Ox O2 Delivery O2 Flow Rate FiO2 12/06/17 08:00 97.6 108 18 161/94 (116) 94 12/06/17 07:47 94 21 12/06/17 04:00 98.0 99 18 146/85 (105) 93 12/06/17 00:00 97.0 101 18 157/96 (116) 97 12/05/17 20:16 98 Nasal Cannula 1.00 12/05/17 20:00 98.0 106 20 176/91 (119) 97 12/05/17 16:00 97.1 104 20 165/90 (115) 95 12/05/17 12:00 97.6 108 19 174/94 (120) 96 12/05/17 10:43 103 12/06/17 12/06/17 12/06/17 07:00 15:00 23:00 Intake Total 240 ml Balance 240 ml Result Diagram: 12/06/17 0349 12/06/17 0349 Laboratory Results Laboratory Tests Test 12/05/17 23:00 12/06/17 03:49 Vancomycin Level Trough 16.2 MCG/ML White Blood Count 7.2 TH/MM3 Red Blood Count 2.27 MIL/MM3 Hemoglobin 7.5 GM/DL Hematocrit 21.0 % Mean Corpuscular Volume 92.5 FL Mean Corpuscular Hemoglobin 33.1 PG Mean Corpuscular Hemoglobin Concent 35.8 % Red Cell Distribution Width 14.7 % Platelet Count 256 TH/MM3 Mean Platelet Volume 7.3 FL Neutrophils (%) (Auto) 63.6 % Lymphocytes (%) (Auto) 24.8 % Monocytes (%) (Auto) 9.0 % Eosinophils (%) (Auto) 1.8 % Basophils (%) (Auto) 0.8 % Neutrophils # (Auto) 4.6 TH/MM3 Lymphocytes # (Auto) 1.8 TH/MM3 Monocytes # (Auto) 0.6 TH/MM3 Eosinophils # (Auto) 0.1 TH/MM3 Basophils # (Auto) 0.1 TH/MM3 CBC Comment DIFF FINAL Differential Comment Reticulocyte Count 1.8 % Absolute Reticulocyte Count 42.8 MIL/L Blood Urea Nitrogen 11 MG/DL Creatinine 0.88 MG/DL Random Glucose 77 MG/DL Calcium Level 8.5 MG/DL Lactate Dehydrogenase 189 U/L Sodium Level 145 MEQ/L Potassium Level 3.3 MEQ/L Chloride Level 114 MEQ/L Carbon Dioxide Level 21.3 MEQ/L Anion Gap 10 MEQ/L Estimat Glomerular Filtration Rate 64 ML/MIN Iron Level 35 MCG/DL Total Iron Binding Capacity 185 MCG/DL Percent Iron Saturation 18.9 % Ferritin 468 NG/ML Vitamin B12 Level 1109 PG/ML 25-Hydroxy Vitamin D Total 28.4 ng/ML Folate 13.7 NG/ML Culture Results Microbiology Date/Time Source Procedure Growth Status 12/05/17 07:00 Blood Peripheral Aerobic Blood Culture Pending Received 12/05/17 07:00 Blood Peripheral Anaerobic Blood Culture Pending Received 12/05/17 06:50 Blood Peripheral Aerobic Blood Culture Pending Received 12/05/17 06:50 Blood Peripheral Anaerobic Blood Culture Pending Received Administered Medications Medications (Trade) Dose Ordered Sig/Zander Route PRN Reason Start Time Stop Time Status Last Admin Dose Admin Sodium Chloride (NS Flush) 2 ml BID IV FLUSH 12/02/17 21:00 12/06/17 08:51 Senna/Docusate Sodium (Caren-Colace) 1 tab BID PO 12/02/17 21:00 12/03/17 19:32 Chlorhexidine Gluconate (Chlorhexidine 2% Cloth) 3 pack Taper DAILY@04 TOP 12/03/17 04:00 11/29/18 03:59 12/03/17 04:00 Albuterol/ Ipratropium (Duoneb Neb) 1 ampule Q6HR WHILE AWAKE NEB NEB 12/03/17 09:30 12/06/17 07:42 Acetaminophen/ Hydrocodone Bitart ([place] 7.5-325 Mg) 1 tab Q4H PRN PO pain 3-10 12/03/17 09:30 12/06/17 06:18 Lorazepam (Ativan) 1 mg HS PRN PO insomnia 12/03/17 09:45 12/05/17 21:30 Vancomycin HCl 1250 mg/Sodium Chloride 262.5 ml @ 250 mls/hr Q24H IV 12/03/17 21:00 12/05/17 23:05 Patient Own Medication PT OWN MED: BRIVIACT (BRIVARACET... HS PO 12/03/17 21:00 12/05/17 21:29 Benzonatate (Tessalon) 100 mg BID PO 12/04/17 12:00 12/06/17 08:49 Albuterol/ Ipratropium (Duoneb Neb) 1 ampule Q4HR NEB PRN NEB SOB/WHEEZING 12/05/17 05:30 12/05/17 20:13 Calcium Carbonate (Tums Chew) 500 mg Q12HR CHEW 12/05/17 21:00 12/08/17 20:59 12/06/17 08:50 Albuterol Sulfate (Proair Hfa Inh) 2 puff Q6H PRN INH sob/wheezing 12/05/17 15:30 12/06/17 01:10 Enoxaparin Sodium (Lovenox Inj) 40 mg Q24H SQ 12/05/17 16:00 12/05/17 16:25 Prednisone (Deltasone) 40 mg DAILY PO 12/06/17 09:00 12/10/17 08:59 12/06/17 08:50 Objective Remarks GENERAL: Middle aged female, sitting up in bed, anxious SKIN: Warm and dry. HEAD: Normocephalic. EYES: No injection or drainage. NECK: Supple, trachea midline. CARDIOVASCULAR: +S1/S2, tachy RESPIRATORY: Breath sounds equal bilaterally. No accessory muscle use. GASTROINTESTINAL: Abdomen soft, non-tender, nondistended. EXTREMITIES: No cyanosis, or edema. MUSCULOSKELETAL: Adequate muscle tone. NEUROLOGICAL: No obvious focal deficit. Awake, alert, and oriented x3. Assessment/Plan Problem List: (1) Anemia of other chronic disease ICD Codes: D63.8 - Anemia in other chronic diseases classified elsewhere Plan: --stool occult pending. --b12 WNL --iron studies more consistent with anemia of chronic disease. --LDH WNL Assessment 67y/o female with anemia of chronic disease admitted with AMS, concern for sepsis. history of interstitial fibrosis. rheumatoid arthritis on chronic immunosuppressive medication. h/o seizure disorder Plan 1. monitor CBC 2. await stool occult blood testing. 3. agree with 1 unit pRBC Attending Statement The exam, history, and the medical decision-making described in the above note were completed with the assistance of the mid-level provider. I reviewed and agree with the findings presented. I attest that I had a [id number] encounter with the patient on the same day, and personally performed and documented my assessment and findings in the medical record. Receiving blood, tolerated well. Discussed vitamin D deficiency, unlikely contributor to anemia. Stool for heme occult collected, no melena or BRBPR. Discussed cont fu w/ heme as out pt. B12 replete, unable to exclude iron deficiency. Kailyn Tompkins December 06, 2017 10:31 Ally Maldonado MD December 06, 2017 17:01
--- NOTE | 2017-12-06 11:47 | PD.PSY.CON ---
Provisional Diagnosis Admission Date December 02, 2017 at 18:43 [place] I. Adjustment disorder with anxiety, r/o medication induced anxiety [place] II. Deferred [place] III. COPD, rheumatoid arthritis, epilepsia, osteopenia, pneumonia [place] IV. Multiple chronic medical conditions, social stressors [place] V. 53 History of Present Illness Service Psychiatry Consult Requested By Medical team Reason for Consult Anxiety Primary Care Physician Joy Gonzalez M.D. HPI The patient is a 67-year-old woman, domiciled alone in [place], , unemployed, mother of 2 adults kids, without no previous psychiatric history, no previous suicide attempts, no previous psychiatric hospitalizations , she denies the use of drugs and alcohol, with medical he is of Rheumatoid Arthritis, Seizure Disorder, COPD, osteopenia, who was brought to the ER by EMS for AMS and fever. Per report, patient was noted to be confused w/ temp of 104. On arrival, patient significantly agitated, not answering questions appropriately, requiring Ativan 0.5mg IV. On arrival, BP 143/75, HR 125, O2 sat 97% on RA, Temp 101.2. WBC 10.2. Creatinine 1.48, previously 0.91 on 2017. Troponin negative. Lactic Acid 1.0. UA with small LE. CXR with bibasilar pulmonary infiltrates with suspected pulmonary hypertension. CT Head with no acute findings. S/p Vanc/Zosyn in ER. The patient was placed in Seroquel 25 mg twice daily to help with delirium. She was admitted due to Sepsis, Sepsis, unspecified organ PNA (pneumonia), acute encephalitis. Consulted to psychiatry due to symptoms of anxiety. EMR was reviewed. The case was also discussed personally with . On psychiatric evaluation the patient is calm, cooperative and pleasant. Initially she expressed surprise of seeing psych. Patient states that she does not have any psychiatric problem, but with redirection and reassurance she opened up. Patient reports that the reason she has been anxious is because she does not like hospitals "and I have not been doing so well". Patient reported that she has been having difficulty breathing, she has not been feeling well, and that is reason enough to be anxious. She also says that she rents rooms in her house , one of her tenants is a schizophrenic person and she has been anxious about leaving her house along. However, the patient reports that she feels much better now. She reports that last night she is slept well with the temazepam 30 mg. Her anxiety usually responds well to Ativan when she needs it. She denies symptoms of depression, denies anhedonia, denies hopelessness, denies helplessness, denies worthlessness, she denies suicidal and homicidal ideation, she denies visual and auditory hallucinations. The patient is fully oriented 3 , no attention deficit, no fluctuation of consciousness, no delirium, no paranoia, no delusions, no agitation, no aggressive behavior present. Patient is completely logical, coherent and relevant. She denies the use of illegal drugs and alcohol. Review of Systems Constitutional: DENIES: Diaphoretic episodes, Fatigue, Fever, Weight gain, Weight loss, Chills, Dizziness, Change in appetite, Night Sweats Endocrine: DENIES: Abnorml menstrual pattern, Heat/cold intolerance, Polydipsia , Polyuria, Polyphagia Eyes: DENIES: Blurred vision, Diplopia, Eye inflammation, Eye pain, Vision loss , Photosensitivity, Double Vision Ears, nose, mouth, throat: DENIES: Tinnitus, Hearing loss, Vertigo, Nasal discharge, Oral lesions, Throat pain, Hoarseness, Ear Pain, Running Nose, Epistaxis, Sinus Pain, Toothache, Odynophagia Respiratory: DENIES: Apneas, Cough, Snoring, Wheezing, Hemoptysis, Sputum production, Shortness of breath Cardiovascular: DENIES: Chest pain, Palpitations, Syncope, Dyspnea on Exertion , PND, Lower Extremity Edema, Orthopnea, Claudication Gastrointestinal: DENIES: Abdominal pain, Black stools, Bloody stools, Constipation, Diarrhea, Nausea, Vomiting, Difficulty Swallowing, Anorexia Genitourinary: DENIES: Abnormal vaginal bleeding, Dysmenorrhea, Dyspareunia, Sexual dysfunction, Urinary frequency, Urinary incontinence, Urgency, Hematuria , Dysuria, Nocturia, Vaginal discharge Musculoskeletal: DENIES: Joint pain, Muscle aches, Stiffness, Joint Swelling, Back pain, Neck pain Integumentary: DENIES: Abnormal pigmentation, Pruritus, Rash, Nail changes, Breast masses, Breast skin changes, Nipple discharge Hematologic/lymphatic: DENIES: Bruising, Lymphadenopathy Neurologic: DENIES: Abnormal gait, Headache, Localized weakness, Paresthesias, Seizures, Speech Problems, Tremor, Poor Balance Psychiatric: COMPLAINS OF: Anxiety, DENIES: Confusion, Mood changes, Depression , Hallucinations, Agitation, Suicidal Ideation, Homicidal Ideation, Delusions Past Family Social History Coded Allergies: bertholletia excelsa (Unverified Allergy, Intermediate, MOUTH SWELLING; RESP PROBLEMS, 12/02/17) diatrizoate meglumine (Unverified Allergy, Intermediate, SEVERE HIVES, ) gadobenic acid (Unverified Allergy, Intermediate, SEVERE HIVES, 12/02/17) gadodiamide (Unverified Allergy, Intermediate, SEVERE HIVES, 12/02/17) gadoteridol (Unverified Allergy, Intermediate, SEVERE HIVES, 12/02/17) iodixanol (Unverified Allergy, Intermediate, SEVERE HIVES, 12/02/17) iohexol (Unverified Allergy, Intermediate, SEVERE HIVES, 12/02/17) risedronate sodium (Unverified Allergy, Intermediate, SEVERE CHILLS, ) tree nut (Unverified Allergy, Intermediate, MOUTH SWELLING; RESP PROBLEMS , 12/02/17) walnut (Unverified Allergy, Intermediate, MOUTH SWELLING; DIFFICULT RESP. , 12/02/17) Reported Medications Lorazepam (Ativan) 1 Mg Tab, 1 MG PO HS, TAB 0 Refills 12/02/17 Benzonatate (Tessalon Perles) 100 Mg Cap, 100 MG PO TID Y for COUGH, CAP 0 Refills 12/02/17 Brivaracetam (Briviact) 50 Mg Tab, 50 MG PO HS for Control Seizures, TAB 0 Refills 12/02/17 Hydroxyzine HCl (Hydroxyzine HCl) 50 Mg Tab, 50 MG PO TID, TAB 0 Refills 08/15/17 Discontinued Reported Medications Lamotrigine (Lamotrigine) 200 Mg Tab, 200 MG PO BID for Control Seizures, #60 TAB 0 Refills 08/15/17 Doxycycline Hyclate (Doxycycline Hyclate) 100 Mg Cap, 100 MG PO BID for Infection, #20 CAP 0 Refills 08/15/17 [Organic Wheat Grass] No Conflict Check, PO DAILY 10/07/10 [Calcium/Mag/Zinc] No Conflict Check, 1 TAB PO BID 10/07/10 [Fiber Supp] No Conflict Check, 2 CAP PO BID 10/07/10 [Boniva ] No Conflict Check, DIRECTED I.V. Q 3 MONTHS 10/07/10 [Methotrexate] (Methotrexate) No Conflict Check, IM WEEKLY 50MG/2ML ; PT USES 0.6 CC ONCE WEEKLY 10/07/10 Discontinued Scripts Levofloxacin (Levaquin) 500 Mg Tablet, 500 MG PO DAILY for Infection for 5 Days , #5 TAB 0 Refills Prov:Stewart Marx MD 08/16/17 [Nystatin Liq] 5 ML SUSP No Conflict Check, 5 ML SWISH-SWAL QID for oral for 5 Days Prov:Stewart Marx MD 08/16/17 Current Medications Medications (Trade) Dose Ordered Sig/Zander Route Start Time Stop Time Status Last Admin (NS Flush) 2 ml UNSCH PRN IV FLUSH 12/02/17 18:30 (NS Flush) 2 ml BID IV FLUSH 12/02/17 21:00 12/06/17 08:51 (Reglan Inj) 5 mg Q6H PRN IV PUSH 12/02/17 18:30 (Narcan Inj) 0.4 mg UNSCH PRN IV PUSH 12/02/17 18:30 (Caren-Colace) 1 tab BID PO 12/02/17 21:00 12/03/17 19:32 (Milk Of Magnesia Liq) 30 ml Q12H PRN PO 12/02/17 18:30 (Senokot) 17.2 mg Q12H PRN PO 12/02/17 18:30 (Dulcolax Supp) 10 mg DAILY PRN RECTAL 12/02/17 18:30 (Lactulose Liq) 30 ml DAILY PRN PO 12/02/17 18:30 Pharmacy Profile Note 0 ml @ 0 mls/hr UNSCH OTHER 12/02/17 18:30 ([facility] [place] [facility]) 1 Q361D XX 12/02/17 20:45 (Chlorhexidine 2% Cloth) 3 pack Taper DAILY@04 TOP 12/03/17 04:00 11/29/18 03:59 12/03/17 04:00 (Chlorhexidine 2% Cloth) 3 pack UNSCH PRN TOP 12/02/17 20:45 (Duoneb Neb) 1 ampule Q6HR WHILE AWAKE NEB NEB 12/03/17 09:30 12/06/17 07:42 ([place] 7.5-325 Mg) 1 tab Q4H PRN PO 12/03/17 09:30 12/06/17 06:18 (Ativan) 1 mg HS PRN PO 12/03/17 09:45 12/05/17 21:30 Vancomycin HCl 1250 mg/Sodium Chloride 262.5 ml @ 250 mls/hr Q24H IV 12/03/17 21:00 12/05/17 23:05 Patient Own Medication PT OWN MED: BRIVIACT (BRIVARACET... HS PO 12/03/17 21:00 12/05/17 21:29 (Tessalon) 100 mg BID PO 12/04/17 12:00 12/06/17 08:49 (Duoneb Neb) 1 ampule Q4HR NEB PRN NEB 12/05/17 05:30 12/05/17 20:13 (Tums Chew) 500 mg Q12HR CHEW 12/05/17 21:00 12/08/17 20:59 12/06/17 08:50 (SEROquel) 25 mg BID@09,12 PO 12/06/17 09:00 (Proair Hfa Inh) 2 puff Q6H PRN INH 12/05/17 15:30 12/06/17 01:10 (Restoril) 30 mg HS PRN PO 12/05/17 21:00 (Lovenox Inj) 40 mg Q24H SQ 12/05/17 16:00 12/05/17 16:25 (Deltasone) 40 mg DAILY PO 12/06/17 09:00 12/10/17 08:59 12/06/17 08:50 Sodium Chloride 250 ml @ 15 mls/hr ONCE ONCE IV 12/06/17 06:00 12/06/17 22:39 (Tylenol) 650 mg Q4H PRN PO 12/06/17 06:00 (Benadryl) 25 mg Q4H PRN PO 12/06/17 06:00 Family Psych History No family psychiatric history Social History Patient was born and raised in [place], she losing [facility], she lives with tenants, she is mother of 2 kids, one is 49 and another 47, unemployed, , 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 2) No previous psychiatric history Physical Exam No tremors, no EPS, no withdrawal symptoms, no psychomotor agitation or retardation, no gait disturbance Vital Signs Vital Signs Date Time Temp Pulse Resp B/P (MAP) Pulse Ox O2 Delivery O2 Flow Rate FiO2 12/06/17 08:00 97.6 108 18 161/94 (116) 94 12/06/17 07:47 21 12/05/17 20:16 Nasal Cannula 1.00 I/O 12/06/17 12/06/17 12/07/17 08:00 16:00 00:00 Intake Total 240 ml Balance 240 ml Lab Results Test 12/05/17 23:00 12/06/17 03:49 Vancomycin Level Trough 16.2 MCG/ML White Blood Count 7.2 TH/MM3 Red Blood Count 2.27 MIL/MM3 Hemoglobin 7.5 GM/DL Hematocrit 21.0 % Mean Corpuscular Volume 92.5 FL Mean Corpuscular Hemoglobin 33.1 PG Mean Corpuscular Hemoglobin Concent 35.8 % Red Cell Distribution Width 14.7 % Platelet Count 256 TH/MM3 Mean Platelet Volume 7.3 FL Neutrophils (%) (Auto) 63.6 % Lymphocytes (%) (Auto) 24.8 % Monocytes (%) (Auto) 9.0 % Eosinophils (%) (Auto) 1.8 % Basophils (%) (Auto) 0.8 % Neutrophils # (Auto) 4.6 TH/MM3 Lymphocytes # (Auto) 1.8 TH/MM3 Monocytes # (Auto) 0.6 TH/MM3 Eosinophils # (Auto) 0.1 TH/MM3 Basophils # (Auto) 0.1 TH/MM3 CBC Comment DIFF FINAL Differential Comment Reticulocyte Count 1.8 % Absolute Reticulocyte Count 42.8 MIL/L Blood Urea Nitrogen 11 MG/DL Creatinine 0.88 MG/DL Random Glucose 77 MG/DL Calcium Level 8.5 MG/DL Lactate Dehydrogenase 189 U/L Sodium Level 145 MEQ/L Potassium Level 3.3 MEQ/L Chloride Level 114 MEQ/L Carbon Dioxide Level 21.3 MEQ/L Anion Gap 10 MEQ/L Estimat Glomerular Filtration Rate 64 ML/MIN Iron Level 35 MCG/DL Total Iron Binding Capacity 185 MCG/DL Percent Iron Saturation 18.9 % Ferritin 468 NG/ML Vitamin B12 Level 1109 PG/ML 25-Hydroxy Vitamin D Total 28.4 ng/ML Folate 13.7 NG/ML Date/Time Source Procedure Growth Status 12/05/17 07:00 Blood Peripheral Aerobic Blood Culture - Preliminary NO GROWTH IN 1 DAY Resulted 12/05/17 07:00 Blood Peripheral Anaerobic Blood Culture - Preliminary NO GROWTH IN 1 DAY Resulted 12/02/17 17:10 Nasal Washing Influenza Types A,B Antigen (LIZ) - Final NEGATIVE FOR FLU A AND B ANTIGEN.... Complete Mental Status Examination Appearance: Appropriate Consciousness: Alert Orientation: x4 Motor Activity: Normal gait Speech: Unremarkable Language: Adequate Fund of Knowledge: Adequate Attention and Concentration: Adequate Memory: Unremarkable Mood: Appropriate Affect: Appropriate Thought Process & Associations: Intact Thought Content: Appropriate Hallucination Type: None Delusion Type: None Suicidal Ideation: No Suicidal Plan: No Suicidal Intention: No Homicidal Ideation: No Homicidal Plan: No Homicidal Intention: No Insight: Adequate Judgment: Adequate Assessment & Plan Problem List: (1) Adjustment disorder with anxiety ICD Codes: F43.22 - Adjustment disorder with anxiety Assessment & Plan: On psychiatric evaluation today the patient reports occasional anxiety during this hospitalization, also she has had some difficulty to sleep at night and episodic confusion. At this moment she denies mood symptoms, denies acute anxiety, denies brenda and psychosis. She denies suicidal and homicidal ideation, she denies visual and auditory hallucinations. Patient reports that her anxiety has been strictly secondary to her difficulty breathing, the fact that she is hospitalized and her home is alone with her tenants. The patient also has been described as delirious initially, she was placed in Seroquel 25 mg twice daily, but she does not present any confusion, fluctuation of consciousness, attention deficit, disorientation at this moment. Patient is on steroids that could certainly induced anxiety, mood symptoms and insomnia. Will DC Seroquel since patient now is at baseline, can continue temazepam 30 mg HS PRN insomnia. Will order Ativan 2 mg po Q/o hours PRn anxiety. She does not meet criteria for involuntary psychiatric admission. Brief supportive psychotherapy, motivational psych education provided. Assessment & Plan Estimated LOS: Toribio Granda MD December 06, 2017 11:47
--- NOTE | 2017-12-06 11:51 | ECHRPT ---
Indication: VEGETATIONS CONCLUSIONS Normal left ventricular size. Wall thickness is normal. The right ventricular systoilc function is mildly decreased. dilated proximal ascending aorta. Moderate thickening of the mitral valve leaflets. Daig-[id number] mitral valve regurgitation. Mild mitral annular calcification. Aortic valve sclerosis is present. Trace aortic valve regurgitation. There is trace tricuspid valve regurgitation. The pulmonary valve is not well visualized. There is a small pericardial effusion present. BP: / HR: Rhythm: Technical Quality: FINDINGS LEFT VENTRICLE Normal left ventricular size. Wall thickness is normal. The left ventricular systolic function is normal with an estimated ejection fraction in the range of 60-65%. RIGHT VENTRICLE The right ventricular systoilc function is mildly decreased. LEFT ATRIUM The left atrial size is normal. RIGHT ATRIUM The right atrial size is normal. ATRIAL SEPTUM Normal atrial septal thickness without atrial level shunting by limited color doppler interrogation. AORTA dilated proximal ascending aorta. MITRAL VALVE Moderate thickening of the mitral valve leaflets. Pnzc-ud-pittvrqq mitral valve regurgitation. Mild mitral annular calcification. AORTIC VALVE Aortic valve sclerosis is present. Trileaflet aortic valve. Trace aortic valve regurgitation. TRICUSPID VALVE There is trace tricuspid valve regurgitation. PULMONARY VALVE The pulmonary valve is not well visualized. VESSELS The inferior vena cava is normal in size. PERICARDIUM There is a small pericardial effusion present. Saturnino Dyson MD, FACC (Electronically Signed) Final Date:06 Dec 2017 11:50
[2017-12-06] MEDS: ENOXAPARIN SODIUM 40 MG/0.4 ML SYRINGE SQ SCH (17:26)
[2017-12-06] MEDS: CHOLECALCIFEROL (VIT D3) 5000 UNIT CAP PO SCH (17:30)
[2017-12-06 18:49] LABS: HEMATOCRIT 28.3 % (35.0-46.0); HEMOGLOBIN 9.5 GM/DL (11.6-15.3)
[2017-12-06] MEDS: RESP: ALBUTEROL 2.5 MG/IPRATROPIUM 0.5 MG NEB (PRN) NEB (20:52)
[2017-12-06] MEDS: LORazepam 1 MG TAB PO PRN (21:02)
[2017-12-06] MEDS: VANCOMYCIN INJ 1,250 MG in SODIUM CHLOR 0.9% 250 ML INJ 250 ML IV SCH (21:02)
[2017-12-06] MEDS: BRIVARACETAM PO SCH (21:03)
[2017-12-07] VITALS (8 sets, daily range): BP systolic 142–167; BP diastolic 80–98; PULSE 91–112; RESP 17–22; TEMP 97.9–98.2; O2SAT 94–97
[2017-12-07] MEDS: ACETAMINOPHEN/HYDROcodone 325 MG/7.5 MG TAB PO PRN ×4 (01:13→20:20)
[2017-12-07] MEDS: CHLORHEXIDINE GLUCONATE 2 % 1 PACK (2 CLOTHS) TOP SCH (02:04)
[2017-12-07] MEDS: ALBUTEROL SULFATE 90 MCG/ACT HFA 8 GM INHALER INH PRN ×3 (06:08→18:36)
[2017-12-07] MEDS: RESP: ALBUTEROL 2.5 MG/IPRATROPIUM 0.5 MG NEB (SCH) NEB (08:45)
--- NOTE | 2017-12-07 08:46 | HHI.PR ---
Subjective Remarks Ambulating in the room without oxygen she appears in not acute distress. Less shortness of breath and wheezing. Improving and says she wants to go home. No fever or chills overnight. No cough. Discussed with infectious disease Dr. Lua for IV antibiotics at home. Also discussed with case management working on discharge plan. Objective Vitals Vital Signs Date Time Temp Pulse Resp B/P (MAP) Pulse Ox O2 Delivery O2 Flow Rate FiO2 12/07/17 08:00 98.0 99 20 167/98 (121) 96 12/07/17 04:50 98.2 97 18 146/85 (105) 97 12/07/17 00:17 97.9 104 21 148/80 (102) 95 12/06/17 20:54 93 Nasal Cannula 2.00 12/06/17 20:36 98.1 109 18 163/92 (115) 93 12/06/17 16:00 97.5 108 19 140/86 (104) 94 12/06/17 12:45 97.6 107 20 161/92 97 12/06/17 12:29 97.7 110 22 176/95 95 12/06/17 12:00 97.7 110 22 176/95 (122) 95 I/O 12/06/17 12/06/17 12/06/17 12/07/17 12/07/17 12/07/17 07:00 15:00 23:00 07:00 15:00 23:00 Intake Total 240 ml 10 ml 1850 ml 830 ml Output Total 1600 ml 1800 ml Balance 240 ml 10 ml 250 ml -970 ml Intake Oral 240 ml 1440 ml 580 ml IV Total 250 ml Packed Cells 400 ml Blood Product IV Normal Saline Flush 10 ml 10 ml Output Urine Total 1600 ml 1800 ml # Bowel Movements 1 Result Diagram: 12/06/17 1811 12/06/17 0349 Imaging Last Impressions Foot MRI 12/05/17 0000 Signed Impressions: CONCLUSION: 1. There is no evidence of bone marrow edema in the distal phalanx of the firs t toe to suggest osteomyelitis. 2. There is some nonspecific edema in the soft tissues adjacent to the first t oe. 3. There is prominent osteoarthritis involving the first metatarsal-phalangeal joint. Chest CT 12/05/17 0000 Signed Impressions: CONCLUSION: 1. Small right pleural effusion and minimal left pleural effusion. 2. Scarring and/or atelectasis at the lung bases. 3. Cardiomegaly and small pericardial effusion. 4. The main pulmonary artery and right left branch vessels are prominent which could indicate pulmonary hypertension. Foot X-Ray 12/03/17 0000 Signed Impressions: CONCLUSION: Extensive erosive arthritic changes first metatarsophalangeal joint, likely gou t. Chest X-Ray 12/02/17 1643 Signed Impressions: CONCLUSION: Bibasilar pulmonary infiltrates with suspected pulmonary hypertension. Head CT 12/02/17 0000 Signed Impressions: CONCLUSION: 1. Stable exam 2. No evidence of acute infarct, hemorrhage, mass or edema. Objective Remarks GENERAL: 67 yo F, with some sob, wheezing. Very anxious. Pressured speech. CARDIOVASCULAR: Regular rate and rhythm. RESPIRATORY: No accessory muscle use. With SOB and wheezing. Diminished BS at the bases. GASTROINTESTINAL: Abdomen soft, non-tender, nondistended. Hepatic and splenic margins not palpable. MUSCULOSKELETAL: Extremities without clubbing, cyanosis, or edema. No obvious deformities. NEUROLOGICAL: Awake and alert. No obvious cranial nerve deficits. Normal speech. A/P Problem List: (1) Sepsis ICD Code: A41.9 - Sepsis, unspecified organism Status: Acute (2) PNA (pneumonia) ICD Code: J18.9 - Pneumonia, unspecified organism (3) Encephalopathy ICD Code: G93.40 - Encephalopathy, unspecified (4) BARB (acute kidney injury) ICD Code: N17.9 - Acute kidney failure, unspecified Assessment and Plan Sepsis 2/2 PNA and likely bacteremia Sepsis element resolved X ray right foot suggestive of gout PNA-continue vanc/zosyn MRSA bacteremia 1/4 bottles so far; Cconsult ID, appreciate recs Continue IV Vanc Discussed with infectious disease specialist Dr. Guajardo, appreciate recommendations. Plan for PICC line. Patient to have IV vancomycin seen as outpatient. Acute on chronic respiratory failure The pt has ILD/ COPD. She is not on home oxygen. CXR w/ bilateral infiltrates. 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 short course of prednisone. encourage ambulation. Needs home oxygen walk test prior to discharge. Add IS and acapella Encephalopathy resolved BARB-improving w/ IVFs. Monitor kidney function. Avoid nephrotoxins. RA On Remicade and methotrexate as an outpt. continue outpt regimen. Broken ribs/ vertebrae The pt has osteoporosis. The pt recently had a kyphoplasty and is in chronic pain. pain control. PT eval. Anemia S/t RA. HGB so far stable Patient is requesting hematology consult. Consult hematology Discussed with the patient, nurse TEVIN pl;an patient with MRSA bacteremia Discussed with Dr. Christine infectious disease specialist. Infusion therapy done by Dr. Guajardo plan for PICC line and patient can have vancomycin as outpatient. Case management also is following for discharge plan and working on arrangements. Problem Qualifiers (1) Sepsis: Qualified Codes: A41.9 - Sepsis, unspecified organism Amber De MD Dec 07, 2017 08:46
[2017-12-07] MEDS: DOCUSATE SODIUM 50 MG/SENNA 8.6 MG TAB PO SCH ×2 (09:00→20:21)
[2017-12-07] MEDS: SODIUM CHLORIDE 0.9% FLUSH 10 ML FLUSH IV FLUSH SCH ×2 (09:13→20:22)
[2017-12-07] MEDS: BENZONATATE 100 MG CAP PO SCH ×2 (09:14→20:22)
[2017-12-07] MEDS: CHOLECALCIFEROL (VIT D3) 5000 UNIT CAP PO SCH (09:14)
[2017-12-07] MEDS: CALCIUM CARBONATE 500 MG CHEWABLE TAB CHEW SCH ×2 (09:14→20:19)
[2017-12-07] MEDS: QUEtiapine FUMARATE 25 MG TAB PO SCH ×2 (09:15→11:26)
[2017-12-07] MEDS: predniSONE 20 MG TAB PO SCH (09:15)
--- NOTE | 2017-12-07 13:24 | HHI.FF ---
Infusion Therapy Location of Infusion Therapy: Home Health Care IV Infusion Order Patient Information Patient Weight 74 kg Diagnosis: Coded Allergies: bertholletia excelsa (Unverified Allergy, Intermediate, MOUTH SWELLING; RESP PROBLEMS, 12/02/17) diatrizoate meglumine (Unverified Allergy, Intermediate, SEVERE HIVES, ) gadobenic acid (Unverified Allergy, Intermediate, SEVERE HIVES, 12/02/17) gadodiamide (Unverified Allergy, Intermediate, SEVERE HIVES, 12/02/17) gadoteridol (Unverified Allergy, Intermediate, SEVERE HIVES, 12/02/17) iodixanol (Unverified Allergy, Intermediate, SEVERE HIVES, 12/02/17) iohexol (Unverified Allergy, Intermediate, SEVERE HIVES, 12/02/17) risedronate sodium (Unverified Allergy, Intermediate, SEVERE CHILLS, ) tree nut (Unverified Allergy, Intermediate, MOUTH SWELLING; RESP PROBLEMS , 12/02/17) walnut (Unverified Allergy, Intermediate, MOUTH SWELLING; DIFFICULT RESP. , 12/02/17) Administer Medication Vancomycin 1250 mg IV daily Start Treatment: Dec 07, 2017 Stop Treatment: Jan 02, 2018 Additional Information Venous access: PICC Line Additional Instructions [x] Peripheral flush and dressing changes per protocol [x] Implanted port and central fisher trot line: * Implanted port: 10 ml Normal Saline followed by 5 ml Heparin 100 units/ml Heparin flush after each use and monthly to maintain. [] May leave port accessed during therapy. [] May leave peripheral site accessed for duration of therapy. [x] If patient has SOB or respiratory distress, check oxygen saturation. If less than 90% or clinical signs of respiratory distress, administer oxygen at 2 L/min. via nasal cannula and notify physician. [x] Anaphylaxis/Reaction orders: * Stop infusion. * Keep IV line open with saline flush. * Notify physician. * Monitor vital signs every 15 minutes until symptoms resolve. * Check Oxygen saturation; Oxygen at 2 L/min. via nasal cannula if less than 90% or clinical signs of respiratory distress. * Administer diphenhydramine (Benadryl) 25 mg IV STAT, (unless patient has received as pre-med). May repeat once, if necessary. * Solu-Cortef 250 mg IVP over 30-60 seconds, use 100 mg vials for each dissolution. * Epinephrine (1mg/1 ml) 0.3 mg subcutaneously or IVP now with any signs of respiratory distress. * Check with physician for new additional pre-med orders if patient is re- challenged or re-treated. [x] May remove PICC line when treatment complete, after confirming with Physician. [x] If the patient is admitted to the hospital, the ED, or transferred via [facility] , complete transfer form including medication reconciliation order sheet. Laboratory Tests Weekly Labs: CBC w/diff, Creatinine, Vancomycin Trough Additional Information blood culturesx x 2 two weeks after antibiotics are completed Eva Guajardo MD Dec 07, 2017 13:24
[2017-12-07] MEDS ORDERED: EPIN1INJ21 IV PUSH (13:28)
[2017-12-07] MEDS ORDERED: VANC10IN IV (13:28)
[2017-12-07] MEDS ORDERED: EPIN1INJ21 SQ (13:28)
[2017-12-07] MEDS ORDERED: SOLU250I IV PUSH (13:28)
--- NOTE | 2017-12-07 13:38 | HHI.IDPN ---
Subjective Subjective Remarks pt c/o SOB, dry cough unable to expectorate afebrile CT negative MRI w/o e/o osteo 2 D echo with MV thickening repeat BC negative Antibiotics vancomycin Allergies: Coded Allergies: bertholletia excelsa (Unverified Allergy, Intermediate, MOUTH SWELLING; RESP PROBLEMS, 12/02/17) diatrizoate meglumine (Unverified Allergy, Intermediate, SEVERE HIVES, ) gadobenic acid (Unverified Allergy, Intermediate, SEVERE HIVES, 12/02/17) gadodiamide (Unverified Allergy, Intermediate, SEVERE HIVES, 12/02/17) gadoteridol (Unverified Allergy, Intermediate, SEVERE HIVES, 12/02/17) iodixanol (Unverified Allergy, Intermediate, SEVERE HIVES, 12/02/17) iohexol (Unverified Allergy, Intermediate, SEVERE HIVES, 12/02/17) risedronate sodium (Unverified Allergy, Intermediate, SEVERE CHILLS, ) tree nut (Unverified Allergy, Intermediate, MOUTH SWELLING; RESP PROBLEMS , 12/02/17) walnut (Unverified Allergy, Intermediate, MOUTH SWELLING; DIFFICULT RESP. , 12/02/17) Objective . Vital Signs Date Time Temp Pulse Resp B/P (MAP) Pulse Ox O2 Delivery O2 Flow Rate FiO2 12/07/17 12:00 98.1 104 22 156/85 (108) 94 12/07/17 08:45 95 Nasal Cannula 2.00 12/07/17 08:04 91 12/07/17 08:00 98.0 99 20 167/98 (121) 96 12/07/17 04:50 98.2 97 18 146/85 (105) 97 12/07/17 00:17 97.9 104 21 148/80 (102) 95 12/06/17 20:54 93 Nasal Cannula 2.00 12/06/17 20:36 98.1 109 18 163/92 (115) 93 12/06/17 16:00 97.5 108 19 140/86 (104) 94 . Laboratory Tests Test 12/06/17 03:49 12/06/17 18:11 White Blood Count 7.2 TH/MM3 Red Blood Count 2.27 MIL/MM3 Hemoglobin 7.5 GM/DL 9.5 GM/DL Hematocrit 21.0 % 28.3 % Mean Corpuscular Volume 92.5 FL Mean Corpuscular Hemoglobin 33.1 PG Mean Corpuscular Hemoglobin Concent 35.8 % Red Cell Distribution Width 14.7 % Platelet Count 256 TH/MM3 Mean Platelet Volume 7.3 FL Neutrophils (%) (Auto) 63.6 % Lymphocytes (%) (Auto) 24.8 % Monocytes (%) (Auto) 9.0 % Eosinophils (%) (Auto) 1.8 % Basophils (%) (Auto) 0.8 % Neutrophils # (Auto) 4.6 TH/MM3 Lymphocytes # (Auto) 1.8 TH/MM3 Monocytes # (Auto) 0.6 TH/MM3 Eosinophils # (Auto) 0.1 TH/MM3 Basophils # (Auto) 0.1 TH/MM3 CBC Comment DIFF FINAL Differential Comment Reticulocyte Count 1.8 % Absolute Reticulocyte Count 42.8 MIL/L Laboratory Tests Test 12/06/17 03:49 Blood Urea Nitrogen 11 MG/DL Creatinine 0.88 MG/DL Random Glucose 77 MG/DL Calcium Level 8.5 MG/DL Lactate Dehydrogenase 189 U/L Sodium Level 145 MEQ/L Potassium Level 3.3 MEQ/L Chloride Level 114 MEQ/L Carbon Dioxide Level 21.3 MEQ/L Anion Gap 10 MEQ/L Estimat Glomerular Filtration Rate 64 ML/MIN Iron Level 35 MCG/DL Total Iron Binding Capacity 185 MCG/DL Percent Iron Saturation 18.9 % Ferritin 468 NG/ML Vitamin B12 Level 1109 PG/ML 25-Hydroxy Vitamin D Total 28.4 ng/ML Folate 13.7 NG/ML Microbiology Date/Time Source Procedure Growth Status 12/05/17 07:00 Blood Peripheral Aerobic Blood Culture - Preliminary NO GROWTH IN 2 DAYS Resulted 12/05/17 07:00 Blood Peripheral Anaerobic Blood Culture - Preliminary NO GROWTH IN 2 DAYS Resulted 12/05/17 06:50 Blood Peripheral Aerobic Blood Culture - Preliminary NO GROWTH IN 2 DAYS Resulted 12/05/17 06:50 Blood Peripheral Anaerobic Blood Culture - Preliminary NO GROWTH IN 2 DAYS Resulted 12/06/17 14:30 Stool Stool Stool Occult Blood (LIZ) - Final HEMOCCULT NEGATIVE Complete 12/07/17 13:00 Sputum Expectorated Sputum Gram Stain Pending Received 12/07/17 13:00 Sputum Expectorated Sputum Sputum Culture Pending Received Imaging Last Impressions Foot MRI 5/30/18 0000 Signed Impressions: CONCLUSION: 1. There is no evidence of bone marrow edema in the distal phalanx of the firs t toe to suggest osteomyelitis. 2. There is some nonspecific edema in the soft tissues adjacent to the first t oe. 3. There is prominent osteoarthritis involving the first metatarsal-phalangeal joint. Chest CT 12/05/17 Signed Impressions: CONCLUSION: 1. Small right pleural effusion and minimal left pleural effusion. 2. Scarring and/or atelectasis at the lung bases. 3. Cardiomegaly and small pericardial effusion. 4. The main pulmonary artery and right left branch vessels are prominent which could indicate pulmonary hypertension. Foot X-Ray 12/03/17 Signed Impressions: CONCLUSION: Extensive erosive arthritic changes first metatarsophalangeal joint, likely gou t. Chest X-Ray 12/02/17 1643 Signed Impressions: CONCLUSION: Bibasilar pulmonary infiltrates with suspected pulmonary hypertension. Head CT 12/02/17 Signed Impressions: CONCLUSION: 1. Stable exam 2. No evidence of acute infarct, hemorrhage, mass or edema. Physical Exam CONSTITUTIONAL/GENERAL: This is an adequately nourished patient, in no apparent distress. TUBES/LINES/DRAINS: SKIN: No jaundice, rashes, or lesions. . Skin temperature appropriate. Not diaphoretic. CARDIOVASCULAR: Regular rate and rhythm without murmurs, gallops, or rubs. No JVD. Peripheral pulses symmetric. RESPIRATORY/CHEST: Symmetric, unlabored respirations. Clear to auscultation. Breath sounds equal bilaterally. + B/b dry crackles GASTROINTESTINAL: Abdomen soft, non-tender, nondistended. No hepato-splenomegaly , or palpable masses. No guarding. Bowel sounds present. GENITOURINARY: Without palpable bladder distension. MUSCULOSKELETAL: Extremities without clubbing, cyanosis, or edema. No joint tenderness or effusion noted. No calf tenderness. No mottling or clubbing. Well healed scar over R knee well healed scar over R forearm NEUROLOGICAL: Awake and alert. Motor and sensory grossly within normal limits. Follows commands. Clear speech . Moves all extremities. PSYCHIATRIC: pleasant and calm today Assessment & Plan Remarks Sepsis in immunisuppresdsed pt low grade MRSA bacteremia source: ? R hallux, PNA, vs endovascular R hallux paronichium Immunosuppressed, on Remicade COPD/IPF - cont vancomycin todal of 4 weeks. Prt is immunosuppresse repeat BC 2 weeks after tx is completed OPAT forms filled out PICC line O to dc home dw Eva Washington MD Dec 07, 2017 13:38
--- NOTE | 2017-12-07 14:23 | HHI.FF ---
Face to Face Verification Diagnosis: (1) Non-STEMI (non-ST elevated myocardial infarction) (2) Sepsis (3) Altered mental status (4) Pneumonia (5) Encephalopathy (6) BARB (acute kidney injury) (7) PNA (pneumonia) (8) Anemia of other chronic disease (9) Adjustment disorder with anxiety Physical Therapy Order: Evaluate and Treat Home Health Nursing Order: Medical education Signs/symptoms of disease process I have seen patient Gaby Pierre on 12/07/17. My clinical findings support the need for the requested home health care services because: Ltd mobility - disease progression Patient has SOB I certify that my clinical findings support that this patient is homebound because: Post-op weakness Amber De MD Dec 07, 2017 14:23
--- NOTE | 2017-12-07 14:23 | HHI.DS ---
Discharge Summary Admission Date December 02, 2017 at 18:43 Discharge Date: Dec 07, 2017 Admitting Diagnosis acute sespis, pneumonia, altered mental status (1) Sepsis ICD Code: A41.9 - Sepsis, unspecified organism Status: Acute (2) PNA (pneumonia) ICD Code: J18.9 - Pneumonia, unspecified organism (3) Encephalopathy ICD Code: G93.40 - Encephalopathy, unspecified (4) BARB (acute kidney injury) ICD Code: N17.9 - Acute kidney failure, unspecified Procedures none Brief History - From Admission This is a 67-year-old female with a PMH of Rheumatoid Arthritis, Seizure Disorder and Anxiety was brought to the ER by EMS for AMS and fever. Per report , patient was noted to be confused w/ temp of 104. On arrival, patient significantly agitated, not answering questions appropriately, requiring Ativan 0.5mg IV. On arrival, BP 143/75, HR 125, O2 sat 97% on RA, Temp 101.2. WBC 10.2. Creatinine 1.48, previously 0.91 on 08/14/2017. Troponin negative. Lactic Acid 1.0. UA with small LE. CXR with bibasilar pulmonary infiltrates with suspected pulmonary hypertension. CT Head with no acute findings. S/p Vanc/Zosyn in ER. While in ER, pt w/ improved mentation, now states she had gone for a walk and when she returned home felt dizzy, took her BP which was in the 80's systolic. Pt w/ episode of hypotension in the ER requiring IVF bolus. No mental status change. CBC/BMP: 12/06/17 1811 12/06/17 0349 Significant Findings Laboratory Tests Test 12/05/17 23:00 12/06/17 03:49 12/06/17 18:11 Vancomycin Level Trough 16.2 MCG/ML (5.0-10.0) Red Blood Count 2.27 MIL/MM3 (4.00-5.30) Hemoglobin 7.5 GM/DL (11.6-15.3) 9.5 GM/DL (11.6-15.3) Hematocrit 21.0 % (35.0-46.0) 28.3 % (35.0-46.0) Monocytes (%) (Auto) 9.0 % (0.0-8.0) Potassium Level 3.3 MEQ/L (3.5-5.1) Chloride Level 114 MEQ/L (98-107) Estimat Glomerular Filtration Rate 64 ML/MIN (>89) Iron Level 35 MCG/DL (50-170) Total Iron Binding Capacity 185 MCG/DL (250-450) Percent Iron Saturation 18.9 % (20-50) Ferritin 468 NG/ML (8-252) Vitamin B12 Level 1109 PG/ML (193-986) 25-Hydroxy Vitamin D Total 28.4 ng/ML (30-100) Imaging Last Impressions Foot MRI 12/05/17 Signed Impressions: CONCLUSION: 1. There is no evidence of bone marrow edema in the distal phalanx of the firs t toe to suggest osteomyelitis. 2. There is some nonspecific edema in the soft tissues adjacent to the first t oe. 3. There is prominent osteoarthritis involving the first metatarsal-phalangeal joint. Chest CT 12/05/17 Signed Impressions: CONCLUSION: 1. Small right pleural effusion and minimal left pleural effusion. 2. Scarring and/or atelectasis at the lung bases. 3. Cardiomegaly and small pericardial effusion. 4. The main pulmonary artery and right left branch vessels are prominent which could indicate pulmonary hypertension. Foot X-Ray 12/03/17 Signed Impressions: CONCLUSION: Extensive erosive arthritic changes first metatarsophalangeal joint, likely gou t. Chest X-Ray 12/02/17 1643 Signed Impressions: CONCLUSION: Bibasilar pulmonary infiltrates with suspected pulmonary hypertension. Head CT 12/02/17 Signed Impressions: CONCLUSION: 1. Stable exam 2. No evidence of acute infarct, hemorrhage, mass or edema. PE at Discharge GENERAL: 67 yo F, with some sob, wheezing. Very anxious. Pressured speech. CARDIOVASCULAR: Regular rate and rhythm. RESPIRATORY: No accessory muscle use. With SOB and wheezing. Diminished BS at the bases. GASTROINTESTINAL: Abdomen soft, non-tender, nondistended. Hepatic and splenic margins not palpable. MUSCULOSKELETAL: Extremities without clubbing, cyanosis, or edema. No obvious deformities. NEUROLOGICAL: Awake and alert. No obvious cranial nerve deficits. Normal speech. Hospital Course Sepsis 2/2 PNA and likely bacteremia Sepsis element resolved X ray right foot suggestive of gout PNA-continue vanc/zosyn MRSA bacteremia 1/4 bottles so far; Cconsult ID, appreciate recs Continue IV Vanc Discussed with infectious disease specialist Dr. Guajardo, appreciate recommendations. Plan for PICC line. Patient to have IV vancomycin seen as outpatient. Acute on chronic respiratory failure The pt has ILD/ COPD. She is not on home oxygen. CXR w/ bilateral infiltrates. 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 short course of prednisone. encourage ambulation. Needs home oxygen walk test prior to discharge. Add IS and acapella Encephalopathy resolved BARB-improving w/ IVFs. Monitor kidney function. Avoid nephrotoxins. RA On Remicade and methotrexate as an outpt. continue outpt regimen. Broken ribs/ vertebrae The pt has osteoporosis. The pt recently had a kyphoplasty and is in chronic pain. pain control. PT eval. Anemia S/t RA. HGB so far stable Patient is requesting hematology consult. Consult hematology Discussed with the patient, nurse TEVIN pl;an patient with MRSA bacteremia Discussed with Dr. Guajardo infectious disease specialist. Infusion therapy done by Dr. Guajardo plan for PICC line and patient can have vancomycin as outpatient. Antibiotic at PR: Vancomycin 1250 mg IV daily. Start Treatment: Dec 07, 2017. Stop Treatment: Jan 02, 2018 Weekly Labs: CBC w/diff, Creatinine, Vancomycin Trough Additional Information To have blood cultures x 2, two weeks after antibiotics are completed Pt Condition on Discharge: Stable Discharge Disposition: Disch w/ Home Health Serv Discharge Time: > 30 minutes Discharge Instructions DIET: Follow Instructions for: Heart Healthy Diet, Diabetic Diet Activities you can perform: Regular-No Restrictions Follow up Referrals: Oncology/Hematology - 1 Week PCP Follow-up - 2-3 Days Pulmonology - 2 Weeks New Orders: CBC WITH DIFF - 1 Week CREATININE - 1 Week VANCOMYCIN TROUGH - 1 Week New Medications: Albuterol 18 GM Inh (Ventolin Hfa 18 GM Inh) 90 Mcg/Act Aer 2 PUFF INH Q4-6H PRN for SHORTNESS OF BREATH, #1 INHALER 0 Refills Budesonide Powder Inh (Pulmicort Flexhaler) 180 Mcg/Act Inhp 180 MCG INH Q12HR for Asthma Management, #1 INHALER 0 Refills Epinephrine Inj (Epinephrine Inj) 1 Mg/Ml (1 Ml) Inj 0.3 MG IV PUSH ONCE PRN for ALLERGIC REACTION, #1 VIAL Epinephrine Inj (Epinephrine Inj) 1 Mg/Ml (1 Ml) Inj 0.3 MG SQ ONCE PRN for ALLERGIC REACTION, #1 VIAL Give with any signs of respiratory distress. Hydrocortisone Inj (Solu-Cortef Inj) 250 Mg/2 Ml Inj 250 MG IV PUSH ONCE PRN for ALLERGIC REACTION, #1 VIAL 0 Refills Give over 30-60 seconds. Ipratropium-Albuterol Neb (Duoneb) 0.5-2.5 Mg/3 Ml Neb 1 NEBULE INH Q4HR NEB for Breathing Treatment, #180 NEBULE 0 Refills Nebulizer (Nebulizer) 1 Mis Mis EA .XX DIRECTED for Breathing Treatment, #1 0 Refills Spacer/Device For Mdi (Inspirease Drug Delivery) 1 Ea Mis EA .XX DIRECTED, #1 0 Refills Vancomycin Inj (Vancomycin Inj) 10 Gram Inj 1250 MG IV DAILY for Infection for 28 Days, VIAL Vancomycin Inj (Vancomycin Inj) 1 Gram Inj 1200 MG IV DAILY for Infection for 26 Days, BAG 0 Refills Vancomycin 1250 mg IV daily. Start Treatment: Dec 07, 2017. Stop Treatment: Jan 02, 2018 Weekly Labs: CBC w/diff, Creatinine, Vancomycin Trough Additional Information To have blood cultures x 2, two weeks after antibiotics are completed Hydrocodone/Acetaminophen (Hydrocodone-Acetamin 7.5-325) 7.5 Mg-325 Mg Tablet 1 TAB PO Q4H PRN for pain 3-10, #7 TAB Continued Medications: Benzonatate (Tessalon Perles) 100 Mg Cap 100 MG PO TID PRN for COUGH, CAP 0 Refills Brivaracetam (Briviact) 50 Mg Tab 50 MG PO HS for Control Seizures, TAB 0 Refills Hydroxyzine HCl (Hydroxyzine HCl) 50 Mg Tab 50 MG PO TID, TAB 0 Refills Lorazepam (Ativan) 1 Mg Tab 1 MG PO HS, TAB 0 Refills Amber De MD Dec 07, 2017 14:23
[2017-12-07] MEDS ORDERED: VENTAER INH (14:27)
[2017-12-07] MEDS ORDERED: HYDR-3580 PO (14:29)
[2017-12-07] MEDS ORDERED: INSPIREASE DRUG1 EA (15:02)
[2017-12-07] MEDS ORDERED: PULM180I INH (15:02)
[2017-12-07] MEDS ORDERED: IPRASOL INH (15:02)
--- NOTE | 2017-12-07 15:03 | HHI.FF ---
Face to Face Verification Diagnosis: (1) Sepsis (2) Altered mental status (3) Adjustment disorder with anxiety (4) Anemia of other chronic disease (5) BARB (acute kidney injury) (6) ILD (interstitial lung disease) Home Health Nursing Order: Medical education Signs/symptoms of disease process Medication education-adverse effect Nursing assessment with vital signs IV medication administration Instructions: Respiratory therapy evaluate and treat I have seen patient Gaby Pierre on 12/07/17. My clinical findings support the need for the requested home health care services because: Ltd mobility - disease progression Patient has SOB I certify that my clinical findings support that this patient is homebound because: Post-op weakness Amber De MD Dec 07, 2017 15:03
[2017-12-07] MEDS ORDERED: NEBULIZER1 MI1 (15:05)
[2017-12-07] MEDS: RESP: ALBUTEROL 2.5 MG/IPRATROPIUM 0.5 MG NEB (PRN) NEB (16:09)
[2017-12-07] MEDS ORDERED: VANC1000P IV (18:07)
[2017-12-07] MEDS ORDERED: SODIUM CHLORIDE 0.9% FLUSH 10 ML FLUSH IV FLUSH PRN (18:30)
[2017-12-07] MEDS: ENOXAPARIN SODIUM 40 MG/0.4 ML SYRINGE SQ SCH (18:36)
[2017-12-07] MEDS: VANCOMYCIN INJ 1,250 MG in SODIUM CHLOR 0.9% 250 ML INJ 250 ML IV SCH (20:19)
[2017-12-07] MEDS: BRIVARACETAM PO SCH (20:21)
[2017-12-07] MEDS: LORazepam 1 MG TAB PO PRN (20:29)
[2017-12-08] MEDS ORDERED: SODIUM CHLORIDE 0.9% FLUSH 10 ML FLUSH IV FLUSH SCH (09:00)
[2017-12-08] MEDS ORDERED: PHARMACY ORDERED LAB ONE (20:45)
== END 2017-12-07 22:14 | disposition home health service (06) | DRG 871 ==
LOC: NEPE 16:30 → NEDA 18:43 → HIMW 21:25 → N07B 12-03 14:21
PROVIDERS: ADMIT Hospitalist; ATTEND Hospitalist
PROC: 30233N1 Transfusion of Nonautologous Red Blood Cells into Peripheral Vein, Percutaneous Approach (ICD-10-PCS; principal; 2017-12-06)
PROC: 05HY33Z Insertion of Infusion Device into Upper Vein, Percutaneous Approach (ICD-10-PCS; 2017-12-07)
DX: A41.02 Sepsis due to Methicillin resistant Staphylococcus aureus (principal); J18.9 Pneumonia, unspecified organism; J96.20 Acute and chronic respiratory failure, unspecified whether with hypoxia or hypercapnia; N17.9 Acute kidney failure, unspecified; G93.40 Encephalopathy, unspecified; J84.10 Pulmonary fibrosis, unspecified; J44.0 Chronic obstructive pulmonary disease with (acute) lower respiratory infection; M06.9 Rheumatoid arthritis, unspecified; D63.8 Anemia in other chronic diseases classified elsewhere; R65.20 Severe sepsis without septic shock; G89.29 Other chronic pain; M81.0 Age-related osteoporosis without current pathological fracture; M19.079 Primary osteoarthritis, unspecified ankle and foot; F43.22 Adjustment disorder with anxiety; F41.9 Anxiety disorder, unspecified; M10.9 Gout, unspecified; K21.9 Gastro-esophageal reflux disease without esophagitis; G40.909 Epilepsy, unspecified, not intractable, without status epilepticus; Z96.651 Presence of right artificial knee joint; Z98.890 Other specified postprocedural states; Z88.8 Allergy status to other drugs, medicaments and biological substances; Z79.52 Long term (current) use of systemic steroids; Z87.11 Personal history of peptic ulcer disease; Z87.891 Personal history of nicotine dependence
CPT/HCPCS: 36430; 70450; 71045; 71250; 73630; 73718; 76937; 80048; 80053; 80202; 81001; 82272; 82306; 82607; 82728; 82746; 83540; 83550; 83605; 83615; 83690; 83735; 83921; 84155; 84443; 84484; 85014; 85018; 85025; 85027; 85044; 86850; 86900; 86901; 86920; 87040; 87070; 87186; 87205; 87641; 87804; 93005; 93308; 94150; 94618; 94640; 94664; 94667; 94668; 96365; 96367; 96375; J0610; J1650; J1885; J2060; J2543; J3370; J7030; J7040; J7050; J7512; P9016; P9612